=== PATIENT | female | born 1950 | race Caucasian/White ===

== ENCOUNTER 2020-08-21 06:21 | Day surgery (SDC) | payer OTHER, SELFPAY ==
[2020-08-17 10:30] VITALS: BMI 27.8
--- NOTE | 2020-08-19 10:37 | HO.ANESPROP2 ---
Documented by User: Awa Ortega 08/20/20 10:04 HPI - Anesthesia Eval Consult details Narrative: 69yo F for [facility] Past Medical History Medical History GERD (gastroesophageal reflux disease) History of diverticulitis History of snoring HTN (hypertension) Hx of breast cancer Surgical History Surgical History H/O esophagogastroduodenoscopy H/O left mastectomy H/O partial resection of colon H/O right mastectomy History of breast reconstruction Hx of carpal tunnel repair Hx of colonoscopy Hx of hammer toe correction Hx of varicose vein stripping Social History Social History Smoking Status: Former smoker Smoked in Last 30 Days: No Use of substances other than those prescribed or required for medical reasons: No Advance Directives Information Provided: No Recently lost weight without trying: No Meds Allergies Allergy/AdvReac Type Severity Reaction Status Date / Time adhesive Allergy Intermediate blisters Uncoded 08/17/20 10:51 From AUGMENTIN AdvReac Unknown INTOLERANCE Uncoded 08/06/20 15:04 From Augmentin AdvReac Unknown INTOLERANCE Uncoded 08/06/20 15:04 Home Medications Medication Instructions Recorded Confirmed Type anastrozole 1 tab PO DAILY 08/17/20 08/17/20 History cholecalciferol (vitamin D3) 1 cap PO DAILY 08/17/20 08/17/20 History metoprolol succinate 1 tab PO DAILY 08/17/20 08/21/20 History omeprazole 1 cap PO BID 08/17/20 08/17/20 History Exam Exam Date and Time: August 19, 2020 1037 Height,Weight and Vital Signs: Height 5 ft 3 in Weight 71.214 kg Pertinent Lab Results Pertinent Lab Results: EKG 04/26/20: NSR@84, Nonspec ST abn 04/26/20Lytes/Bun/Creat and CBC WNL 04/26/20 Covid RNA Neg Assessment and Plan Assessment Anesthesia Assessment: Chart Reviewed (08/19/20 HT) Documented by User: Paul Esquivel 08/21/20 07:16 PMFSH Past Medical History Medical History GERD (gastroesophageal reflux disease) History of diverticulitis History of snoring HTN (hypertension) Hx of breast cancer Surgical History Surgical History H/O esophagogastroduodenoscopy H/O left mastectomy H/O partial resection of colon H/O right mastectomy History of breast reconstruction Hx of carpal tunnel repair Hx of colonoscopy Hx of hammer toe correction Hx of varicose vein stripping Social History Social History Smoking Status: Former smoker Smoked in Last 30 Days: No Use of substances other than those prescribed or required for medical reasons: No Advance Directives Information Provided: No Recently lost weight without trying: No Meds Allergies Allergy/AdvReac Type Severity Reaction Status Date / Time adhesive Allergy Intermediate blisters Uncoded 08/17/20 10:51 From AUGMENTIN AdvReac Unknown INTOLERANCE Uncoded 08/06/20 15:04 From Augmentin AdvReac Unknown INTOLERANCE Uncoded 08/06/20 15:04 Home Medications Medication Instructions Recorded Confirmed Type anastrozole 1 tab PO DAILY 08/17/20 08/17/20 History cholecalciferol (vitamin D3) 1 cap PO DAILY 08/17/20 08/17/20 History metoprolol succinate 1 tab PO DAILY 08/17/20 08/21/20 History omeprazole 1 cap PO BID 08/17/20 08/17/20 History Exam Airway Mallampati Class: II TM Dist: >3cm Neck ROM: Full Loose/Missing/Broken Teeth: No Heart: rrr Lungs: CTA b/l Assessment and Plan Assessment Anesthesia Assessment: Anesthesia Plan Discussed, Consent Obtained, PAT Visit and Chart Reviewed Final Anesthetic Review NPO: Yes (>8 hours) ASA Class: II Final Preanesthetic Review: No Changes in Pt Med Stat, Meds & Allergies Reviewed, Consent Obtained/Reviewed, Med/Surg/Anes Hx Reviewed and Anes Risks/Benef Reviewed Patient Risk: Low Procedure Risk: Low Anesthetic Plan Anesthetic Plan: MAC: Disposition: Standard PACU
[2020-08-21 06:50] VITALS: BP 131/70; PULSE 79; RESP 16; TEMP 36.3; O2SAT 99; BMI 27.8
[2020-08-21 08:10] VITALS: BP 103/56; PULSE 84; RESP 12; TEMP 36.8; O2SAT 94
--- NOTE | 2020-08-21 08:19 | PM.OP ---
Brief Operative Note Date of procedure: 08/21/20 Pre-op diagnosis: GERD Post-op diagnosis: same Procedure: EGD with biopsy. Small HH, Gastric polyps, Bx EGJ at 34cm, gastric polyps, gastric antrum, and esophagus at 25cm Anesthesia: MAC Surgeon: Adam Austin Pathology: other (gastric antrum, gastric polyps, EGJ at 34cm, esophagus at 25cm) Condition: stable Disposition: PACU
[2020-08-21 08:25] VITALS: BP 105/51; PULSE 78; RESP 18; O2SAT 97
[2020-08-21 08:40] VITALS: BP 113/62; BP 116/62; PULSE 70; PULSE 76; RESP 14; RESP 16; TEMP 36.8; O2SAT 96; O2SAT 97
--- NOTE | 2020-08-21 13:14 | OP_ITS ---
SURGEON: Adam Austin MD INDICATIONS: The patient presents for evaluation of gastroesophageal reflux and chest discomfort. Full consent has been obtained from her for this, including risks of bleeding and perforation. PREOPERATIVE DIAGNOSIS: POSTOPERATIVE DIAGNOSIS: PROCEDURE PERFORMED: Esophagogastroduodenoscopy with biopsy. ESTIMATED BLOOD LOSS: COMPLICATIONS: ANESTHESIA: Monitored anesthesia care. ASSISTANTS: SPECIMENS: PREOPERATIVE DIAGNOSES: Gastroesophageal reflux and chest discomfort. POSTOPERATIVE DIAGNOSES: Gastroesophageal reflux and chest discomfort, small hiatal hernia, gastric polyps, rule out eosinophilic esophagitis. DESCRIPTION OF PROCEDURE: The patient was placed in the left lateral decubitus position. The Olympus video gastroscope was passed in the posterior oropharynx and upper esophagus under direct vision. The scope was passed slowly into the distal esophagus. The gastroesophageal junction appeared at 34 cm. There was some minimal irregularity, but no evidence of esophagitis nor any Nicole's mucosa. There was a small hiatal hernia. The scope was advanced to pylorus and duodenum cannulated the descending portion. The duodenum including the bulb appeared normal without mass or ulceration. The scope was withdrawn back into the stomach. The gastric antrum and body appeared normal with good peristalsis. The scope was retroflexed visualizing the proximal stomach carefully, which appeared normal, without any sign of mass or ulceration, other than hyperplastic appearing gastric polyps. The scope was straightened. Biopsies were obtained from the gastric antrum and from some of the polyps. The scope was withdrawn back in the esophagus. Biopsies were obtained at the EG junction at 34 cm. The esophageal mucosa appeared completely normal. Biopsies were obtained at 25 cm. The scope was withdrawn from the patient. She tolerated the procedure well and was returned to the recovery area in stable condition. IMPRESSION: 1. Gastric polyps. 2. Small hiatal hernia. 3. Gastroesophageal reflux. 4. Rule out eosinophilic esophagitis. PLAN: The patient will continue omeprazole once or twice a day as needed for reflux symptoms. She did have a negative stress test recently, but has been instructed to follow up with Dr. Cherry as to whether any other workup for her chest pain is required. She may be having symptoms of esophageal spasm, although at this point, it is difficult to say. She does have gallstones noted on an ultrasound, but is not having any particular upper abdominal pain, but may need further evaluation of that with a HIDA scan to rule out any atypical symptoms of gallbladder disease that milagro be contributing to the upper GI complaints. She has been advised to see me within 2 to 3 months for a followup visit as well. If symptoms persist before I see her, we can obtain a HIDA scan as mentioned, and may also want to try an antispasmodic to treat any component of esophageal spasm if her workup remains negative from a cardiac standpoint. This has been discussed with the patient today. MD CLARK Hernandez/SHASTA / [id number] MTDD
== END 2020-08-21 09:00 | disposition home or self-care (01) ==
PROVIDERS: PCP Internal Medicine; Visit Provider Internal Medicine
PROC: 0DJ08ZZ Inspection of Upper Intestinal Tract, Via Natural or Artificial Opening Endoscopic (ICD-10-PCS; CPT 43235; principal; 2020-08-21 07:30)
DX: K21.9 Gastro-esophageal reflux disease without esophagitis (principal); R07.89 Other chest pain; K20.90 Esophagitis, unspecified without bleeding; K31.7 Polyp of stomach and duodenum; K22.4 Dyskinesia of esophagus; K44.9 Diaphragmatic hernia without obstruction or gangrene; K80.80 Other cholelithiasis without obstruction; I10 Essential (primary) hypertension; R11.0 Nausea; Z79.899 Other long term (current) drug therapy; Z85.3 Personal history of malignant neoplasm of breast; Z87.891 Personal history of nicotine dependence; Z90.13 Acquired absence of bilateral breasts and nipples
CPT/HCPCS: 43239; 88305; 88342; J0290

== ENCOUNTER 2020-08-28 07:48 | Outpatient (REF) | payer OTHER, SELFPAY ==
[2020-08-28 09:24] LABS: Blood Urea Nitrogen 15 mg/dL (9-16); Estimated Glomerular Filt Rate > 60
== END 2020-08-28 07:49 ==
LOC: HO.LAB 07:48
PROVIDERS: PCP Internal Medicine; Visit Provider Internal Medicine Medical Oncology
DX: C50.919 Malignant neoplasm of unspecified site of unspecified female breast (principal)
CPT/HCPCS: 82565; 84520

== ENCOUNTER 2020-09-03 14:10 | Outpatient (REF) | payer OTHER, SELFPAY ==
--- NOTE | 2020-09-03 14:16 | CT_ITS ---
EXAMINATION: CT CHEST WITH CONTRAST CLINICAL INFORMATION: History of left breast cancer. Left chest pain. COMPARISON: 02/03/2018 TECHNIQUE: Multidetector volumetric CT imaging of the chest was obtained after the administration of 65 mL of Omnipaque 350 intravenous contrast without immediate adverse reactions. Axial MIP volume rendering provided. Sagittal and coronal reformatted images were obtained. This CT examination was performed using dose optimization techniques as appropriate, variously including the following: *Automated exposure control *Adjustment of mA and/or kV according to patient size (this includes techniques or standardized protocols for targeted exams where dose is matched to indication/reason for exam; i.e. extremities or head) *Use of iterative reconstruction technique DLP: 238 mGy-cm FINDINGS: LUNGS: Central airways are patent. No consolidation. No suspicious pulmonary nodules. Likely a 0.3 cm calcified granuloma at the right base on series 5 image 374. No pneumothorax. MEDIASTINUM: The mediastinum is normal. PLEURA: There is no pleural effusion. No pleural mass or thickening. AXILLA: No lymphadenopathy. Bilateral chest wall surgical clips. UPPER ABDOMEN: Cholelithiasis. No inflammatory changes of the gallbladder. Area of increased density in the right lobe of the liver is similar to prior from 2018. OSSEOUS STRUCTURES: No acute or suspicious osseous abnormality. Mild degenerative changes of the spine. IMPRESSION: No suspicious findings in the chest. No acute pulmonary finding. No lymphadenopathy. No osseous abnormality.
[2020-09-03] MEDS: iohexoL 350 MG/ML 100 ML INFUS..BTL IV (15:32)
== END 2020-09-03 14:11 | disposition home or self-care (01) ==
LOC: HO.CT 14:10
PROVIDERS: PCP Internal Medicine; Visit Provider Internal Medicine Medical Oncology
DX: R07.89 Other chest pain (principal); Z85.3 Personal history of malignant neoplasm of breast; J84.10 Pulmonary fibrosis, unspecified; R93.2 Abnormal findings on diagnostic imaging of liver and biliary tract; K80.20 Calculus of gallbladder without cholecystitis without obstruction
CPT/HCPCS: 71260

== ENCOUNTER 2020-09-29 15:23 | Outpatient (REF) | payer OTHER, SELFPAY ==
--- NOTE | 2020-09-29 15:35 | US_ITS ---
EXAMINATION: US PELVIS COMPLETE US PELVIS ENDOVAGINAL CLINICAL INFORMATION: Bloating COMPARISON: Small bowel follow-through 05/13/2020. Prior CT scan 08/13/2018 TECHNIQUE: Transabdominal and transvaginal images of the pelvis were obtained. FINDINGS: UTERUS: Anteverted. Normal size and contour, measuring 5.5 x 2.3 x 4.1 cm (cervix to fundus x AP x transverse). The endometrial stripe is slightly heterogeneous but it is normal in thickness, measuring 0.3 cm in width. RIGHT OVARY: Not seen. No adnexal mass. LEFT OVARY: Not seen. No adnexal mass. FREE FLUID: No pelvic free fluid. US/US pelvic complete IMPRESSION: The endometrial stripe is slightly heterogeneous but it is thin, within normal limits in a postmenopausal female patient. Neither ovary is seen but there is no adnexal mass or free fluid present.
--- NOTE | 2020-09-29 15:35 | US_ITS ---
EXAMINATION: US PELVIS COMPLETE US PELVIS ENDOVAGINAL CLINICAL INFORMATION: Bloating COMPARISON: Small bowel follow-through 05/13/2020. Prior CT scan 08/13/2018 TECHNIQUE: Transabdominal and transvaginal images of the pelvis were obtained. FINDINGS: UTERUS: Anteverted. Normal size and contour, measuring 5.5 x 2.3 x 4.1 cm (cervix to fundus x AP x transverse). The endometrial stripe is slightly heterogeneous but it is normal in thickness, measuring 0.3 cm in width. RIGHT OVARY: Not seen. No adnexal mass. LEFT OVARY: Not seen. No adnexal mass. FREE FLUID: No pelvic free fluid. US/US transvaginal IMPRESSION: The endometrial stripe is slightly heterogeneous but it is thin, within normal limits in a postmenopausal female patient. Neither ovary is seen but there is no adnexal mass or free fluid present.
== END 2020-09-29 15:24 | disposition home or self-care (01) ==
LOC: HO.HMGCX 15:23
PROVIDERS: PCP Internal Medicine; Visit Provider Obstetrics & Gynecology Gynecology
DX: R14.0 Abdominal distension (gaseous) (principal)
CPT/HCPCS: 76830; 76856

== ENCOUNTER 2020-12-03 09:52 | Outpatient (REF) | payer OTHER, SELFPAY ==
[2020-12-03 10:13] LABS: COVID-19 Test Negative (Negative); IDNOW Serial# 55D5AD1C
== END 2020-12-03 09:53 | disposition home or self-care (01) ==
LOC: HO.EMPCOV 09:52
PROVIDERS: Visit Provider Internal Medicine
DX: Z20.822 Contact with and (suspected) exposure to COVID-19 (principal)
CPT/HCPCS: 36415; 87635; C9803

== ENCOUNTER 2020-12-24 13:05 | Outpatient (REF) | payer OTHER, SELFPAY ==
[2020-12-24 13:26] LABS: COVID-19 Test Negative (Negative); IDNOW Serial# 55D5AD1C
== END 2020-12-24 13:06 | disposition home or self-care (01) ==
LOC: HO.LAB 13:05
PROVIDERS: Visit Provider Internal Medicine
DX: Z20.822 Contact with and (suspected) exposure to COVID-19 (principal)
CPT/HCPCS: 36415; 87635; C9803

== ENCOUNTER 2020-12-30 15:01 | Outpatient (REF) | payer OTHER, SELFPAY ==
[2020-12-30 15:28] LABS: COVID-19 Test Negative (Negative)
== END 2020-12-30 15:02 | disposition home or self-care (01) ==
LOC: HO.EMPCOV 15:01
PROVIDERS: Visit Provider Internal Medicine
DX: Z20.822 Contact with and (suspected) exposure to COVID-19 (principal)
CPT/HCPCS: 36415; 87635; C9803

== ENCOUNTER 2021-01-22 08:47 | Outpatient (REF) | payer OTHER, SELFPAY ==
--- NOTE | ~2021-01-22 | XR_ITS ---
EXAMINATION: XR CHEST CLINICAL INFORMATION: Chest pain COMPARISON: Previous chest x-ray most recent April 2020 TECHNIQUE: 2 views of the chest were obtained. FINDINGS: The cardiac and mediastinal contours are stable. The lungs are clear. There is no pleural effusion or pneumothorax. There are surgical clips projecting over both breasts and the left axilla. There are degenerative changes of the spine and scoliosis.. XR/XR chest 2V IMPRESSION: No evidence for acute disease in the chest.
== END 2021-01-22 08:48 | disposition home or self-care (01) ==
LOC: HO.HMGCX 08:47
PROVIDERS: PCP Internal Medicine; Visit Provider Internal Medicine
DX: R07.9 Chest pain, unspecified (principal); Z85.3 Personal history of malignant neoplasm of breast
CPT/HCPCS: 71046

== ENCOUNTER 2021-01-28 06:29 | Outpatient (REF) | payer OTHER, SELFPAY ==
[2021-01-28 07:49] LABS: Hematocrit 44.7 % (37-47); Hemoglobin 14.5 g/dl (12.0-16.0); Mean Corpuscular HGB Conc 32.4 g/dl (31.0-35.0); Mean Corpuscular Hemoglobin 29.9 pg (27.0-33.0); Mean Corpuscular Volume 92.2 fL (80-98); Mean Platelet Volume 11.5 fL (9.4-12.3); Platelet Count 265 X10*3/uL (160-400); Red Blood Count 4.85 X10*6/uL (4.20-5.50); Red Cell Distribution Width 12.4 % (11.0-16.0); White Blood Count 6.2 X10*3/uL (4.8-10.8)
[2021-01-28 08:05] LABS: Alanine Aminotransferase 17 U/L (0-31); Albumin Level 4.1 g/dL (3.5-5.0); Alkaline Phosphatase 67 U/L (39-117); Anion Gap 13 (12-20); Aspartate Amino Transferase 16 U/L (5-31); Bilirubin Total 0.7 mg/dL (0.0-1.0); Blood Urea Nitrogen 15 mg/dL (9-16); Calcium 9.2 mg/dL (8.4-10.2); Carbon Dioxide 29 mmol/L (22-29); Chloride 104 mmol/L (96-108); Cholesterol 214 mg/dL; Estimated Glomerular Filt Rate > 60; Glucose Fasting 100 mg/dL (60-99); HDL Cholesterol 57 mg/dL; LDL Cholesterol Calculated 131 mg/dl; Potassium 4.6 mmol/L (3.3-5.1); Sodium 141 mmol/L (135-145); Total Protein 6.6 g/dL (6.5-8.0); Triglycerides 132 mg/dL
[2021-01-28 08:27] LABS: TSH reflex Free T4 0.97 uIU/mL (0.32-4.0); Vitamin D 25-OH Total 45.8 ng/mL (>30)
== END 2021-01-28 06:30 | disposition home or self-care (01) ==
LOC: HO.LAB 06:29
PROVIDERS: PCP Internal Medicine; Visit Provider Internal Medicine
DX: Z00.00 Encounter for general adult medical examination without abnormal findings (principal); K43.9 Ventral hernia without obstruction or gangrene; I10 Essential (primary) hypertension
CPT/HCPCS: 36415; 80053; 80061; 82306; 84443; 85027

== ENCOUNTER 2021-02-23 12:33 | Outpatient (REF) | payer OTHER, SELFPAY ==
--- NOTE | ~2021-02-23 | CT_ITS ---
EXAMINATION: CT ABDOMEN AND PELVIS WITH CONTRAST CLINICAL INFORMATION: Ventral hernia COMPARISON: Abdominal ultrasound January [address] of the abdomen and pelvis July 2018 TECHNIQUE: Multidetector volumetric images were obtained from the superior aspect of the liver through the pubic symphysis following administration 85 mL of Omnipaque 350 intravenous contrast. Sagittal and coronal reformatted images were obtained on the technologist's workstation. Oral contrast: Yes This CT examination was performed using dose optimization techniques as appropriate, variously including the following: *Automated exposure control *Adjustment of mA and/or kV according to patient size (this includes techniques or standardized protocols for targeted exams where dose is matched to indication/reason for exam; i.e. extremities or head) *Use of iterative reconstruction technique DLP: 407 mGy-cm FINDINGS: LUNG BASES: The visualized lung bases are unremarkable. LIVER, GALLBLADDER, AND BILIARY TREE: The liver is normal in size, shape, and attenuation. No focal hepatic lesion or biliary ductal dilatation is present. There is a gallstone in the gallbladder. The gallbladder is otherwise unremarkable. PANCREAS: Unremarkable. SPLEEN: Unremarkable. ADRENAL GLANDS: Unremarkable. KIDNEYS AND URETERS: The kidneys are normal in size, shape, and attenuation. There are bilateral peripelvic cysts. No hydronephrosis, hydroureter, or calculi seen. No perinephric stranding. BLADDER: Right bladder ear similar to previous exam. The bladder is otherwise unremarkable. GASTROINTESTINAL TRACT: There is mild diverticulosis of the colon. The small and large bowel are otherwise unremarkable. The appendix is unremarkable. The stomach is unremarkable. ABDOMINAL WALL: There are postsurgical changes to the abdominal wall and left inguinal region. No hernia is seen. LYMPH NODES: Normal. VASCULAR: Unremarkable. PELVIC VISCERA: Unremarkable. OSSEOUS STRUCTURES: Unremarkable. CT/CT abdomen pelvis w con IMPRESSION: Postsurgical changes to the anterior abdominal wall and left inguinal region. No hernia is seen. Mild diverticulosis of the colon. Gallstone. Bilateral renal peripelvic cysts.
[2021-02-23] MEDS: iohexoL 300 MG/ML 50 ML INFUS..BTL IV (16:07)
[2021-02-23] MEDS: Barium Sulfate Oral (Berry) 450 ML ORAL.SUSP 900 ML PO (16:08)
== END 2021-02-23 12:34 | disposition home or self-care (01) ==
LOC: HO.CT 12:33
PROVIDERS: PCP Internal Medicine; Visit Provider Internal Medicine
DX: K43.9 Ventral hernia without obstruction or gangrene (principal)
CPT/HCPCS: 74177; Q9967

== ENCOUNTER 2021-07-10 12:45 | Emergency (ER) | payer OTHER, SELFPAY ==
--- NOTE | 2021-07-10 | ECG_ITS ---
Test Reason : CP Blood Pressure : / mmHG Vent. Rate : 081 BPM Atrial Rate : 081 BPM P-R Int : 156 ms QRS Dur : 086 ms QT Int : 360 ms P-R-T Axes : 056 013 050 degrees QTc Int : 418 ms Normal sinus rhythm Normal ECG When compared with ECG of 26-APR-2020 04:00, No significant change was found Referred By: Generic ED Physician Electronically Signed By:ADRIENNE NASH
--- NOTE | ~2021-07-10 | XR_ITS ---
EXAMINATION: XR CHEST CLINICAL INFORMATION: Chest pain. COMPARISON: 01/22/2021 chest radiographs. TECHNIQUE: 2 views of the chest were obtained. FINDINGS: The lungs are clear. There are no pleural effusions. The heart and mediastinal structures are unremarkable. Multiple overlying surgical clips are again noted. The visualized osseous structures are unremarkable. XR/XR chest 2V IMPRESSION: No acute cardiopulmonary process.
[2021-07-10 12:50] VITALS: BP 129/78; PULSE 82; RESP 16; TEMP 36.6; O2SAT 98; BMI 27.3
--- NOTE | 2021-07-10 13:18 | ED.CHESTPAIN ---
HPI - Chest Pain General Chief Complaint: Chest Pain Stated Complaint: chest pain left side head pain Time Seen by Provider: 07/10/21 13:15 Source: patient Mode of arrival: ambulatory Limitations: no limitations History of Present Illness HPI narrative: 70-year-old female with a past medical history of hypertension, breast cancer in 2015, GERD, and anxiety, presents for left-sided chest pain and pressure are that started at 9:00 a.m. this morning. Patient was vacuuming, and when she stops vacuuming she felt suddenly extremely fatigued. The chest pain has been a 2/10, it is left-sided. It has been intermittent. Patient had no nausea, no sweating, no shortness of breath with this chest pain. Patient has had this chest pain before, with fatigue before, but this fatigue was more pronounced. The chest pain can be with exertion or nonexertional. Reports she had chest pain yesterday that lasted all day. Patient often has chest pain, and has a family history significant for 4 of her siblings having MIs in their late 30s, and her mom from a massive OH at age 59. Patient is a former smoker. Patient had varicose vein stripping 2 years ago. Patient sees cardiology at [facility], reports being worked up with a stress test, echo, and catheterization 4 years ago. No stents or bypass. In addition, patient has had left-sided headache since yesterday. Was gradual in onset, with no fevers blurry vision neck pain, or focal neurological deficits. Headache is now 2/10 and is located on the left side of her head. The MD complaint: chest pain Onset (ago): hour(s) (4) Timing of current episode: episodic Prior episodes: Yes Onset: during rest Pain location: left chest Pain radiation: none Severity: mild Pain scale (0-10): 2 Quality: sharp Relieving factors: nothing Exacerbating factors: nothing Treatment prior to arrival: none Risk Factors Coronary artery disease risk factors: smoking history, hypertension and family history of CAD before age 50 Related Data On Oral Contraceptives: No Home Medications Medication Instructions Recorded Confirmed omeprazole 20 mg capsule,delayed 1 cap PO BID 08/17/20 03/18/21 release Previous Rx's Medication Instructions Recorded metoprolol succinate 50 mg 50 mg PO DAILY #90 tab 12/22/20 tablet,extended release 24 hr doxycycline hyclate 100 mg tablet 100 mg PO BID #14 tab 03/18/21 famotidine 40 mg tablet (Pepcid) 40 mg PO BEDTIME #30 tab 03/18/21 cholecalciferol (vitamin D3) 50 50 mcg PO DAILY #90 cap 05/27/21 mcg (2,000 unit) capsule Allergies Allergy/AdvReac Type Severity Reaction Status Date / Time adhesive Allergy Intermediate blisters Uncoded 03/18/21 15:33 From AUGMENTIN AdvReac Unknown INTOLERANCE Uncoded 03/18/21 15:33 From Augmentin AdvReac Unknown INTOLERANCE Uncoded 03/18/21 15:33 Review of Systems Constitutional: Constitutional: Denies body ache(s), Denies chills, Reports fatigue, Denies fever(s), Reports headache(s), Denies malaise and Denies weakness Eyes: Eyes: Denies blurry vision, Denies change in vision and Denies diplopia ENT: Denies vertigo, Denies dizziness, Denies otalgia, Reports headache(s), Denies mouth pain, Denies disequilibrium, Denies post nasal drip, Denies sinus pain, Denies sinus pressure, Denies sore throat and Denies throat swelling Cardiovascular: Cardiovascular: Reports chest pain, Denies syncope, Denies leg edema, Denies lightheadedness, Denies Loss of Consciousness, Denies palpitations and Denies dyspnea Respiratory: Respiratory: Denies chest congestion, Denies cough and Denies dyspnea Gastrointestinal: Gastrointestinal: Denies abdominal pain, Denies hematochezia, Denies constipation, Denies diarrhea and Denies vomiting Genitourinary: Genitourinary: Reports no additional female genitourinary complaints Musculoskeletal: Musculoskeletal: Reports no additional musculoskeletal complaints, Denies abnormal gait, Denies numbness and Denies tingling Integumentary/Breasts: Skin/Breast: Denies erythema and Denies rash Neurologic: Denies Abnormal speech present, Denies abnormal gait, Denies confusion, Denies vertigo, Denies dizziness, Denies syncope, Reports headache(s), Denies focal weakness, Denies numbness, Denies seizure-like activity, Denies Sensory deficit (Neuro), Denies tingling, Denies disequilibrium and Denies weakness Psychiatric: Psychiatric: Denies anxiety, Denies confusion and Denies depression Endocrine: Endocrine: Reports fatigue and Denies palpitations Allergic/Immunologic: Allergic/Immunologic: Denies throat swelling PMFSH Past Medical History Medical History Abdominal pain Abdominal wall hernia Annual physical exam Anxiety GERD (gastroesophageal reflux disease) History of diverticulitis History of snoring HTN (hypertension) Hx of breast cancer Osteoporosis Rectal pain Surgical History H/O esophagogastroduodenoscopy H/O left mastectomy H/O partial resection of colon H/O right mastectomy History of breast reconstruction Hx of carpal tunnel repair Hx of colonoscopy Hx of hammer toe correction Hx of varicose vein stripping Family History Family History Father Alzheimer's dementia Unknown family medical history Mother CVD (cardiovascular disease) Myocardial infarction Maternal Grandmother Diabetes mellitus Maternal Grandfather No problems noted. Paternal Grandfather No problems noted. Paternal Grandmother No problems noted. Daughter No problems noted. Daughter No problems noted. Brother No problems noted. Brother No problems noted. Brother No problems noted. Brother No problems noted. Brother Myocardial infarction Brother Throat cancer Myocardial infarction Maternal Aunt Stomach cancer Sister Myocardial infarction Social History Social History Alcohol intake: never Patient Tobacco Use Status: Never used Tobacco Smoked in Last 30 Days: No Use of substances other than those prescribed or required for medical reasons: No Advance Directives: No Advance Directives Information Provided: Yes Physical Exam Vital Signs: Vital Signs: Last Vital Signs Temp 97.8 F 07/10/21 14:16 Pulse 63 07/10/21 15:05 Resp 16 07/10/21 15:05 BP 118/69 07/10/21 15:05 Pulse Ox 98 07/10/21 15:05 Body Mass Index 27.3 Const: General: comfortable, no acute distress, alert and awake; No confusion Nutritional Appearance: well nourished Orientation/consciousness: patient oriented x3 and No confusion Limitations: no limitations HENMT: Head: Yes normal to inspection, Yes normocephalic and Yes atraumatic Ears: hearing grossly normal bilaterally, external ears normal, TM's normal bilaterally and EAC's normal General nose exam: Normal external nose present Face and sinus: Yes normal facial exam and Yes sinuses nontender Mouth: Normal oral and palatal mucosa present Throat: Yes posterior oropharynx normal Eyes: Conjunctivae: conjunctivae normal Pupils: Equal, round and reactive pupils present EOM: EOMs intact bilaterally and No Nystagmus present Neck: Neck: Yes full ROM, Yes no lymphadenopathy and Yes supple Resp: Effort & Inspection: normal respiratory effort and able to speak in complete sentences Auscultation: clear to auscultation bilaterally, no crackles, no rales, no rhonchi and no wheezes Cardio: Rate: regular rate Rhythm: regular rhythm Heart sounds: S1 normal heart sound present and S2 normal heart sound present GI: Inspection: Yes normal to inspection Palpation (GI): Soft to palpation, nontender, no guarding and not rigid Percussion: Yes normal to percussion Auscultation: normal bowel sounds Skin: General skin exam: no rashes or lesions noted Neuro: General: patient oriented x3 and No confusion Cranial nerves: Yes CN's II-XII intact bilaterally, Yes Facial sensation intact/muscles of mastication intact, Yes Equal, round and reactive pupils present, Yes Bilaterally intact EOM present, Yes Nystagmus not present, Yes Normal facial strength present, Yes Midline tongue present, Yes Ability to bilaterally rotate head present, Yes Ability to bilaterally elevate shoulders present and No Nystagmus present Cognition (Neuro): normal cognition Speech: No Abnormal speech present Motor exam (neuro): 5/5 motor strength present throughout Sensory Exam: No Sensory deficit (Neuro) Deep tendon reflexes (DTR's): Right patellar reflex intensity grade: 1+ and Left patellar reflex intensity grade: 1+ Coordination: [id number] test normal Pupils: Normal pupillary reactivity/response: bilateral Extrem: General: Yes normal to inspection and Yes full ROM Psych: Appearance: grossly normal Affect: Anxious affect present Attitude: cooperative Thought process: Normal thought process present Course Course Course Narrative: 62-year-old female with significant family history for coronary artery disease before age 50 presents with chest pain that started at 9:00 a.m. with profound fatigue. Patient had chest pain yesterday also. does not have chest pain on my exam. Patient has a history of left-sided chest pain, and has had chest pain intermittently for months, and had low this left-sided chest pain yesterday all day. Also endorses gradual onset mild headache. Benign exam, vitals are stable, no neurological deficits. EKG shows normal sinus, negative troponin, chest x-ray is clear, labs are unremarkable. D-dimer is negative. Given aspirin, Tylenol. Given that patient has had chest pain that worsened today, but was present yesterday, 1 troponin is sufficient. Referred patient to Cardiology, counseled her to take 1 baby aspirin a day. MDM - Chest Pain Lab Data Result diagrams: 07/10/21 14:06 07/10/21 14:06 Labs: Lab Results 07/10/21 07/10/21 07/10/21 Range/Units 14:06 14:06 14:06 WBC 8.4 (4.8-10.8) X10*3/uL RBC 4.69 (4.20-5.50) X10*6/uL Hgb 14.0 (12.0-16.0) g/dl Hct 42.4 (37-47) % MCV 90.4 (80-98) fL MCH 29.9 (27.0-33.0) pg MCHC 33.0 (31.0-35.0) g/dl RDW 12.6 (11.0-16.0) % Plt Count 269 (160-400) X10*3/uL MPV 10.6 (9.4-12.3) fL Immature Gran % (Auto) 0.2 (0.0-0.4) % Neut % (Auto) 57.7 (45-73) % Lymph % (Auto) 32.1 (20-40) % [place] % (Auto) 8.3 (2-11) % Eos % (Auto) 1.1 (0-4) % Baso % (Auto) 0.6 (0-2) % Lymph # (Auto) 2.7 (1.2-4.9) X10*3/uL [place] # (Auto) 0.7 (0.1-1.2) X10*3/uL Eos # (Auto) 0.1 (0.0-0.4) X10*3/uL Baso # (Auto) 0.1 (0.0-0.2) X10*3/uL Abs Immat Gran (auto) 0.02 (0.00-0.03) X10*3/uL Absolute Neuts (auto) 4.9 (2.0-8.3) X10*3/uL Absolute Nucleated RBC 0.000 (0.0-0.012) X10*3/uL Nucleated RBC % (auto) 0.0 (0.0-0.2) /100WBC D-Dimer NG/ML Sodium 142 (135-145) mmol/L Potassium 4.6 (3.3-5.1) mmol/L Chloride 106 (96-108) mmol/L Carbon Dioxide 27 (22-29) mmol/L Anion Gap 14 (12-20) BUN 12 (9-16) mg/dL Creatinine 0.72 (0.5-1.4) mg/dL Estim Creat Clear Calc 70.0 Estimated GFR > 60 Random Glucose 100 (60-115) mg/dL Calcium 9.7 (8.4-10.2) mg/dL Troponin I High Sens < 3.5 (<3.5-17.0) ng/L 07/10/21 Range/Units 16:06 WBC (4.8-10.8) X10*3/uL RBC (4.20-5.50) X10*6/uL Hgb (12.0-16.0) g/dl Hct (37-47) % MCV (80-98) fL MCH (27.0-33.0) pg MCHC (31.0-35.0) g/dl RDW (11.0-16.0) % Plt Count (160-400) X10*3/uL MPV (9.4-12.3) fL Immature Gran % (Auto) (0.0-0.4) % Neut % (Auto) (45-73) % Lymph % (Auto) (20-40) % [place] % (Auto) (2-11) % Eos % (Auto) (0-4) % Baso % (Auto) (0-2) % Lymph # (Auto) (1.2-4.9) X10*3/uL [place] # (Auto) (0.1-1.2) X10*3/uL Eos # (Auto) (0.0-0.4) X10*3/uL Baso # (Auto) (0.0-0.2) X10*3/uL Abs Immat Gran (auto) (0.00-0.03) X10*3/uL Absolute Neuts (auto) (2.0-8.3) X10*3/uL Absolute Nucleated RBC (0.0-0.012) X10*3/uL Nucleated RBC % (auto) (0.0-0.2) /100WBC D-Dimer < 200 NG/ML Sodium (135-145) mmol/L Potassium (3.3-5.1) mmol/L Chloride (96-108) mmol/L Carbon Dioxide (22-29) mmol/L Anion Gap (12-20) BUN (9-16) mg/dL Creatinine (0.5-1.4) mg/dL Estim Creat Clear Calc Estimated GFR Random Glucose (60-115) mg/dL Calcium (8.4-10.2) mg/dL Troponin I High Sens (<3.5-17.0) ng/L ECG Data ECG #1: Interpretation: Normal axis, sinus rhythm, rate 81, MT interval 150 seconds, QRS duration 86, QTC 418, no ST elevations or depressions, no T-wave inversions Discharge Plan Discharge Clinical Impression: Chest pain Qualifiers: Chest pain type: unspecified Qualified Code(s): R07.9 - Chest pain, unspecified Patient Disposition: Home, Self-Care Instructions: Chest Pain (ED) Additional Instructions: Please call . Please take 1 baby aspirin a day, 81 mg Please return to emergency room if you have worsening chest pain, with or without shortness of breath, nausea, vomiting, or sweatiness. Please return for any new or concerning symptoms Prescriptions: No Action metoprolol succinate 50 mg tablet extended release 24 hr 50 mg PO DAILY Qty: 90 RF: 3 cholecalciferol (vitamin D3) 50 mcg (2,000 unit) capsule 50 mcg PO DAILY Qty: 90 RF: 3 omeprazole 20 mg capsule,delayed release(DR/EC) 1 cap PO BID RF: 0 doxycycline hyclate 100 mg tablet 100 mg PO BID Qty: 14 RF: 0 famotidine [Pepcid] 40 mg tablet 40 mg PO BEDTIME Qty: 30 RF: 2 Referrals: Sal Cherry MD [Physician] - 2 days (chronic chest pain, worsening)
[2021-07-10] MEDS: Acetaminophen 325 MG TABLET 650 MG PO (13:50)
[2021-07-10] MEDS: Aspirin 81 MG TAB.CHEW 324 MG PO (13:50)
[2021-07-10 14:12] LABS: MANUAL DIFF FLAG NO
[2021-07-10 14:15] LABS: Basophils Absolute Auto 0.1 X10*3/uL (0.0-0.2); Basophils Percent Auto 0.6 % (0-2); Eosinophils Absolute Auto 0.1 X10*3/uL (0.0-0.4); Eosinophils Percent Auto 1.1 % (0-4); Hematocrit 42.4 % (37-47); Imm Gran Abs Auto 0.02 X10*3/uL (0.00-0.03); Imm Gran Pct Auto 0.2 % (0.0-0.4); Lymphocytes Absolute Auto 2.7 X10*3/uL (1.2-4.9); Lymphocytes Percent Auto 32.1 % (20-40); Mean Corpuscular Hemoglobin 29.9 pg (27.0-33.0); Mean Corpuscular Volume 90.4 fL (80-98); Mean Platelet Volume 10.6 fL (9.4-12.3); Monocytes Absolute Auto 0.7 X10*3/uL (0.1-1.2); Monocytes Percent Auto 8.3 % (2-11); Neutrophils Absolute Auto 4.9 X10*3/uL (2.0-8.3); Neutrophils Percent Auto 57.7 % (45-73); Platelet Count 269 X10*3/uL (160-400); Red Blood Count 4.69 X10*6/uL (4.20-5.50); Red Cell Distribution Width 12.6 % (11.0-16.0); White Blood Count 8.4 X10*3/uL (4.8-10.8)
[2021-07-10 14:16] VITALS: BP 129/78; PULSE 82; RESP 16; TEMP 36.6; O2SAT 98
[2021-07-10 14:32] LABS: Anion Gap 14 (12-20); Blood Urea Nitrogen 12 mg/dL (9-16); Calcium 9.7 mg/dL (8.4-10.2); Carbon Dioxide 27 mmol/L (22-29); Chloride 106 mmol/L (96-108); Estimated Glomerular Filt Rate > 60; Glucose Random 100 mg/dL (60-115); Potassium 4.6 mmol/L (3.3-5.1); Sodium 142 mmol/L (135-145)
[2021-07-10 14:38] LABS: Troponin-I High Sensitivity < 3.5 ng/L (<3.5-17.0)
[2021-07-10 15:05] VITALS: BP 118/69; PULSE 63; RESP 16; O2SAT 98
[2021-07-10 16:21] LABS: D Dimer < 200 NG/ML
[2021-07-10 17:12] VITALS: BP 144/72; PULSE 69; RESP 16; O2SAT 98
== END 2021-07-10 17:35 | disposition home or self-care (01) ==
PROVIDERS: Physician Assistant; Emergency Provider Internal Medicine; PCP Internal Medicine
DX: R07.9 Chest pain, unspecified (principal); I10 Essential (primary) hypertension; Z85.3 Personal history of malignant neoplasm of breast; Z79.899 Other long term (current) drug therapy
CPT/HCPCS: 36415; 71046; 80048; 84484; 85025; 85379; 93005; 99284; 99285

== ENCOUNTER → 2021-07-13 11:15 | Outpatient (BNVA) | payer OTHER, SELFPAY | PROVIDERS: PCP Internal Medicine; Visit Provider Surgery Vascular Surgery ==

== ENCOUNTER → 2021-07-22 15:26 | Outpatient (BNVA) | payer OTHER, SELFPAY | PROVIDERS: PCP Internal Medicine; Referring Provider Internal Medicine; Visit Provider Internal Medicine Cardiovascular Disease ==

== ENCOUNTER 2021-08-04 08:26 | Outpatient (REF) | payer OTHER, SELFPAY ==
--- NOTE | ~2021-08-04 | US_ITS ---
EXAMINATION: COLOR-FLOW DUPLEX IMAGING OF THE BILATERAL LOWER EXTREMITY ARTERIAL SYSTEM. VELOCITY MEASUREMENTS THROUGHOUT THE FEMORAL ARTERIES WITH ANKLE-BRACHIAL PERIPHERAL ARTERIAL TESTING. Interventional Radiologist: Juan Jose Valera M.D., F.S.I.R., F.A.C.R. CLINICAL INFORMATION: This is a 70-year-old female with hypertension. Peripheral vascular disease. RIGHT FEMORAL RUNOFF VELOCITIES: The right common femoral artery measures 131 cm/s and triphasic. The right profunda femoral artery is 91 cm/s and is biphasic. Right proximal superficial femoral artery measures 114 cm/s and triphasic. Mid superficial femoral artery is 116 cm/s and biphasic. Distal right superficial femoral artery measures 84 cm/s and is biphasic. Right popliteal velocity measures 51 cm/s and is biphasic. The posterior tibial artery velocity measures 70 cm/s and was biphasic. The right ankle-brachial index is 1.14. LEFT FEMORAL RUNOFF VELOCITIES: The left common femoral artery measures 155 cm/s and triphasic The left profunda femoral artery is 105 cm/s and is biphasic. Left proximal superficial femoral artery measures 79 cm/s and biphasic. Mid superficial femoral artery is 114 cm/s and biphasic. Distal left superficial femoral artery measures 102 cm/s and is biphasic. Left popliteal velocity measures 70 cm/s and is biphasic. The posterior tibial artery velocity measures 61 cm/s and was monophasic. The left brachial index is 1.20. There is a left-sided Matias's cyst measuring 2.0 x 1.0 x 1.9 cm. US/US MILI complete IMPRESSION: 1. Normal bilateral peripheral arterial testing without evidence of hemodynamically significant stenosis. 2. Left Matias's cyst.
--- NOTE | ~2021-08-04 | US_ITS ---
EXAMINATION: COLOR-FLOW DUPLEX IMAGING OF THE BILATERAL LOWER EXTREMITY ARTERIAL SYSTEM. VELOCITY MEASUREMENTS THROUGHOUT THE FEMORAL ARTERIES WITH ANKLE-BRACHIAL PERIPHERAL ARTERIAL TESTING. Interventional Radiologist: Juan Jose Valera M.D., F.S.I.R., F.A.C.R. CLINICAL INFORMATION: This is a 70-year-old female with hypertension. Peripheral vascular disease. RIGHT FEMORAL RUNOFF VELOCITIES: The right common femoral artery measures 131 cm/s and triphasic. The right profunda femoral artery is 91 cm/s and is biphasic. Right proximal superficial femoral artery measures 114 cm/s and triphasic. Mid superficial femoral artery is 116 cm/s and biphasic. Distal right superficial femoral artery measures 84 cm/s and is biphasic. Right popliteal velocity measures 51 cm/s and is biphasic. The posterior tibial artery velocity measures 70 cm/s and was biphasic. The right ankle-brachial index is 1.14. LEFT FEMORAL RUNOFF VELOCITIES: The left common femoral artery measures 155 cm/s and triphasic The left profunda femoral artery is 105 cm/s and is biphasic. Left proximal superficial femoral artery measures 79 cm/s and biphasic. Mid superficial femoral artery is 114 cm/s and biphasic. Distal left superficial femoral artery measures 102 cm/s and is biphasic. Left popliteal velocity measures 70 cm/s and is biphasic. The posterior tibial artery velocity measures 61 cm/s and was monophasic. The left brachial index is 1.20. There is a left-sided Matias's cyst measuring 2.0 x 1.0 x 1.9 cm. US/US arterial duplex LE BI IMPRESSION: 1. Normal bilateral peripheral arterial testing without evidence of hemodynamically significant stenosis. 2. Left Matias's cyst.
== END 2021-08-04 08:27 | disposition home or self-care (01) ==
LOC: HO.US 08:26
PROVIDERS: Visit Provider Surgery Vascular Surgery
DX: I73.9 Peripheral vascular disease, unspecified (principal); I10 Essential (primary) hypertension; M71.22 Synovial cyst of popliteal space [Baker], left knee
CPT/HCPCS: 93923; 93925

== ENCOUNTER 2021-09-21 08:28 | Outpatient (REF) | payer OTHER, SELFPAY ==
[2021-09-21 12:04] LABS: Anion Gap 12 (12-20); Blood Urea Nitrogen 13 mg/dL (9-16); Calcium 9.3 mg/dL (8.4-10.2); Carbon Dioxide 26 mmol/L (22-29); Chloride 108 mmol/L (96-108); Estimated Glomerular Filt Rate > 60; Glucose Random 94 mg/dL (60-115); Potassium 4.8 mmol/L (3.3-5.1); Sodium 141 mmol/L (135-145)
[2021-09-23 13:46] LABS: CRP High Sensitivity 6.2 mg/L
== END 2021-09-21 08:29 | disposition home or self-care (01) ==
LOC: HO.HMGCLDS 08:28
PROVIDERS: PCP Internal Medicine; Visit Provider Internal Medicine Cardiovascular Disease
DX: R07.9 Chest pain, unspecified (principal); E78.5 Hyperlipidemia, unspecified
CPT/HCPCS: 36415; 80048; 86141

== ENCOUNTER 2021-09-25 06:57 | Outpatient (REF) | payer OTHER, SELFPAY ==
[2021-09-25 11:14] LABS: Cholesterol 213 mg/dL; HDL Cholesterol 64 mg/dL; LDL Cholesterol Calculated 120 mg/dl; Triglycerides 146 mg/dL
== END 2021-09-25 06:58 | disposition home or self-care (01) ==
LOC: HO.HMGCLDS 06:57
PROVIDERS: PCP Internal Medicine; Visit Provider Internal Medicine Cardiovascular Disease
DX: I25.10 Atherosclerotic heart disease of native coronary artery without angina pectoris (principal); R07.9 Chest pain, unspecified
CPT/HCPCS: 36415; 80061

== ENCOUNTER 2021-09-29 08:15 | Outpatient (REF) | payer OTHER, SELFPAY ==
--- NOTE | ~2021-09-29 | MM_ITS ---
EXAMINATION: BONE DENSITOMETRY CLINICAL INDICATION: Osteoporosis. COMPARISON: Previous BD dated 08/29/2019 and baseline BD dated 10/13/2009. TECHNIQUE: Using a [employer] DXA System (software version: 13.1) manufactured by [employer], dual-energy x-ray absorptiometry was performed of the lumbar spine and left hip. The images are of good technical quality. Summary results are attached. FINDINGS: AP SPINE L1-L4: Current: BMD 1.012 g/cm2, Z-score 0.1, T-score -1.4, osteopenia, 2.8% increase from previous, 5.7% decrease from baseline (<5% change is not significant). Prior: BMD 0.984 g/cm2. Baseline: BMD 1.073 g/cm2. LEFT FEMUR, NECK: Current: BMD 0.698 g/cm2, Z-score -0.9, T-score -2.4, osteopenia. Prior: BMD 0.700 g/cm2. Baseline: BMD 0.773 g/cm2. LEFT FEMUR, TOTAL: Current: BMD 0.843 g/cm2, Z-score 0.0, T-score -1.3, osteopenia, 2.8% increase from previous, 1.4% decrease from baseline (<5% change is not significant). Prior: BMD 0.820 g/cm2. Baseline: BMD 0.855 g/cm2. IDENTIFIED RISK FACTORS: Menopause, osteoporosis, intestinal/bowel disease, secondary osteoporosis. HISTORY OF FRACTURE: None listed. MEDICATIONS: Calcium, vitamin D, bisphosphonate. MM/XR DEXA axial skeleton IMPRESSION: 1. DIAGNOSIS: Osteopenia based on the lowest T-score value of -2.4 in the femoral neck applying World Health Organization criteria. 2. 10-YEAR FRACTURE RISK PREDICTION, FRAX: Major osteoporotic fracture (clinical spine, forearm, hip or shoulder) 14.1%. Hip fracture 3.3%. 3. Treatment Recommendations: NOF guidelines recommend consideration for treatment in postmenopausal women and men age 50 and older presenting with the following: -A hip or vertebral (clinical or morphometric) fracture. -T-score less than or equal to -2.5 at the femoral neck or spine after appropriate evaluation to exclude secondary causes. -Low bone mass at the hip or spine and a 10-year fracture probability by FRAX of greater than or equal to 3% for hip fracture or greater than or equal to 20% for major osteoporotic fracture based on the [place] adapted WHO algorithm. 4. Other Recommendations: All treatment decisions require clinical judgment and consideration of individual patient factors, including patient preferences, comorbidities, previous drug use, risk factors not captured in the FRAX model (e.g. frailty, falls, vitamin D deficiency, increased bone turnover, interval significant decline in bone density) and possible under or overestimation of fracture risk by FRAX. Additional medical evaluation for secondary cause of low bone mineral density may be appropriate. FUTURE SCAN RECOMMENDATION: People with diagnosed cases of osteoporosis or at high risk for fracture should have regular bone mineral density tests. For patients eligible for Medicare, routine testing is allowed once every 2 years. The testing frequency can be increased to one year for patients who have rapidly progressing disease, those who are receiving or discontinuing medical therapy to restore bone mass, or have additional risk factors.
== END 2021-09-29 08:16 | disposition home or self-care (01) ==
LOC: HO.MAMMO 08:15
PROVIDERS: PCP Internal Medicine; Visit Provider Internal Medicine Endocrinology, Diabetes & Metabolism
DX: Z13.820 Encounter for screening for osteoporosis (principal); M81.0 Age-related osteoporosis without current pathological fracture; M85.80 Other specified disorders of bone density and structure, unspecified site; Z78.0 Asymptomatic menopausal state; Z79.899 Other long term (current) drug therapy
CPT/HCPCS: 77080

== ENCOUNTER → 2021-10-18 08:32 | Outpatient (BNVA) | payer OTHER, SELFPAY | PROVIDERS: PCP Internal Medicine; Referring Provider Internal Medicine; Visit Provider Internal Medicine Cardiovascular Disease ==

== ENCOUNTER → 2021-10-19 15:00 | Outpatient (BNVA) | payer OTHER, SELFPAY | PROVIDERS: PCP Internal Medicine; Visit Provider Surgery Vascular Surgery ==

== ENCOUNTER 2021-11-08 12:58 | Outpatient (REF) | payer OTHER, SELFPAY ==
--- NOTE | ~2021-11-08 | US_ITS ---
EXAMINATION: US LOWER EXTREMITY VENOUS (REFLUX EXAM), BILATERAL CLINICAL INDICATION: 71-year-old female with venous insufficiency and varicose veins. COMPARISON: None. TECHNIQUE: Color flow triplex imaging and compression Doppler was performed to evaluate both the deep and the superficial systems bilaterally. To evaluate the superficial system, the examination was performed in the upright position. Color-flow Doppler ultrasound and compression ultrasound were utilized. In addition, maneuvers were utilized to demonstrate reflux. FINDINGS: 1. DEEP VENOUS ULTRASOUND OF THE RIGHT LOWER EXTREMITY: Common Femoral Vein: The common femoral vein is compressible but demonstrates deep vein reflux with the reflux time of 1148 ms. Femoral vein: Compressible, normal color flow and augmentation. Popliteal Vein: Compressible, normal augmentation. Deep Reflux: There is isolated reflux in the common femoral vein not below this level. There is no evidence of a Matias's cyst. 2. SUPERFICIAL ULTRASOUND WITH DOPPLER OF RIGHT LOWER EXTREMITY: GREAT SAPHENOUS VEIN: Saphenofemoral Junction: 0.7 cm Mid Thigh: 0.4 cm Above Knee: 0.4 cm Below Knee: 0.3 cm Mid Calf: 0.2 cm Ankle: 0.2 cm GSV REFLUX: No evidence of reflux. DUPLICATED GREAT SAPHENOUS VEIN: There is a lateral duplicated great saphenous vein measuring 0.4 cm without reflux at the junction. SMALL SAPHENOUS VEIN: Proximal: 0.3 cm Distal: 0.3 cm SSV REFLUX: No evidence of reflux. VEIN OF GIACOMINI: None Imaged. PERFORATORS: There are 0.2 cm perforators without reflux in the knee and calf. VARICOSITIES: There are 0.3 and 0.4 cm, respectively, proximal thigh and distal thigh varicose veins without reflux. 3. DEEP VENOUS ULTRASOUND OF THE LEFT LOWER EXTREMITY: Common Femoral Vein: Compressible, normal respiratory variation and augmented flow. Femoral Vein: Compressible, normal color flow and augmentation. Popliteal Vein: Compressible, normal augmentation. Deep Reflux: There is no evidence of reflux in the deep system in either the common femoral vein or the popliteal vein. There is no evidence of a Matias's cyst. 4. SUPERFICIAL ULTRASOUND WITH DOPPLER OF LEFT LOWER EXTREMITY: GREAT SAPHENOUS VEIN: Saphenofemoral Junction: 0.9 cm Mid Thigh: 0.3 cm Above Knee: 0.4 cm Below Knee: 0.4 cm. There is no reflux at this level and above. Mid Calf: 0.3 cm. The reflux time is 1036 ms. Ankle: 0.3 cm GSV REFLUX: There is only isolated reflux in the mid calf. DUPLICATED GREAT SAPHENOUS VEIN: There is a lateral duplicated great saphenous vein measuring 0.7 cm without reflux. SMALL SAPHENOUS VEIN: Proximal: 0.4 cm Distal: 0.2 cm SSV REFLUX: No evidence of reflux. VEIN OF GIACOMINI: There is a 0.4 cm vein without reflux. PERFORATORS: There is a 0.2 cm proximal calf slat twister without reflux. VARICOSITIES: There are 0.4 cm and 0.5 cm, respectively, without reflux. US/US venous duplex LE BI IMPRESSION: 1. There are bilateral patent great saphenous veins and small saphenous veins without evidence of reflux at the junction. 2. There are bilateral varicose veins without reflux.
== END 2021-11-08 12:59 | disposition home or self-care (01) ==
LOC: HO.US 12:58
PROVIDERS: PCP Internal Medicine; Visit Provider Surgery Vascular Surgery
DX: I83.11 Varicose veins of right lower extremity with inflammation (principal)
CPT/HCPCS: 93970

== ENCOUNTER 2022-01-07 06:25 | Outpatient (REF) | payer OTHER, SELFPAY | END 2022-01-07 06:26 | disposition home or self-care (01) | LOC: HO.HMGCLDS 06:25 | PROVIDERS: PCP Internal Medicine; Visit Provider Internal Medicine Cardiovascular Disease | DX: Z13.89 Encounter for screening for other disorder (principal) ==

== ENCOUNTER 2022-01-08 08:12 | Outpatient (REF) | payer OTHER, SELFPAY ==
[2022-01-08 09:59] LABS: C Reactive Protein 0.26 mg/dL (< or = 0.50); Cholesterol 146 mg/dL; HDL Cholesterol 66 mg/dL; LDL Cholesterol Calculated 60 mg/dl; Triglycerides 100 mg/dL
[2022-01-10 19:06] LABS: CRP High Sensitivity 2.4 mg/L
[2022-01-11 15:26] LABS: Collagen Type I C-Telopeptide 177 pg/mL (see note)
== END 2022-01-08 08:13 | disposition home or self-care (01) ==
LOC: HO.LAB 08:12
PROVIDERS: Absent Provider Internal Medicine; PCP Internal Medicine; Visit Provider Internal Medicine Cardiovascular Disease
DX: M81.0 Age-related osteoporosis without current pathological fracture (principal); I10 Essential (primary) hypertension; R79.82 Elevated C-reactive protein (CRP); I25.10 Atherosclerotic heart disease of native coronary artery without angina pectoris; E78.5 Hyperlipidemia, unspecified
CPT/HCPCS: 36415; 80061; 82523; 86140; 86141

== ENCOUNTER 2022-03-22 14:56 | Outpatient (REF) | payer OTHER, SELFPAY ==
[2022-03-22 16:28] LABS: MANUAL DIFF FLAG NO
[2022-03-22 16:31] LABS: Basophils Absolute Auto 0.1 X10*3/uL (0.0-0.2); Basophils Percent Auto 0.8 % (0-2); Eosinophils Absolute Auto 0.1 X10*3/uL (0.0-0.4); Eosinophils Percent Auto 2.3 % (0-4); Hematocrit 43.1 % (37.0-47.0); Hemoglobin 14.1 g/dl (12.0-16.0); Imm Gran Abs Auto 0.01 X10*3/uL (0.00-0.03); Imm Gran Pct Auto 0.2 % (0.0-0.4); Lymphocytes Absolute Auto 2.6 X10*3/uL (1.2-4.9); Lymphocytes Percent Auto 42.6 % (20-40); Mean Corpuscular HGB Conc 32.7 g/dl (31.0-35.0); Mean Corpuscular Hemoglobin 30.8 pg (27.0-33.0); Mean Corpuscular Volume 94.1 fL (80.0-98.0); Mean Platelet Volume 11.3 fL (9.4-12.3); Monocytes Absolute Auto 0.7 X10*3/uL (0.1-1.2); Monocytes Percent Auto 11.6 % (2-11); Neutrophils Absolute Auto 2.6 x10*3/uL (2.0-8.3); Neutrophils Percent Auto 42.5 % (45-73); Platelet Count 250 X10*3/uL (160-400); Red Blood Count 4.58 X10*6/uL (4.20-5.50); Red Cell Distribution Width 12.6 % (11.0-16.0)
[2022-03-22 16:45] LABS: Iron 54 mcg/dL (30-160); Percent Iron Saturation 16 % (15-50); Total Iron Binding Capacity 338 mcg/dL (228-428); Unsaturated Iron Binding 284 ug/dL
[2022-03-22 17:08] LABS: Ferritin 123 ng/mL (10-250); Free T4 (Free Thyroxine) 0.91 ng/dL (0.71-1.85); Thyroid Stimulating Hormone 0.77 uIU/mL (0.32-4.0)
== END 2022-03-22 14:57 | disposition home or self-care (01) ==
LOC: HO.HMGCLDS 14:56
PROVIDERS: PCP Internal Medicine; Visit Provider Dermatology
DX: L65.0 Telogen effluvium (principal)
CPT/HCPCS: 36415; 82728; 83540; 84439; 84443; 85025

== ENCOUNTER 2022-05-17 10:30 | Emergency (ER) | payer OTHER, SELFPAY ==
--- NOTE | ~2022-05-17 | CT_ITS ---
EXAMINATION: CT HEAD WITHOUT CONTRAST CLINICAL INFORMATION: Dizziness. Head pain. COMPARISON: None. TECHNIQUE: Contiguous axial imaging was performed from the skull base to vertex without intravenous administration of contrast. Coronal and sagittal reformatted images are performed at the CT scanner. [This CT examination was performed using dose optimization techniques as appropriate, variously including the following: *Automated exposure control *Adjustment of mA and/or kV according to patient size (this includes techniques or standardized protocols for targeted exams where dose is matched to indication/reason for exam; i.e. extremities or head) *Use of iterative reconstruction technique] DLP: 716 mGy-cm. FINDINGS: There is no evidence of acute intracranial hemorrhage or territorial infarction. No abnormal mass-effect or midline shift is seen. Slaughter to white matter differentiation is well preserved. No extra-axial fluid collections are identified. The ventricles are normal in size. There is no abnormal attenuation within the brain parenchyma. There is no osseous abnormality. The mastoid air cells and visualized portions of the paranasal sinuses are well-aerated. CT/CT head/brain wo con IMPRESSION: No acute intracranial pathology.
[2022-05-17 10:41] VITALS: BP 146/71; PULSE 80; RESP 18; TEMP 36.5; O2SAT 96; BMI 27.8
[2022-05-17 10:56] LABS: MANUAL DIFF FLAG NO
[2022-05-17 11:00] LABS: Basophils Absolute Auto 0.1 X10*3/uL (0.0-0.2); Basophils Percent Auto 0.6 % (0-2); Eosinophils Absolute Auto 0.1 X10*3/uL (0.0-0.4); Hematocrit 43.8 % (37.0-47.0); Hemoglobin 14.8 g/dl (12.0-16.0); Imm Gran Abs Auto 0.03 X10*3/uL (0.00-0.03); Imm Gran Pct Auto 0.3 % (0.0-0.4); Lymphocytes Absolute Auto 2.6 X10*3/uL (1.2-4.9); Lymphocytes Percent Auto 29.7 % (20-40); Mean Corpuscular HGB Conc 33.8 g/dl (31.0-35.0); Mean Corpuscular Volume 91.8 fL (80.0-98.0); Mean Platelet Volume 10.3 fL (9.4-12.3); Monocytes Absolute Auto 0.7 X10*3/uL (0.1-1.2); Monocytes Percent Auto 8.2 % (2-11); Neutrophils Absolute Auto 5.2 x10*3/uL (2.0-8.3); Neutrophils Percent Auto 60.2 % (45-73); Platelet Count 245 X10*3/uL (160-400); Red Blood Count 4.77 X10*6/uL (4.20-5.50); Red Cell Distribution Width 12.4 % (11.0-16.0); White Blood Count 8.7 X10*3/uL (4.8-10.8)
[2022-05-17 11:12] LABS: Anion Gap 13 (12-20); Blood Urea Nitrogen 17 mg/dL (9-16); Calcium 9.3 mg/dL (8.4-10.2); Carbon Dioxide 26 mmol/L (22-29); Chloride 109 mmol/L (96-108); Creatinine Clr Calc Pharmacy 69.7; Estimated Glomerular Filt Rate > 60; Glucose Random 101 mg/dL (60-115); Potassium 4.8 mmol/L (3.3-5.1); Sodium 143 mmol/L (135-145)
[2022-05-17 13:32] LABS: Alanine Aminotransferase 24 U/L (0-31); Albumin Level 4.3 g/dL (3.5-5.0); Alkaline Phosphatase 67 U/L (39-117); Aspartate Amino Transferase 22 U/L (5-31); Bilirubin Direct 0.5 mg/dL (0.0-0.5); Bilirubin Total 1.3 mg/dL (0.0-1.0); C Reactive Protein 0.21 mg/dL (< or = 0.50)
[2022-05-17 13:52] LABS: TSH reflex Free T4 0.78 uIU/mL (0.32-4.0)
--- NOTE | 2022-05-17 14:21 | ED.HA ---
HPI - Headache General Chief Complaint: General Medical Stated Complaint: Headache Time Seen by Provider: 05/17/22 12:16 Source: patient Mode of arrival: ambulatory Limitations: no limitations History of Present Illness HPI Narrative: 71-year-old female with a past medical history of hypertension, breast cancer in 2015, GERD, anxiety and COVID-19 over a year ago presenting to the ED with complaints of a head pain that she describes as ?burning sensation? for the past year with associated dizziness, losing her hair and balance issues that has been persistent not worsening. She reports that she went to her primary care provider and she is very upset with her care due to she reports that she is not listening to her about her head pain in her balance issues and her hair loss. Therefore she tried to see 1 of the neurologists here at 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 Therefore she came here for referral to see a neurologist because she wants to know what is going on. She denies any temporal artery pain, fevers, neck pain/injury, recent falls or trauma, changes in vision, paresthesias, chest pain or shortness of breath, dyspnea on exertion, orthopnea, palpitations, nausea/vomiting/diarrhea, black or bloody stools, abdominal pain, flank pain, dysuria, rashes, recent travel or sick contacts, lower extremity edema or calf tenderness, recent CO2 exposure, recent tick bite, new medication, recent spinal/epidural procedure, others with similar symptoms or any other symptoms complaints or concerns at this time. MD elicited complaint: headache Onset (ago): year(s) (1) Onset description: gradually Location: generalized Severity: mild Quality & Timing: constant and other (She reports as burning sensation) Exacerbating factors: none Relieving factors: nothing Associated symptoms: other (hairloss and balance ) Treatments prior to arrival: none Related Data Previous Rx's Medication Instructions Recorded cholecalciferol (vitamin D3) 50 50 mcg PO DAILY #90 caps 05/27/21 mcg (2,000 unit) capsule rosuvastatin 40 mg tablet (Crestor) 40 mg PO DAILY #30 tabs 10/18/21 metoprolol succinate 50 mg 50 mg PO DAILY #90 tabs 01/19/22 tablet,extended release 24 hr aspirin 81 mg tablet,delayed 81 mg PO DAILY #30 tabs 05/02/22 release (Ecotrin Low Strength) Allergies Allergy/AdvReac Type Severity Reaction Status Date / Time adhesive Allergy Intermediate blisters Uncoded 01/24/22 08:12 From AUGMENTIN AdvReac Unknown INTOLERANCE Uncoded 01/24/22 08:12 From Augmentin AdvReac Unknown INTOLERANCE Uncoded 01/24/22 08:12 Review of Systems Review of Systems: Constitutional : No changes in activity, No lethargy, No recent prior head injury, No agitation, No increased fussiness ENT/Mouth : No Ear Pain, No Nasal discharge/drainage Eyes: No Eye Pain, No Swelling, No Redness, No Foreign Body, No Vision Changes Cardiovascular : No Chest Pain, No SOB Respiratory : No Cough Gastrointestinal : No Nausea, No Vomiting, No abdominal Pain Genitourinary : No Dysuria, No Urinary Frequency, No Urinary Incontinence, No Urgency, No Flank Pain Musculoskeletal : No joint pain, No neck stiffness, No back pain/injury Skin : No lacerations Neuro : No unsteady gait, No Paresthesias, No Loss of Consciousness, No altered mental status, No dizziness, + Headache/balance issues Endocrine: + Hair loss Denies past medical history of HIV, recent trauma, coagulopathy, recent spinal/ epidural procedure, new medication, URI symptoms, close contacts with similar symptoms, tick bite, or known CO2 exposure. Yes all other systems are reviewed and are negative PMFSH Past Medical History Attestation statement: The following information was validated with the patient. Source: old records reviewed and nursing notes reviewed Medical History GERD (gastroesophageal reflux disease) History of diverticulitis History of snoring Surgical History H/O esophagogastroduodenoscopy H/O left mastectomy H/O partial resection of colon H/O right mastectomy History of breast reconstruction Hx of carpal tunnel repair Hx of hammer toe correction Hx of varicose vein stripping Family History Family History Father Alzheimer's dementia Unknown family medical history Mother CVD (cardiovascular disease) Myocardial infarction Maternal Grandmother Diabetes mellitus Maternal Grandfather No problems noted. Paternal Grandfather No problems noted. Paternal Grandmother No problems noted. Daughter No problems noted. Daughter No problems noted. Brother Substance use disorder Brother No problems noted. Brother No problems noted. Brother No problems noted. Brother Myocardial infarction Brother Throat cancer Myocardial infarction Maternal Aunt Stomach cancer Sister Myocardial infarction Social History Social History Household Members Other:: lives alone, exercise occasionally Housing: House Alcohol intake: never Patient Tobacco Use Status: Former Tobacco user e-Cigarette/Vaping Use: Never Used Advance Directives: No Advance Directives Information Provided: Yes service: No Current occupational status: employed Physical Exam Vital Signs: Vital Signs: Last Vital Signs Temp 97.7 F 05/17/22 10:41 Pulse 80 05/17/22 10:41 Resp 18 05/17/22 10:41 BP 146/71 H 05/17/22 10:41 Pulse Ox 96 05/17/22 10:41 O2 Del Method 05/17/22 10:41 BMI result Body Mass Index 27.8 Vital signs have been reviewed as normal and appeared to be correct. Blood pressure 146/71. Heart rate normal. Respiration rate normal. Temperature normal. Oxygen saturation normal. Appearance: Alert. Oriented X3. No acute distress. Head: Normal external exam. Normocephalic. Atraumatic. Able to rotate head bilaterally. Eyes: PERRLA. EOMI. No nystagmus noted. Conjunctiva and sclera normal. Eyelids normal. Corneal reflex normal. ENT: EAC normal. TM's Normal. Hearing normal. Pharynx normal. Uvula midline. tongue midline. Moist mucous membranes. No trismus noted. No drooling noted. No muffled voice noted. Neck: Normal inspection. Neck supple. FROM. No adenopathy. Thyroid Normal. No meningeal signs. No neck mass noted. CVS: Normal heart rate and rhythm. Heart sound normal. No murmurs noted. Pulses normal throughout. Respiratory: No respiratory distress. Painless inspiration. Breath sounds normal. No wheezes/rales/rhonchi noted. Chest nontender. No accessory muscle usage noted or decreased air movement noted. Back: Full range of motion noted. Skin: Skin warm and dry. Normal skin color. Normal skin turgor. No rashes/lesions/lacerations noted. Extremities: Extremities exhibit normal range of motion. Extremities nontender. Able to shrug shoulders bilaterally and keep up against resistance. Neuro: Oriented X 3. No motor deficit. No sensory deficit. Reflexes normal. Moving all extremities. No focal motor deficits. Cranial nerves II-XI intact bilaterally. Facial strength normal. Normal cognition. Speech normal. Gait normal. Strength 5/5 throughout. No pronator drift. No tremor noted. No fasciculations noted. Muscle tone normal throughout. No asterixis noted. Course Course Course Narrative: - Patient afebrile, resting comfortably in no distress. Non-toxic appearing. Patient denies any recent trauma/injury to head. Neurological exam shows no deficits. BP WNL. Denies any changes in vision. Patient ambulates without difficulty. Given the history, and physical - most likely diagnosis: Migraine GOMEZ. Although patient reports she usually does not get migraine headaches therefore will obtain a CT scan of her brain. She also wants referral to Neurology I explained her I can give them their number but that is not an actual referral that her PCP would have to actually refer her to Neurology. SAH: unlikely given gradual onset and similar to previous episodes Intracranial bleed: unlikely given neg trauma, neg anticoagulation Meningitis: unlikely given pt afebrile, neg stiff neck, no immune compromise. Exam without signs of meningismus Temporal arteritis: Unlikely given Neg jaw claudication, no temporal tenderness or nodularity on exam. Cerebral venous thrombosis: unlikely given no h/o hypercoaguable state, no chronic head/neck infection. Reevaluation(s) Reevaluation #1: - CT negative therefore at this time will instruct patient to follow-up with her primary care provider for referral for Neurology. Patient understands agrees with this plan. Time: 15:41 [facility] - Headache Medical Records Attestation: I reviewed the patient's medical records. Lab Data Attestation: I reviewed the patient's lab results. Result diagrams: 05/17/22 10:51 05/17/22 10:51 Labs: Lab Results 05/17/22 05/17/22 05/17/22 Range/Units 10:51 10:51 10:51 WBC 8.7 (4.8-10.8) X10*3/uL RBC 4.77 (4.20-5.50) X10*6/uL Hgb 14.8 (12.0-16.0) g/dl Hct 43.8 (37.0-47.0) % MCV 91.8 (80.0-98.0) fL MCH 31.0 (27.0-33.0) pg MCHC 33.8 (31.0-35.0) g/dl RDW 12.4 (11.0-16.0) % Plt Count 245 (160-400) X10*3/uL MPV 10.3 (9.4-12.3) fL Immature Gran % (Auto) 0.3 (0.0-0.4) % Neut % (Auto) 60.2 (45-73) % Lymph % (Auto) 29.7 (20-40) % Lake % (Auto) 8.2 (2-11) % Eos % (Auto) 1.0 (0-4) % Baso % (Auto) 0.6 (0-2) % Lymph # (Auto) 2.6 (1.2-4.9) X10*3/uL Lake # (Auto) 0.7 (0.1-1.2) X10*3/uL Eos # (Auto) 0.1 (0.0-0.4) X10*3/uL Baso # (Auto) 0.1 (0.0-0.2) X10*3/uL Abs Immat Gran (auto) 0.03 (0.00-0.03) X10*3/uL Absolute Neuts (auto) 5.2 (2.0-8.3) x10*3/uL Absolute Nucleated RBC 0.000 (0.0-0.012) X10*3/uL Nucleated RBC % (auto) 0.0 (0.0-0.2) /100WBC ESR 9 (0-20) MM/HR Sodium 143 (135-145) mmol/L Potassium 4.8 (3.3-5.1) mmol/L Chloride 109 H (96-108) mmol/L Carbon Dioxide 26 (22-29) mmol/L Anion Gap 13 (12-20) BUN 17 H (9-16) mg/dL Creatinine 0.72 (0.5-1.4) mg/dL Estim Creat Clear Calc 69.7 Estimated GFR > 60 Random Glucose 101 (60-115) mg/dL Calcium 9.3 (8.4-10.2) mg/dL Total Bilirubin 1.3 H (0.0-1.0) mg/dL Direct Bilirubin 0.5 (0.0-0.5) mg/dL AST 22 (5-31) U/L ALT 24 (0-31) U/L Alkaline Phosphatase 67 (39-117) U/L C-Reactive Protein 0.21 (< or = 0.50) mg/dL Total Protein 7.0 (6.5-8.0) g/dL Albumin 4.3 (3.5-5.0) g/dL TSH 0.78 (0.32-4.0) uIU/mL Imaging Data CT scan of brain without contrast: Attestation: I personally reviewed and interpreted this imaging study as follows: Radiologist's impression: FINDINGS: There is no evidence of acute intracranial hemorrhage or territorial infarction. No abnormal mass-effect or midline shift is seen. Slaughter to white matter differentiation is well preserved. No extra-axial fluid collections are identified. The ventricles are normal in size. There is no abnormal attenuation within the brain parenchyma. There is no osseous abnormality. The mastoid air cells and visualized portions of the paranasal sinuses are well-aerated. ? CT/CT head/brain wo con IMPRESSION: No acute intracranial pathology. Discharge Plan Discharge Clinical Impression: Headache, migraine, Hair loss, Balance problem Patient Disposition: Home, Self-Care Instructions: Migraine Headache (ED), Alopecia (DC) Prescriptions: No Action cholecalciferol (vitamin D3) 50 mcg (2,000 unit) capsule 50 mcg PO DAILY Qty: 90 3RF metoprolol succinate 50 mg tablet extended release 24 hr 50 mg PO DAILY Qty: 90 3RF aspirin [Ecotrin Low Strength] 81 mg tablet,delayed release (DR/EC) 81 mg PO DAILY Qty: 30 5RF rosuvastatin [Crestor] 40 mg tablet 40 mg PO DAILY Qty: 30 5RF Referrals: Daisha Vivas MD [Primary Care Provider] - 1 week (Call tomorrow to make a follow-up appointment within 1 week)
[2022-05-17 14:58] LABS: Erythrocyte Sedimentation Rate 9 MM/HR (0-20)
== END 2022-05-17 15:49 | disposition home or self-care (01) ==
PROVIDERS: Physician Assistant Medical; Emergency Provider Emergency Medicine; PCP Internal Medicine
DX: G43.009 Migraine without aura, not intractable, without status migrainosus (principal); L65.9 Nonscarring hair loss, unspecified; R26.9 Unspecified abnormalities of gait and mobility; I10 Essential (primary) hypertension
CPT/HCPCS: 36415; 70450; 80048; 80076; 84443; 85025; 85652; 86140; 99282; 99284

== ENCOUNTER 2022-07-22 07:17 | Outpatient (REF) | payer OTHER, SELFPAY ==
--- NOTE | ~2022-07-22 | MR_ITS ---
MRI OF THE BRAIN WITHOUT IV CONTRAST INDICATION: Headaches. COMPARISON: Head CT 05/17/2022. TECHNIQUE: Multiplanar multisequence MR imaging of the brain was obtained without IV contrast. FINDINGS: There is no hydrocephalus, extra-axial surface collection, or herniation. There is global cerebral volume loss and there is mild chronic microangiopathy. The major flow voids at the skull base are preserved. There is no acute infarct on diffusion-weighted imaging. There is no intracranial hemorrhage on the gradient recalled echo acquisition. The midline structures are normal. The cerebellar tonsils are normally positioned. The cerebellum and brainstem are normal. The craniocervical junction is normal. Osseous marrow signal intensity is homogenous. The visualized soft tissues are unremarkable. MR/MR head/brain wo con IMPRESSION: - No acute intracranial findings. - There is global cerebral volume loss and there is mild chronic microangiopathy.
== END 2022-07-22 07:18 ==
LOC: HO.MRI 07:17
PROVIDERS: Visit Provider Internal Medicine
DX: R51.9 Headache, unspecified (principal); R29.818 Other symptoms and signs involving the nervous system; I99.8 Other disorder of circulatory system
CPT/HCPCS: 70551

== ENCOUNTER 2022-09-28 16:38 | Emergency (ER) | payer OTHER, SELFPAY ==
--- NOTE | ~2022-09-28 | XR_ITS ---
EXAMINATION: XR CHEST CLINICAL INFORMATION: Chest pain. COMPARISON: 07/10/2021 chest radiographs TECHNIQUE: Frontal view of the chest was obtained. FINDINGS: No significant abnormality is noted involving the heart, lungs, mediastinum, bony thorax or soft tissues. Surgical clips overlie the left lower chest. XR/XR chest 1V IMPRESSION: No acute cardiopulmonary process.
--- NOTE | 2022-09-28 16:40 | ECG_ITS ---
Test Reason : CHESTPAIN/QUESTION AFIB Blood Pressure : / mmHG Vent. Rate : 075 BPM Atrial Rate : 075 BPM P-R Int : 144 ms QRS Dur : 084 ms QT Int : 374 ms P-R-T Axes : 055 006 037 degrees QTc Int : 417 ms Normal sinus rhythm Normal ECG When compared with ECG of 10-JUL-2021 12:48, No significant change was found Referred By: Generic ED Physician Electronically Signed By:
[2022-09-28 17:22] LABS: Hematocrit 46.3 % (37.0-47.0); Hemoglobin 15.4 g/dl (12.0-16.0); Mean Corpuscular HGB Conc 33.3 g/dl (31.0-35.0); Mean Corpuscular Hemoglobin 30.6 pg (27.0-33.0); Mean Corpuscular Volume 91.9 fL (80.0-98.0); Mean Platelet Volume 10.2 fL (9.4-12.3); Platelet Count 284 X10*3/uL (160-400); Red Blood Count 5.04 X10*6/uL (4.20-5.50); Red Cell Distribution Width 12.6 % (11.0-16.0); White Blood Count 7.9 X10*3/uL (4.8-10.8)
[2022-09-28 17:34] LABS: Anion Gap 17 (12-20); Blood Urea Nitrogen 12 mg/dL (9-16); Calcium 10.1 mg/dL (8.4-10.2); Carbon Dioxide 26 mmol/L (22-29); Chloride 105 mmol/L (96-108); Estimated Glomerular Filt Rate > 60; Glucose Random 94 mg/dL (60-115); Potassium 4.7 mmol/L (3.3-5.1); Sodium 143 mmol/L (135-145)
[2022-09-28 17:41] LABS: Troponin-I High Sensitivity < 3.5 ng/L (<3.5-17.0)
[2022-09-28 17:50] VITALS: BP 172/73; PULSE 77; RESP 16; TEMP 36.4; O2SAT 98; BMI 27.6
--- NOTE | 2022-09-28 20:41 | ED_ITS ---
HPI - Chest Pain General Chief Complaint: Chest Pain Stated Complaint: chest pain, afib? Time Seen by Provider: 09/28/22 21:23 Related Data Home Medications Medication Instructions Recorded Confirmed multivitamin with minerals 1 tab PO DAILY 07/12/22 07/12/22 (Hair,Skin and Nails tablet) Previous Rx's Medication Instructions Recorded metoprolol succinate 50 mg 50 mg PO DAILY #90 tabs 01/19/22 tablet,extended release 24 hr aspirin 81 mg tablet,delayed 81 mg PO DAILY #30 tabs 05/02/22 release (Ecotrin Low Strength) rosuvastatin 40 mg tablet (Crestor) 40 mg PO DAILY 90 days #90 tabs 06/17/22 cholecalciferol (vitamin D3) 50 50 mcg PO DAILY #90 caps 08/10/22 mcg (2,000 unit) capsule Allergies Allergy/AdvReac Type Severity Reaction Status Date / Time adhesive Allergy Intermediate blisters Uncoded 09/28/22 17:55 From AUGMENTIN AdvReac Unknown INTOLERANCE Uncoded 09/28/22 17:55 From Augmentin AdvReac Unknown INTOLERANCE Uncoded 09/28/22 17:55 [facility] Past Medical History Medical History Abdominal pain Abdominal wall hernia Annual physical exam Anxiety CAD (coronary artery disease) GERD (gastroesophageal reflux disease) History of diverticulitis History of snoring HTN (hypertension) Hx of breast cancer Hyperlipidemia Osteoporosis Rectal pain Surgical History H/O esophagogastroduodenoscopy H/O left mastectomy H/O partial resection of colon H/O right mastectomy History of breast reconstruction Hx of carpal tunnel repair Hx of colonoscopy Hx of hammer toe correction Hx of varicose vein stripping Family History Family History Father Alzheimer's dementia Unknown family medical history Mother CVD (cardiovascular disease) Myocardial infarction Maternal Grandmother Diabetes mellitus Maternal Grandfather No problems noted. Paternal Grandfather No problems noted. Paternal Grandmother No problems noted. Daughter No problems noted. Daughter No problems noted. Brother Substance use disorder Brother No problems noted. Brother No problems noted. Brother No problems noted. Brother Myocardial infarction Brother Throat cancer Myocardial infarction Maternal Aunt Stomach cancer Sister Myocardial infarction Social History Social History Household Members Other:: lives alone, exercise occasionally Housing: House Alcohol intake: current Alcohol intake frequency: holidays/special occasions only Alcohol type: beer Patient Tobacco Use Status: Former Tobacco user Smoked in Last 30 Days: No e-Cigarette/Vaping Use: Never Used Use of substances other than those prescribed or required for medical reasons: No Advance Directives: No Advance Directives Information Provided: No service: No Current occupational status: employed Physical Exam Vital Signs: Vital Signs: Last Vital Signs Temp 98.0 F 09/28/22 22:25 Pulse 81 09/28/22 22:25 Resp 17 09/28/22 22:25 BP 129/72 09/28/22 22:25 Pulse Ox 97 09/28/22 22:25 O2 Del Method 09/28/22 22:25 BMI result Body Mass Index 27.6 Course Course Course Narrative: triage note TRACY: -CP started 5 days ago, intermittent, left side, lasts sharp quick pains -at this moment: anxious, tired, CP competely gone -no sob, c/o nausea, hx of CA in breast, mastectomy bilateral, hx of L breast CA -no syncope or dizziness -fit bit watch on weekend was 119, had palpitations -pt's labs are wnl, trop neg, second trop being check now 846pm, ekg wnl, sinus, EKG wnl discussed with pt so far labs wnl, trop #2 pendign PE: anxious, regular heart rate, ectopic beats present Medications Administered Discontinued Medications Generic Name Dose Route Start Last Admin Trade Name Geoffrey PRN Reason Stop Dose Admin Ketorolac Tromethamine 30 mg 09/28/22 21:39 09/28/22 22:42 Ketorolac Tromethamine 15 Mg/Ml Vial IM 09/28/22 21:40 30 mg ONCE ONE Administration Lorazepam 0.5 mg 09/28/22 22:02 09/28/22 22:42 Lorazepam 0.5 Mg Tablet PO 09/28/22 22:03 0.5 mg ONCE ONE Administration MDM - Chest Pain Lab Data Result diagrams: 09/28/22 17:10 11/09/22 17:10 Labs: Lab Results 09/28/22 09/28/22 09/28/22 Range/Units 17:10 17:10 17:10 WBC 7.9 (4.8-10.8) X10*3/uL RBC 5.04 (4.20-5.50) X10*6/uL Hgb 15.4 (12.0-16.0) g/dl Hct 46.3 (37.0-47.0) % MCV 91.9 (80.0-98.0) fL MCH 30.6 (27.0-33.0) pg MCHC 33.3 (31.0-35.0) g/dl RDW 12.6 (11.0-16.0) % Plt Count 284 (160-400) X10*3/uL MPV 10.2 (9.4-12.3) fL Absolute Nucleated RBC 0.000 (0.0-0.012) X10*3/uL Nucleated RBC % (auto) 0.0 (0.0-0.2) /100WBC PT 11.0 (10.0-13.1) SEC INR 1.0 (0.9-1.1) D-Dimer High Sensitivty < 150 NG/ML Sodium 143 (135-145) mmol/L Potassium 4.7 (3.3-5.1) mmol/L Chloride 105 (96-108) mmol/L Carbon Dioxide 26 (22-29) mmol/L Anion Gap 17 (12-20) BUN 12 (9-16) mg/dL Creatinine 0.73 (0.5-1.4) mg/dL Estim Creat Clear Calc TNP Estimated GFR > 60 Random Glucose 94 (60-115) mg/dL Calcium 10.1 D (8.4-10.2) mg/dL Troponin I High Sens (<3.5-17.0) ng/L B-Natriuretic Peptide (<100) pg/mL 09/28/22 09/28/22 09/28/22 Range/Units 17:10 20:48 20:48 WBC (4.8-10.8) X10*3/uL RBC (4.20-5.50) X10*6/uL Hgb (12.0-16.0) g/dl Hct (37.0-47.0) % MCV (80.0-98.0) fL MCH (27.0-33.0) pg MCHC (31.0-35.0) g/dl RDW (11.0-16.0) % Plt Count (160-400) X10*3/uL MPV (9.4-12.3) fL Absolute Nucleated RBC (0.0-0.012) X10*3/uL Nucleated RBC % (auto) (0.0-0.2) /100WBC PT (10.0-13.1) SEC INR (0.9-1.1) D-Dimer High Sensitivty NG/ML Sodium (135-145) mmol/L Potassium (3.3-5.1) mmol/L Chloride (96-108) mmol/L Carbon Dioxide (22-29) mmol/L Anion Gap (12-20) BUN (9-16) mg/dL Creatinine (0.5-1.4) mg/dL Estim Creat Clear Calc Estimated GFR Random Glucose (60-115) mg/dL Calcium (8.4-10.2) mg/dL Troponin I High Sens < 3.5 < 3.5 (<3.5-17.0) ng/L B-Natriuretic Peptide 18 (<100) pg/mL Discharge Plan Discharge Clinical Impression: Chest pain Patient Disposition: Home, Self-Care Instructions: Chest Pain (DC) Additional Instructions: Take your medications as prescribed. If you were prescribed antibiotics today, it is important that you take your medication to their entirety, do not skip any doses, do not finish them early. Follow-up with your primary care provider this week. Please follow-up with cardiology within the next week, information below. Return to the emergency department with new or worsening symptoms. Such as fevers, chills, chest pain, shortness of breath, nausea, vomiting, dizziness, headache, vision changes, lethargy, weakness In case of emergency call 911 XR/XR chest 1V IMPRESSION: No acute cardiopulmonary process. Your laboratory studies were reassuring, your COVID test was negative, your EKG also looked good. Prescriptions: No Action metoprolol succinate 50 mg tablet extended release 24 hr 50 mg PO DAILY Qty: 90 3RF aspirin [Ecotrin Low Strength] 81 mg tablet,delayed release (DR/EC) 81 mg PO DAILY Qty: 30 5RF rosuvastatin [Crestor] 40 mg tablet 40 mg PO DAILY 90 Days Qty: 90 3RF cholecalciferol (vitamin D3) 50 mcg (2,000 unit) capsule 50 mcg PO DAILY Qty: 90 3RF Hair,Skin and Nails Tablet 1 tab PO DAILY Referrals: [facility] Cardiovascular Services [Provider Group] - 2 days Daisha Vivas MD [Primary Care Provider] - 2 days Stand Alone Forms: Work/School Release Interventions: ED Discharge Assessment Last Done: 09/28/22 22:48 Discharge Date/Time: 09/28/22 22:48
[2022-09-28 21:18] VITALS: BP 139/68; RESP 16; TEMP 36.8; O2SAT 97
[2022-09-28 21:21] LABS: Troponin-I High Sensitivity < 3.5 ng/L (<3.5-17.0)
--- NOTE | 2022-09-28 21:34 | ED.CHESTPAIN ---
HPI - Chest Pain General Chief Complaint: Chest Pain Stated Complaint: chest pain, afib? Time Seen by Provider: 09/28/22 21:23 Source: patient Mode of arrival: ambulatory Limitations: no limitations History of Present Illness HPI narrative: This is a 71-year-old female past medical history significant for peripheral artery disease, coronary artery disease, Raynaud's disease, hyperlipidemia, iron deficiency, anxiety, hypertension, breast cancer status post mastectomy bilaterally presenting to the emergency department complaints of intermittent mild chest pain over the past 4 days. Patient tells me she has been intermittently experiencing some chest discomfort in the substernal region, describes it as a dull stabbing/aching pain, tells me the pain does not radiate, she tells me the pain is not at all debilitating but she feels like there is something wrong. She tells me that at times she experiences palpitations and feels like her heart is going an abnormal rhythm, she tells me she looked at her smart watch in notice that her heart rate was fluctuating between 80 and 119, at that time she was aware of palpitations. Reports that she has a moderately anxious person. At this time she tells me symptoms are not present however they are intermittent and last a few seconds. Unable to tell me what makes symptoms better or worse. Tells me she is followed by cardiology Dr. Cherry. Denies shortness of breath, nausea, vomiting, headache, vision changes, dizziness, fevers, chills, chest trauma, weakness. Related Data Home Medications Medication Instructions Recorded Confirmed multivitamin with minerals 1 tab PO DAILY 07/12/22 07/12/22 (Hair,Skin and Nails tablet) Previous Rx's Medication Instructions Recorded metoprolol succinate 50 mg 50 mg PO DAILY #90 tabs 01/19/22 tablet,extended release 24 hr aspirin 81 mg tablet,delayed 81 mg PO DAILY #30 tabs 05/02/22 release (Ecotrin Low Strength) rosuvastatin 40 mg tablet (Crestor) 40 mg PO DAILY 90 days #90 tabs 06/17/22 cholecalciferol (vitamin D3) 50 50 mcg PO DAILY #90 caps 08/10/22 mcg (2,000 unit) capsule Allergies Allergy/AdvReac Type Severity Reaction Status Date / Time adhesive Allergy Intermediate blisters Uncoded 09/28/22 17:55 From AUGMENTIN AdvReac Unknown INTOLERANCE Uncoded 09/28/22 17:55 From Augmentin AdvReac Unknown INTOLERANCE Uncoded 09/28/22 17:55 Review of Systems Review of Systems: Constitutional : No Weight loss, No Fever, No Chills, No Fatigue, No Malaise ENT/Mouth : No sore throat, No Rhinorrhea Eyes: No Eye Pain, No Swelling, No Redness Cardiovascular : No Chest Pain, No SOB, No Dyspnea on Exertion, No Orthopnea, No Edema, No Palpitations Respiratory : No Cough, No Sputum, No Wheezing Gastrointestinal : No Nausea, No Vomiting, No Diarrhea, No Constipation, No abdominal Pain, No Hematochezia, No Melena Genitourinary : No Dysuria, No Urinary Frequency, No Hematuria, Musculoskeletal : No joint pain, No Myalgias, No Joint Swelling Skin : No Skin Lesions, No rash Neuro : No Weakness, No Numbness, No Dizziness, No Headache Psych : No Anxiety/Panic, No Depression All other systems reviewed and are negative Yes all other systems are reviewed and are negative [facility] Past Medical History Attestation statement: The following information was validated with the patient. Source: old records reviewed and nursing notes reviewed Medical History Abdominal pain Abdominal wall hernia Annual physical exam Anxiety CAD (coronary artery disease) GERD (gastroesophageal reflux disease) History of diverticulitis History of snoring HTN (hypertension) Hx of breast cancer Hyperlipidemia Osteoporosis Rectal pain Surgical History H/O esophagogastroduodenoscopy H/O left mastectomy H/O partial resection of colon H/O right mastectomy History of breast reconstruction Hx of carpal tunnel repair Hx of colonoscopy Hx of hammer toe correction Hx of varicose vein stripping Family History Family History Father Alzheimer's dementia Unknown family medical history Mother CVD (cardiovascular disease) Myocardial infarction Maternal Grandmother Diabetes mellitus Maternal Grandfather No problems noted. Paternal Grandfather No problems noted. Paternal Grandmother No problems noted. Daughter No problems noted. Daughter No problems noted. Brother Substance use disorder Brother No problems noted. Brother No problems noted. Brother No problems noted. Brother Myocardial infarction Brother Throat cancer Myocardial infarction Maternal Aunt Stomach cancer Sister Myocardial infarction Social History Social History Household Members Other:: lives alone, exercise occasionally Housing: House Alcohol intake: current Alcohol intake frequency: holidays/special occasions only Alcohol type: beer Patient Tobacco Use Status: Former Tobacco user Smoked in Last 30 Days: No e-Cigarette/Vaping Use: Never Used Use of substances other than those prescribed or required for medical reasons: No Advance Directives: No Advance Directives Information Provided: No service: No Current occupational status: employed Physical Exam Vital Signs: Vital Signs: Last Vital Signs Temp 98.3 F 09/28/22 21:18 Pulse 77 09/28/22 17:50 Resp 76 H 09/28/22 21:18 BP 139/68 09/28/22 21:18 Pulse Ox 97 09/28/22 21:18 O2 Del Method 09/28/22 21:18 BMI result Body Mass Index 27.6 vss Appearance: Alert.? Oriented X3.? No acute distress.? Head: Normocephalic, atraumatic, no step-offs or deformities Eyes: Pupils equal, round and reactive to light.? CVS: Normal heart rate and rhythm.? Pulses normal.? Respiratory: No respiratory distress.? Breath sounds normal.? Abdomen: Soft and nontender.? No abdominal bruits. Skin: Skin warm and dry.? Normal skin color.? Normal skin turgor.? Extremities: No lower extremity edema.? No calf ttp, negative Donald bilaterally. 5/5 strength to bilateral upper and lower extremities Neuro: Oriented X 3.? No motor deficit.? No sensory deficit. CN 2-12 intact. Normal [id number], [id number], steady tandem gait. Normal coordination. Course Reevaluation(s) Reevaluation #1: CBC appears to be within normal limits. Chemistry with no acute electrolyte abnormalities intervention. Troponin negative x2, EKG nonischemic unlikely ACS. Chest x-ray with no acute findings. D-dimer pending. Time: 21:40 Reevaluation #2: D-dimer negative, unlikely ACS. Patient reports she is comfortable. Tells me she has not slept in a few days requesting something that may help her sleep tonight. Will give low-dose Ativan. At time I discussed results with patient patient tells me she feels well, pain free not having chest pain, shortness of breath. At this time patient will be discharged home advised to return with any new or worsening symptoms. Advised her to follow-up with cardiology, outlined worrisome signs and symptoms on discharge. At this time I feel comfortable discharge home with prompt PCP and cardiology follow-up. Time: 22:02 MDM - Chest Pain MDM Narrative Medical decision making narrative: 2114 71-year-old female presents with 4 days of intermittent chest pain, substernal, dull, nonradiating. Patient former smoker. Currently asymptomatic. Physical exam benign. No signs stable. Based off patient history and physical examination is likely dysrhythmia versus anxiety. Unlikely that this is ACS or PE however will rule out. History and physical examination not consistent with myocarditis, endocarditis, pericarditis, costochondritis or dissection. Plan at this time is labs, imaging as necessary. Medical Records Data Attestation: I reviewed the patient's medical records. Lab Data Attestation: I reviewed the patient's lab results. Result diagrams: 09/28/22 17:10 09/28/22 17:10 Labs: Lab Results 09/28/22 09/28/22 09/28/22 Range/Units 17:10 17:10 17:10 WBC 7.9 (4.8-10.8) X10*3/uL RBC 5.04 (4.20-5.50) X10*6/uL Hgb 15.4 (12.0-16.0) g/dl Hct 46.3 (37.0-47.0) % MCV 91.9 (80.0-98.0) fL MCH 30.6 (27.0-33.0) pg MCHC 33.3 (31.0-35.0) g/dl RDW 12.6 (11.0-16.0) % Plt Count 284 (160-400) X10*3/uL MPV 10.2 (9.4-12.3) fL Absolute Nucleated RBC 0.000 (0.0-0.012) X10*3/uL Nucleated RBC % (auto) 0.0 (0.0-0.2) /100WBC PT 11.0 (10.0-13.1) SEC INR 1.0 (0.9-1.1) D-Dimer High Sensitivty < 150 NG/ML Sodium 143 (135-145) mmol/L Potassium 4.7 (3.3-5.1) mmol/L Chloride 105 (96-108) mmol/L Carbon Dioxide 26 (22-29) mmol/L Anion Gap 17 (12-20) BUN 12 (9-16) mg/dL Creatinine 0.73 (0.5-1.4) mg/dL Estim Creat Clear Calc TNP Estimated GFR > 60 Random Glucose 94 (60-115) mg/dL Calcium 10.1 D (8.4-10.2) mg/dL Troponin I High Sens (<3.5-17.0) ng/L 09/28/22 09/28/22 Range/Units 17:10 20:48 WBC (4.8-10.8) X10*3/uL RBC (4.20-5.50) X10*6/uL Hgb (12.0-16.0) g/dl Hct (37.0-47.0) % MCV (80.0-98.0) fL MCH (27.0-33.0) pg MCHC (31.0-35.0) g/dl RDW (11.0-16.0) % Plt Count (160-400) X10*3/uL MPV (9.4-12.3) fL Absolute Nucleated RBC (0.0-0.012) X10*3/uL Nucleated RBC % (auto) (0.0-0.2) /100WBC PT (10.0-13.1) SEC INR (0.9-1.1) D-Dimer High Sensitivty NG/ML Sodium (135-145) mmol/L Potassium (3.3-5.1) mmol/L Chloride (96-108) mmol/L Carbon Dioxide (22-29) mmol/L Anion Gap (12-20) BUN (9-16) mg/dL Creatinine (0.5-1.4) mg/dL Estim Creat Clear Calc Estimated GFR Random Glucose (60-115) mg/dL Calcium (8.4-10.2) mg/dL Troponin I High Sens < 3.5 < 3.5 (<3.5-17.0) ng/L ECG Data ECG #1: Attestation: I personally reviewed and interpreted this ECG as follows: ECG interpretation date: 09/28/22 ECG interpretation time: 21:40 Prior ECG tracings: available for review Interpretation: Ventricular rate of 75, CO normal, QRS normal, QT/QTC normal. EKG with normal sinus rhythm no ST elevations or inversions concerning for ischemia. No significant changes when compared to EKG from June 2021. Critical Care Time Critical Care Time Critical Care Time: No Discharge Plan Discharge Clinical Impression: Chest pain Patient Disposition: Home, Self-Care Instructions: Chest Pain (DC) Additional Instructions: Take your medications as prescribed. If you were prescribed antibiotics today, it is important that you take your medication to their entirety, do not skip any doses, do not finish them early. Follow-up with your primary care provider this week. Please follow-up with cardiology within the next week, information below. Return to the emergency department with new or worsening symptoms. Such as fevers, chills, chest pain, shortness of breath, nausea, vomiting, dizziness, headache, vision changes, lethargy, weakness In case of emergency call 911 XR/XR chest 1V IMPRESSION: No acute cardiopulmonary process. Your laboratory studies were reassuring, your COVID test was negative, your EKG also looked good. Prescriptions: No Action metoprolol succinate 50 mg tablet extended release 24 hr 50 mg PO DAILY Qty: 90 3RF aspirin [Ecotrin Low Strength] 81 mg tablet,delayed release (DR/EC) 81 mg PO DAILY Qty: 30 5RF rosuvastatin [Crestor] 40 mg tablet 40 mg PO DAILY 90 Days Qty: 90 3RF cholecalciferol (vitamin D3) 50 mcg (2,000 unit) capsule 50 mcg PO DAILY Qty: 90 3RF Hair,Skin and Nails Tablet 1 tab PO DAILY Referrals: [facility] [place] Cardi[facility] Services [Provider Group] - 2 days Daisha Vivas MD [Primary Care Provider] - 2 days Stand Alone Forms: Work/School Release
[2022-09-28 21:55] LABS: D Dimer High Sensitivity < 150 NG/ML
[2022-09-28 22:13] LABS: B Type Natriuretic Peptide 18 pg/mL (<100)
[2022-09-28 22:25] VITALS: BP 129/72; PULSE 81; RESP 17; TEMP 36.7; O2SAT 97
[2022-09-28] MEDS: Ketorolac Tromethamine 15 MG/ML VIAL 30 MG IM (22:42)
[2022-09-28] MEDS: LORazepam 0.5 MG TABLET PO (22:42)
== END 2022-09-28 22:48 | disposition home or self-care (01) ==
PROVIDERS: Emergency Medicine; Physician Assistant; Emergency Provider Emergency Medicine; PCP Internal Medicine
DX: R07.89 Other chest pain (principal); I48.91 Unspecified atrial fibrillation; R06.02 Shortness of breath; F41.9 Anxiety disorder, unspecified; Z79.899 Other long term (current) drug therapy; Z87.891 Personal history of nicotine dependence
CPT/HCPCS: 36415; 71045; 80048; 83880; 84484; 85027; 85379; 85610; 93005; 96372; 99284; 99285; J1885

== ENCOUNTER 2022-12-31 08:53 | Outpatient (REF) | payer OTHER, SELFPAY ==
[2022-12-31 09:15] LABS: MANUAL DIFF FLAG NO
[2022-12-31 10:38] LABS: Basophils Absolute Auto 0.1 X10*3/uL (0.0-0.2); Basophils Percent Auto 0.8 % (0-2); Eosinophils Absolute Auto 0.2 X10*3/uL (0.0-0.4); Eosinophils Percent Auto 2.2 % (0-4); Hematocrit 45.6 % (37.0-47.0); Hemoglobin 14.7 g/dl (12.0-16.0); Imm Gran Abs Auto 0.02 X10*3/uL (0.00-0.03); Imm Gran Pct Auto 0.3 % (0.0-0.4); Lymphocytes Absolute Auto 2.3 X10*3/uL (1.2-4.9); Lymphocytes Percent Auto 32.1 % (20-40); Mean Corpuscular HGB Conc 32.2 g/dl (31.0-35.0); Mean Corpuscular Hemoglobin 30.1 pg (27.0-33.0); Mean Corpuscular Volume 93.3 fL (80.0-98.0); Mean Platelet Volume 10.5 fL (9.4-12.3); Monocytes Absolute Auto 0.7 X10*3/uL (0.1-1.2); Monocytes Percent Auto 8.9 % (2-11); Neutrophils Absolute Auto 4.1 x10*3/uL (2.0-8.3); Neutrophils Percent Auto 55.7 % (45-73); Platelet Count 312 X10*3/uL (160-400); Red Blood Count 4.89 X10*6/uL (4.20-5.50); Red Cell Distribution Width 12.3 % (11.0-16.0); White Blood Count 7.3 X10*3/uL (4.8-10.8)
[2022-12-31 11:13] LABS: Alanine Aminotransferase 26 U/L (0-31); Albumin Level 4.1 g/dL (3.5-5.0); Alkaline Phosphatase 58 U/L (39-117); Anion Gap 15 (12-20); Aspartate Amino Transferase 23 U/L (5-31); Bilirubin Total 1.4 mg/dL (0.0-1.0); Blood Urea Nitrogen 11 mg/dL (9-16); Calcium 9.4 mg/dL (8.4-10.2); Carbon Dioxide 26 mmol/L (22-29); Chloride 107 mmol/L (96-108); Cholesterol 143 mg/dL; Estimated Glomerular Filt Rate > 60; Glucose Random 91 mg/dL (60-115); HDL Cholesterol 61 mg/dL; LDL Cholesterol Calculated 60 mg/dl; Potassium 4.5 mmol/L (3.3-5.1); Sodium 143 mmol/L (135-145); Total Protein 6.4 g/dL (6.5-8.0); Triglycerides 114 mg/dL
== END 2022-12-31 08:54 | disposition home or self-care (01) ==
LOC: HO.LAB 08:53
PROVIDERS: PCP Internal Medicine; Visit Provider Internal Medicine
DX: E78.5 Hyperlipidemia, unspecified (principal); I10 Essential (primary) hypertension; I25.10 Atherosclerotic heart disease of native coronary artery without angina pectoris
CPT/HCPCS: 36415; 80053; 80061; 85025

== ENCOUNTER → 2023-03-20 14:45 | Outpatient (BNVA) | payer OTHER, SELFPAY | PROVIDERS: PCP Internal Medicine; Visit Provider Internal Medicine Gastroenterology | DX: Z13.89 Encounter for screening for other disorder (principal) ==

== ENCOUNTER 2023-04-03 14:01 | Outpatient (REF) | payer OTHER, SELFPAY ==
[2023-04-03 16:23] LABS: Free T4 (Free Thyroxine) 1.02 ng/dL (0.71-1.85); Thyroid Stimulating Hormone 0.82 uIU/mL (0.32-4.0)
== END 2023-04-03 14:02 | disposition home or self-care (01) ==
LOC: HO.LAB 14:01
PROVIDERS: PCP Internal Medicine; Visit Provider Internal Medicine
DX: E03.9 Hypothyroidism, unspecified (principal); K43.2 Incisional hernia without obstruction or gangrene; Z85.3 Personal history of malignant neoplasm of breast
CPT/HCPCS: 36415; 84439; 84443

== ENCOUNTER 2023-04-21 08:10 | Outpatient (REF) | payer OTHER, SELFPAY ==
--- NOTE | ~2023-04-21 | CT_ITS ---
EXAMINATION: CT ABDOMEN AND PELVIS WITHOUT CONTRAST CLINICAL INFORMATION: Incisional hernia without obstruction or gangrene COMPARISON: Previous CT of the abdomen and pelvis February 2021 TECHNIQUE: Multidetector volumetric imaging was performed from the superior aspect of the liver through the pubic symphysis. Sagittal and coronal reformatted images were obtained on the technologist's workstation. This CT examination was performed using dose optimization techniques as appropriate, variously including the following: *Automated exposure control *Adjustment of mA and/or kV according to patient size (this includes techniques or standardized protocols for targeted exams where dose is matched to indication/reason for exam; i.e. extremities or head) *Use of iterative reconstruction technique DLP: 480 mGy-cm FINDINGS: LUNG BASES: The visualized lung bases are clear. Surgical clips in the right lower breast LIVER, GALLBLADDER, AND BILIARY TREE: The liver is normal in size, shape, and attenuation. No focal hepatic lesion or biliary ductal dilatation is present. Small gallstone in the gallbladder. PANCREAS: Unremarkable. SPLEEN: Unremarkable. ADRENAL GLANDS: Unremarkable. KIDNEYS AND URETERS: The kidneys are normal in size, shape, and attenuation. No hydronephrosis, hydroureter, or calculi seen. No perinephric stranding. Bilateral renal peripelvic cysts, left greater than right. No imaging follow-up recommended. BLADDER: Unremarkable. GASTROINTESTINAL TRACT: Mild diverticulosis of the colon. The small and large bowel are otherwise unremarkable. The appendix is unremarkable. Question wall thickening of the proximal stomach. This is similar to previous exam 2020. ABDOMINAL WALL: Postsurgical changes to the anterior abdominal wall. There is diffuse anterior abdominal wall bulge. No incisional hernia is seen. There is a tiny umbilical hernia containing fat. LYMPH NODES: Normal. VASCULAR: Unremarkable. PELVIC VISCERA: Unremarkable. OSSEOUS STRUCTURES: Mild degenerative changes of the spine. Stable focus of increased sclerosis in the left superior pubic ramus near the pubic symphysis. CT/CT abdomen pelvis wo IV con IMPRESSION: Postsurgical changes to the anterior abdominal wall and mild diffuse bulge. No incisional hernia seen. Tiny umbilical hernia containing fat. Small gallstone in the gallbladder. Mild diverticulosis. Fleischner guidelines were followed.
== END 2023-04-21 08:11 | disposition home or self-care (01) ==
LOC: HO.CT 08:10
PROVIDERS: Visit Provider Surgery
DX: K42.9 Umbilical hernia without obstruction or gangrene (principal); K80.20 Calculus of gallbladder without cholecystitis without obstruction; K57.30 Diverticulosis of large intestine without perforation or abscess without bleeding; Z98.890 Other specified postprocedural states
CPT/HCPCS: 74176

== ENCOUNTER → 2023-04-27 13:57 | Outpatient (BNVA) | payer OTHER, SELFPAY | PROVIDERS: PCP Internal Medicine; Visit Provider Surgery ==

== ENCOUNTER 2023-06-08 15:01 | Outpatient (AMB) | payer OTHER, SELFPAY ==
--- NOTE | 2023-06-08 15:03 | MHC.OFFVIS ---
Intake Vital Signs 06/08/23 15:10 Height 5 ft 3 in Weight 158 lb 11.725 oz BMI 28.1 BP 126/62 Blood Pressure Location Lt brachial Position Sitting Intake Visit Reasons: Genetic test results *HERE* Intake Note: This patient presents for a follow-up assessment for genetic test results. Patient denies complaints at this time. 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 Accompanied by: Self / Same As Patient Allergies adhesive Allergy (Intermediate, Uncoded 06/08/23 15:03) blisters From AUGMENTIN Adverse Reaction (Unknown, Uncoded 06/08/23 15:03) INTOLERANCE From Augmentin Adverse Reaction (Unknown, Uncoded 06/08/23 15:03) INTOLERANCE Medication List - Last Reconciled 06/08/23 by Korey Perez MD aspirin (Ecotrin Low Strength) 81 mg PO DAILY 90 days cholecalciferol (vitamin D3) 50 mcg PO DAILY metoprolol succinate ER 50 mg PO DAILY multivitamin with minerals (Hair,Skin and Nails tablet) 1 tab PO DAILY rosuvastatin (Crestor) 40 mg PO DAILY 90 days sodium,potassium,mag sulfates 17.5-3.13-1.6 gram (Suprep Bowel Prep Kit) DILUTE; drink 1/2 at 6-8 pm and half at 11 PM- 1AM timolol maleate 0.5% 0 drps ophthalmic (eye) QAM HPI Genetic test results *HERE* HPI Details She is here for follow-up after genetic testing. She has a personal history of bilateral breast cancer. She denies any new complaints. [facility] Medical History Abdominal pain Abdominal wall bulge Abdominal wall hernia Annual physical exam Anxiety CAD (coronary artery disease) GERD (gastroesophageal reflux disease) History of diverticulitis History of snoring HTN (hypertension) Hx of breast cancer Hyperlipidemia Osteoporosis Rectal pain Surgical History H/O esophagogastroduodenoscopy H/O left mastectomy H/O partial resection of colon H/O right mastectomy History of breast reconstruction Hx of carpal tunnel repair Hx of colonoscopy Hx of hammer toe correction Hx of varicose vein stripping Family History Father Alzheimer's dementia Unknown family medical history Mother CVD (cardiovascular disease) Myocardial infarction Maternal Grandmother Diabetes mellitus Maternal Grandfather No problems noted. Paternal Grandfather No problems noted. Paternal Grandmother No problems noted. Daughter No problems noted. Daughter No problems noted. Brother Substance use disorder Brother No problems noted. Brother No problems noted. Brother No problems noted. Brother Myocardial infarction Brother Throat cancer Myocardial infarction Maternal Aunt Stomach cancer Sister Myocardial infarction Social History Household Members Other:: lives alone, exercise occasionally Housing: House Alcohol intake: current Alcohol intake frequency: holidays/special occasions only Alcohol type: beer Patient Tobacco Use Status: Former Tobacco user e-Cigarette/Vaping Use: Never Used service: No Current occupational status: employed Review of Systems Const Denies chills and Denies fever(s) Card Denies chest pain, Denies dyspnea and Denies dyspnea on exertion Resp Denies cough, Denies dyspnea and Denies dyspnea on exertion GI Denies hematochezia and Denies change in bowel habits Denies hematuria Musc Denies back pain and Denies limited range of motion Neuro Denies focal weakness and Denies convulsions Psych Denies depression and Denies mood swings Physical Exam Vital Signs: Last Vital Signs BP 126/62 06/08/23 15:10 BMI result Body Mass Index 28.1 Const General: comfortable and no acute distress Chest Other: Has bilateral mastectomies Resp Effort & Inspection: normal respiratory effort Assessment & Plan Assessment & Plan (1) Hx of breast cancer: Comment: bilateral mastectomy w/reconstruction/chemotherapy Code(s): Z85.3 - Personal history of malignant neoplasm of breast Plan: She had bilateral has cancers in the past. Her [employer] genetic testing did not reveal any significant mutation. I did tell her that she should continue with regular screening programs, including colonoscopies. She has had bilateral mastectomy so she is not a candidate for screening mammograms anymore. She can follow up on a p.r.n. basis. Coding Level of Care Code Est Pt Level 3 (87747) Diagnoses Hx of breast cancer Z85.3
[2023-06-08 15:10] VITALS: BP 126/62; BMI 28.1
== END 2023-06-08 15:25 | disposition home or self-care (01) ==
PROVIDERS: PCP Internal Medicine; Visit Provider Surgery
DX: Z85.3 Personal history of malignant neoplasm of breast (principal)
CPT/HCPCS: 99213

== ENCOUNTER → 2023-06-08 15:01 | Outpatient (BNVA) | payer OTHER, SELFPAY | PROVIDERS: PCP Internal Medicine; Visit Provider Surgery ==

== ENCOUNTER 2023-07-11 06:25 | Day surgery (SDC) | payer OTHER, SELFPAY ==
--- NOTE | 2023-07-10 17:37 | HO.ANESPROP2 ---
HPI - Anesthesia Eval Consult details Narrative: EGD,colonoscopy PMFSH Active Problems Active Problems: All Active Problems (Updated 04/27/23 @ 14:35 by Korey Perez MD) Abdominal wall bulge (Acute) Incisional hernia (Acute) Iron deficiency (Acute) Vitamin D deficiency (Acute) Headache (Acute) Hyperlipidemia (Acute) Varicose veins of right lower extremity with inflammation (Acute) CAD (coronary artery disease) (Acute) Raynauds disease (Acute) PAD (peripheral artery disease) (Acute) GERD (gastroesophageal reflux disease) (Acute) Paronychia (Acute) Osteoporosis (Acute) Hx of colonoscopy (Acute) Rectal pain (Acute) Anxiety (Acute) Abdominal wall hernia (Acute) HTN (hypertension) (Acute) Annual physical exam (Acute) Abdominal pain (Acute) Hx of breast cancer (Acute) Generalized headaches (Acute) Chest pain (Acute) Past Medical History Medical History Abdominal pain Abdominal wall bulge Abdominal wall hernia Annual physical exam Anxiety CAD (coronary artery disease) GERD (gastroesophageal reflux disease) History of diverticulitis History of snoring HTN (hypertension) Hx of breast cancer Hyperlipidemia Osteoporosis Rectal pain Family History Family History Father Alzheimer's dementia Unknown family medical history Mother CVD (cardiovascular disease) Myocardial infarction Maternal Grandmother Diabetes mellitus Maternal Grandfather No problems noted. Paternal Grandfather No problems noted. Paternal Grandmother No problems noted. Daughter No problems noted. Daughter No problems noted. Brother Substance use disorder Brother No problems noted. Brother No problems noted. Brother No problems noted. Brother Myocardial infarction Brother Throat cancer Myocardial infarction Maternal Aunt Stomach cancer Sister Myocardial infarction Family history of problems with anesthesia: No Surgical History Surgical History H/O esophagogastroduodenoscopy H/O left mastectomy H/O partial resection of colon H/O right mastectomy History of breast reconstruction Hx of carpal tunnel repair Hx of colonoscopy Hx of hammer toe correction Hx of varicose vein stripping History of Problems with Anesthesia: No Social History Social History Household Members Other:: lives alone, exercise occasionally Housing: House Are you a primary md do resident urgent care to a significant other at home: No Do you presently have visiting nurse or other home services: No Alcohol intake: current Alcohol intake frequency: a few times a month Alcohol type: beer Patient Tobacco Use Status: Former Tobacco user e-Cigarette/Vaping Use: Never Used Have you been hit, kicked, punched, or otherwise hurt by someone within the past year? If so, by whom?: No Are you DNR?: No Advance Directives: No Advance Directives Information Provided: Yes Recently lost weight without trying: No Eating poorly because of decreased appetite: No Nutrition Risks: No Nutritional Risk Patient : No service: No Current occupational status: employed Meds Allergies Allergy/AdvReac Type Severity Reaction Status Date / Time adhesive Allergy Intermediate blisters Uncoded 06/08/23 15:03 From AUGMENTIN AdvReac Unknown INTOLERANCE Uncoded 06/08/23 15:03 From Augmentin AdvReac Unknown INTOLERANCE Uncoded 06/08/23 15:03 Home Medications Medication Instructions Recorded Confirmed Last Taken Type multivitamin with minerals 1 tab PO DAILY 07/12/22 06/08/23 Unknown History (Hair,Skin and Nails tablet) timolol maleate 0.5 % eye drops 0 drp ophthalmic (eye) QAM 10/20/22 06/08/23 Unknown History Exam Exam Date and Time: July 10, [id number] Airway Mallampati Class: II TM Dist: >3cm Heart: rrr Lungs: cta Assessment and Plan Assessment Anesthesia Assessment: Anesthesia Plan Discussed Final Anesthetic Review Family History of Problems with Anesthesia: No History of Problems with Anesthesia: No NPO: Yes ASA Class: II Final Preanesthetic Review: No Changes in Pt Med Stat, Meds/Allgs Chart Reviewed, Consent Obtained/Reviewed and Anes Risks/Benef Reviewed Patient Risk: Intermediate Procedure Risk: Intermediate Anesthetic Plan Anesthetic Plan: MAC: and Agree w/ Assess. and Plan Disposition: Standard PACU
--- NOTE | 2023-07-11 06:29 | MHC.SHP ---
Pre-Procedural Eval Section A Date of Service: 07/11/23 Section B Chief Complaint: GERD, abn bowel habit Relevant Family History (Specify if Yes): No Relevant Social History: None Present Medications: see Short Stay Collaborative assessment Medical History: Significant History (Abdominal pain Abdominal wall hernia Anxiety CAD (coronary artery disease) GERD (gastroesophageal reflux disease) History of diverticulitis History of snoring HTN (hypertension) Hx of breast cancer Hyperlipidemia Osteoporosis Rectal pain) History of Previous Operations: Relevant previous surgery/procedure and date(s) (H/O esophagogastroduodenoscopy H/O left mastectomy H/O partial resection of colon H/O right mastectomy History of breast reconstruction Hx of carpal tunnel repair Hx of colonoscopy Hx of hammer toe correction Hx of varicose vein stripping) Allergies: Allergies Allergy/AdvReac Type Severity Reaction Status Date / Time adhesive Allergy Intermediate blisters Uncoded 06/08/23 15:03 From AUGMENTIN AdvReac Unknown INTOLERANCE Uncoded 06/08/23 15:03 From Augmentin AdvReac Unknown INTOLERANCE Uncoded 06/08/23 15:03 Review of Systems Sugical H&P ROS: Negative: Constitution, Cardiovascular, Respiratory, Neurological, Psychiatric, Hem-Onc, Allergic/Immunologic, Gastrointestinal, Genitourinary, Musculoskeletal, Integumentary, Endocrine and Eyes/Ears/Nose/Throat Exam Surgical H&P Exam: Normal: HEENT, Normal: Heart, Normal: Lungs, Normal: Extremities, Normal: Abdomen, Normal: Skin and Normal: Neurological Plan Diagnosis/Plan: Unchanged I have reviewed the history and physical and performed a pertinent physical examination on my patient. No changes have occurred unless specified. Time Spent With Patient Time: Total time managing care of this patient today ____ minutes.
[2023-07-11 07:12] VITALS: BMI 28.3
[2023-07-11 07:18] VITALS: BP 139/73; PULSE 86; RESP 18; TEMP 36.7; O2SAT 97
--- NOTE | 2023-07-11 07:43 | P.OP_ITS ---
Operative Note Operative Note Date of Service: 07/11/23 Narrative: Operative Information Procedure Description: EGD, Colonoscopy Indication: GERD, abn bowel habit Anesthesia: MAC FLEXIBLE TRANSORAL UPPER GASTROINTESTINAL ENDOSCOPY AND COLONOSCOPY PROCEDURE NOTE UPPER ENDOSCOPY Consent: Indications for the procedure and potential complications of bleeding, perforation, reaction to medications and missed diagnosis were discussed with the patient and informed consent was obtained. Instrument: Olympus GIF H 190 J mid size upper endoscope Monitoring: Vital signs and clinical assessment, continuous EKG monitoring, Pulse oximetry, Carbon Dioxide monitoring and blood pressure monitoring were done throughout the procedure. Procedure: The patient was placed in the left lateral decubitis position and pre-procedure medications were administered and a bite block was placed. The endoscope was inserted into the mouth and advanced under direct vision to the third part of duodenum. A careful inspection was made as the upper endoscope was withdrawn including a retroflexed examination of the proximal stomach; Findings and interventions are described below. Findings: Larynx:normal Esophagus: GE junction at 35 cm, diaphragm hiatus at 35 cm, some bogginess and congestion at GEJ, bx taken from here and from distal and proximal esophagus Stomach: Normal mucosa. Biopsies were obtained. Grade 2 flap valve on retroflexed examination of the cardia. Duodenum: Normal bulb and descending duodenum, bx taken Intervention: Biopsies as noted above COLONOSCOPY Instrument: Olympus variable stiffness pediatric scope 190L Colonoscopy Monitoring: Vital signs and clinical assessment, continuous EKG monitoring, Pulse oximetry, Carbon Dioxide monitoring and blood pressure monitoring were done throughout the procedure. Colon withdrawal time was 7 minutes. Procedure: The patient was placed in the left lateral decubitis position and pre-procedure medications were administered. After a digital rectal examination of the ano-rectum, the video colonoscope was inserted into the rectum and advanced through the colon to the cecum/TI. The colonoscope was slowly withdrawn in a retrograde panoramic fashion and the colon mucosa was carefully examined including a retroflexed view of the rectum. Findings and interventions are described below. Procedure Difficulty: Findings: Terminal Ileum-normal Celis diverticulosis noted, with varying sizes of tics, otherwise normal as below Cecum:normal Ascending Colon: normal Transverse Colon -normal Descending Colon:normal Sigmoid Colon: normal Rectum: Retroflexion with moderate sized internal hemorrhoids, grade I Anorectum - normal Colon preparation: [place] Bowel Preparation Scale Right colon; 2 Transverse colon: 3 Left colon; 3 (0 = Unprepared colon segment with mucosa not seen due to solid stool that cannot be cleared. 1 = Portion of mucosa of the colon segment seen, but other areas of the colon segment not well seen due to staining, residual stool and/or opaque liquid. 2 = Minor amount of residual staining, small fragments of stool and/or opaque liquid, but mucosa of colon segment seen well. 3 = Entire mucosa of colon segment seen well with no residual staining, small fragments of stool or opaque liquid) Impression and Post Procedure Diagnosis: Endoscopy Findings: mild esophagitis Colonoscopy Findings: internal hemorrhoids diverticular disease Plan: Await Pathology results Repeat Colonoscopy in 10 years if health allows or earlier if clinically indicated High fiber diet leaflet avoid straining at stool, epsom salts and sitz bath, anusol supps or cream consider trial of PPi Above findings were reviewed with the patient and relevant handouts were provided if indicated.
[2023-07-11 08:17] VITALS: BP 92/54; PULSE 66; RESP 16; TEMP 36.4; O2SAT 93
[2023-07-11 08:32] VITALS: BP 110/61; PULSE 78; RESP 16; O2SAT 97
[2023-07-11 08:47] VITALS: BP 119/71; PULSE 81; RESP 16; TEMP 36.4; O2SAT 97
== END 2023-07-11 09:35 | disposition home or self-care (01) ==
PROVIDERS: PCP Internal Medicine; Visit Provider Internal Medicine Gastroenterology
PROC: (CPT 45378; principal; 2023-07-11 07:30)
DX: K44.9 Diaphragmatic hernia without obstruction or gangrene (principal); K20.80 Other esophagitis without bleeding; K21.9 Gastro-esophageal reflux disease without esophagitis; K64.0 First degree hemorrhoids; K57.30 Diverticulosis of large intestine without perforation or abscess without bleeding; R19.4 Change in bowel habit; K43.2 Incisional hernia without obstruction or gangrene; E61.1 Iron deficiency; I10 Essential (primary) hypertension; E78.5 Hyperlipidemia, unspecified; I25.10 Atherosclerotic heart disease of native coronary artery without angina pectoris; Z85.3 Personal history of malignant neoplasm of breast; Z87.891 Personal history of nicotine dependence; Z90.49 Acquired absence of other specified parts of digestive tract; Z79.899 Other long term (current) drug therapy; Z79.82 Long term (current) use of aspirin; Z88.1 Allergy status to other antibiotic agents; Z91.041 Radiographic dye allergy status
CPT/HCPCS: 45378; 43239; 88305; 88342

== ENCOUNTER → 2023-07-11 06:25 | Outpatient (BNV) | payer OTHER, SELFPAY | PROVIDERS: PCP Internal Medicine; Visit Provider Internal Medicine Gastroenterology | DX: K21.9 Gastro-esophageal reflux disease without esophagitis (principal); R19.4 Change in bowel habit; K64.0 First degree hemorrhoids; K57.30 Diverticulosis of large intestine without perforation or abscess without bleeding | CPT/HCPCS: 43239; 45378 ==

== ENCOUNTER 2023-10-03 14:51 | Outpatient (REF) | payer OTHER, SELFPAY ==
--- NOTE | ~2023-10-03 | MM_ITS ---
EXAMINATION: BONE DENSITOMETRY CLINICAL INDICATION: Encounter for screening for osteoporosis. Age-related osteoporosis without current pathological fracture. COMPARISON: Previous BD dated 09/29/2021 and baseline BD dated 10/13/2009. TECHNIQUE: Using a BitAccess DXA System (software version: 13.1) manufactured by [employer], dual-energy x-ray absorptiometry was performed of the lumbar spine and left hip. The images are of good technical quality. Summary results are attached. FINDINGS: LEFT FEMUR, NECK: Current: BMD 0.761 g/cm2, Z-score -0.5, T-score -2.0, osteopenia. Prior: BMD 0.698 g/cm2. Baseline: BMD 0.773 g/cm2. LEFT FEMUR, TOTAL: Current: BMD 0.853 g/cm2, Z-score 0.0, T-score -1.2, osteopenia, 1.2% increase from previous, 0.2% decrease from baseline (<5% change is not significant). Prior: BMD 0.843 g/cm2. Baseline: BMD 0.855 g/cm2. AP SPINE L1-L4: Current: BMD 1.015 g/cm2, Z-score 0.0, T-score -1.4, osteopenia, 0.3% increase from previous, 5.4% decrease from baseline (<5% change is not significant). Prior: BMD 1.012 g/cm2. Baseline: BMD 1.073 g/cm2. IDENTIFIED RISK FACTORS: Menopause, osteoporosis. HISTORY OF FRACTURE: None listed. MEDICATIONS: Multivitamin, vitamin D. MM/XR DEXA axial skeleton IMPRESSION: 1. DIAGNOSIS: Osteopenia based on the lowest T-score value of -2.0 in the femoral neck applying World Health Organization criteria. 2. 10-YEAR FRACTURE RISK PREDICTION, FRAX: Major osteoporotic fracture (clinical spine, forearm, hip or shoulder) 11.8%. Hip fracture 2.4%. 3. Treatment Recommendations: NOF guidelines recommend consideration for treatment in postmenopausal women and men age 50 and older presenting with the following: -A hip or vertebral (clinical or morphometric) fracture. -T-score less than or equal to -2.5 at the femoral neck or spine after appropriate evaluation to exclude secondary causes. -Low bone mass at the hip or spine and a 10-year fracture probability by FRAX of greater than or equal to 3% for hip fracture or greater than or equal to 20% for major osteoporotic fracture based on the [place] adapted WHO algorithm. 4. Other Recommendations: All treatment decisions require clinical judgment and consideration of individual patient factors, including patient preferences, comorbidities, previous drug use, risk factors not captured in the FRAX model (e.g. frailty, falls, vitamin D deficiency, increased bone turnover, interval significant decline in bone density) and possible under or overestimation of fracture risk by FRAX. Additional medical evaluation for secondary cause of low bone mineral density may be appropriate. FUTURE SCAN RECOMMENDATION: People with diagnosed cases of osteoporosis or at high risk for fracture should have regular bone mineral density tests. For patients eligible for Medicare, routine testing is allowed once every 2 years. The testing frequency can be increased to one year for patients who have rapidly progressing disease, those who are receiving or discontinuing medical therapy to restore bone mass, or have additional risk factors.
== END 2023-10-03 14:52 | disposition home or self-care (01) ==
LOC: HO.MAMMO 14:51
PROVIDERS: PCP Internal Medicine; Visit Provider Internal Medicine
DX: Z13.820 Encounter for screening for osteoporosis (principal); Z78.0 Asymptomatic menopausal state; M81.0 Age-related osteoporosis without current pathological fracture
CPT/HCPCS: 77080

== ENCOUNTER 2023-10-03 15:49 | Outpatient (REF) | payer OTHER, SELFPAY ==
[2023-10-03 16:40] LABS: MANUAL DIFF FLAG NO
[2023-10-03 17:09] LABS: Basophils Absolute Auto 0.1 X10*3/uL (0.0-0.2); Eosinophils Absolute Auto 0.2 X10*3/uL (0.0-0.4); Eosinophils Percent Auto 2.9 % (0-4); Hematocrit 44.2 % (37.0-47.0); Hemoglobin 14.5 g/dl (12.0-16.0); Imm Gran Abs Auto 0.01 X10*3/uL (0.00-0.03); Imm Gran Pct Auto 0.1 % (0.0-0.4); Lymphocytes Absolute Auto 3.1 X10*3/uL (1.2-4.9); Lymphocytes Percent Auto 44.9 % (20-40); Mean Corpuscular HGB Conc 32.8 g/dl (31.0-35.0); Mean Corpuscular Hemoglobin 30.9 pg (27.0-33.0); Mean Corpuscular Volume 94.2 fL (80.0-98.0); Monocytes Absolute Auto 0.8 X10*3/uL (0.1-1.2); Neutrophils Absolute Auto 2.7 x10*3/uL (2.0-8.3); Neutrophils Percent Auto 40.1 % (45-73); Platelet Count 237 X10*3/uL (160-400); Red Blood Count 4.69 X10*6/uL (4.20-5.50); Red Cell Distribution Width 12.7 % (11.0-16.0); White Blood Count 6.8 X10*3/uL (4.8-10.8)
[2023-10-03 17:33] LABS: Alanine Aminotransferase 25 U/L (0-31); Anion Gap 11 (12-20); Aspartate Amino Transferase 24 U/L (5-31); Blood Urea Nitrogen 16 mg/dL (9-16); C Reactive Protein 0.23 mg/dL (< or = 0.50); Calcium 9.5 mg/dL (8.4-10.2); Carbon Dioxide 29 mmol/L (22-29); Chloride 108 mmol/L (96-108); Estimated Glomerular Filt Rate > 60; Glucose Random 106 mg/dL (60-115); Rheumatoid Factor < 13.0 IU/mL (<15.0); Sodium 144 mmol/L (135-145)
[2023-10-03 17:56] LABS: Vitamin B12 833 pg/mL (200-900)
[2023-10-03 17:57] LABS: Thyroid Stimulating Hormone 0.69 uIU/mL (0.32-4.0); Vitamin D 25-OH Total 63.8 ng/mL (>30)
[2023-10-03 18:05] LABS: Free T4 (Free Thyroxine) 0.89 ng/dL (0.71-1.85)
[2023-10-05 01:14] LABS: DHEA Sulfate 28 mcg/dL (9-118)
[2023-10-05 02:13] LABS: Lyme Abs Screen <0.90 index
[2023-10-07 15:23] LABS: Testosterone, Total 23 ng/dL (2-45)
[2023-10-10 22:59] LABS: A phagocytophilum IgG <1:64 (<1:64); A phagocytophilum IgM <1:20 (<1:20); Babesia duncani Ab IgG (WA1) <1:256; Babesia microti IgG <1:64 titer (<1:64); Babesia microti IgM <1:20 titer (<1:20); E chaffeensis IgG <1:64 (<1:64); E chaffeensis IgM <1:20 (<1:20); Lyme Ab Screen <0.90 index
== END 2023-10-03 15:50 | disposition home or self-care (01) ==
LOC: HO.LAB 15:49
PROVIDERS: PCP Internal Medicine; Visit Provider Nurse Practitioner Primary Care
DX: R53.83 Other fatigue (principal); L65.9 Nonscarring hair loss, unspecified; E55.9 Vitamin D deficiency, unspecified
CPT/HCPCS: 36415; 80048; 82306; 82607; 82627; 84403; 84439; 84443; 84450; 84460; 85025; 86140; 86431; 86617; 86618; 86666; 86753

== ENCOUNTER 2023-10-26 08:17 | Outpatient (AMB) | payer OTHER, SELFPAY ==
--- NOTE | 2023-10-26 08:29 | A.OFFVIS_ITS ---
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: No Accompanied by: Self / Same As Patient Allergies adhesive Allergy (Intermediate, Uncoded 06/08/23 15:03) blisters From AUGMENTIN Adverse Reaction (Unknown, Uncoded 06/08/23 15:03) INTOLERANCE From Augmentin Adverse Reaction (Unknown, Uncoded 06/08/23 15:03) INTOLERANCE Medication List - Last Reconciled 10/26/23 by Sal Cherry MD aspirin (Ecotrin Low Strength) 81 mg PO DAILY 90 days cholecalciferol (vitamin D3) 50 mcg PO DAILY metoprolol succinate ER 50 mg PO DAILY multivitamin with minerals (Hair,Skin and Nails tablet) 1 tab PO DAILY rosuvastatin (Crestor) 40 mg PO DAILY 90 days timolol maleate 0.5% 0 drps ophthalmic (eye) QAM HPI HPI Comments History of Present Illness Details Candice comes for follow-up. She continues to precordial chest discomfort when she is active and after that feels tired. Symptoms last for few minutes. She is very concerned about it. She also complains of symptoms of palpitations, usually feeling of rapid heart rate usually when she is resting 1 to 2 times a week without any obvious triggering factors. Symptoms can last for 5-10 minutes. No associated symptoms of lightheadedness, syncope. No exertional shortness of breath, orthopnea, PND, leg edema. [facility] Medical History Abdominal wall bulge Hyperlipidemia CAD (coronary artery disease) Osteoporosis Rectal pain Anxiety Abdominal wall hernia Annual physical exam Abdominal pain Hx of breast cancer History of diverticulitis GERD (gastroesophageal reflux disease) History of snoring HTN (hypertension) Surgical History History of breast reconstruction H/O right mastectomy H/O left mastectomy Hx of varicose vein stripping Hx of carpal tunnel repair Hx of hammer toe correction H/O partial resection of colon H/O esophagogastroduodenoscopy Hx of colonoscopy Family History Father Alzheimer's dementia Unknown family medical history Mother CVD (cardiovascular disease) Myocardial infarction Maternal Grandmother Diabetes mellitus Maternal Grandfather No problems noted. Paternal Grandfather No problems noted. Paternal Grandmother No problems noted. Daughter No problems noted. Daughter No problems noted. Brother Substance use disorder Brother No problems noted. Brother No problems noted. Brother No problems noted. Brother Myocardial infarction Brother Throat cancer Myocardial infarction Maternal Aunt Stomach cancer Sister Myocardial infarction Social History Household Members Other:: lives alone, exercise occasionally Housing: House Are you a primary resident care assistant to a significant other at home: No Do you presently have visiting nurse or other home services: No Alcohol intake: current Alcohol intake frequency: a few times a month Alcohol type: beer Patient Tobacco Use Status: Former Tobacco user e-Cigarette/Vaping Use: Never Used service: No Current occupational status: employed Review of Systems Const Reports chills, Reports fatigue, Reports fever(s), Reports frequent falls, Reports weakness, Reports weight gain and Reports weight loss ENT Reports dizziness Card Reports chest pain, Reports leg edema, Reports lightheadedness, Reports palpitat ions, Reports dyspnea and Reports dyspnea on exertion Resp Reports cough, Reports dyspnea and Reports dyspnea on exertion GI Reports hematochezia Musc Reports abnormal gait, Reports muscle weakness, Reports numbness, Reports radiating pain into limb and Reports tingling Neuro Reports abnormal gait, Reports dizziness, Reports frequent falls, Reports numbness, Reports tingling and Reports weakness Endo Reports fatigue and Reports palpitations Physical Exam Vital Signs: Last Vital Signs Pulse 74 10/26/23 08:30 BP 130/70 10/26/23 08:30 BMI result Body Mass Index 28.9 Const General: no acute distress HEENT Head: Yes normal to inspection Ears: hearing grossly normal bilaterally Eyes General: appearance normal, both eyes and all related structures Neck Neck: Yes no lymphadenopathy Resp Effort & Inspection: normal respiratory effort Auscultation: clear to auscultation bilaterally Cardio Rhythm: regular rhythm Heart sounds: S1 normal heart sound present and S2 normal heart sound present GI Other: LLQ discomfort and slight fullness, no rebound Inspection: Yes normal to inspection Palpation (GI): Soft to palpation and No hepatosplenomegaly present Auscultation: normal bowel sounds Rectal Exam - Female: deferred Skin General skin exam: no rashes or lesions noted Extrem General: Yes no clubbing, cyanosis or edema Office Procedures EKG Details: EKG shows normal sinus rhythm with normal EKG [id number], Complete Assessment & Plan Assessment & Plan (1) CAD (coronary artery disease): Code(s): I25.10 - Atherosclerotic heart disease of [place] coronary artery without angina pectoris Plan: Patient with persistent exertional precordial chest pain when she is active. Symptoms are atypical as an not always present. She also not been exercising much. She has nonobstructive CAD by prior coronary CTA. Will suggest to treadmill stress test given her baseline normal EKG to assess for myocardial ischemia. If this is within normal limits at good workload likelihood of progressive coronary disease extremely low. This was discussed with her. Continue low-dose aspirin therapy. Continue statin therapy. Last LDL 60 mg/dL which is well optimized. Advised to monitor lipids on annual basis. (2) HTN (hypertension): Code(s): I10 - Essential (primary) hypertension Plan: Priors history of hypertension which is currently well optimized on metoprolol therapy. Continue the same. Importance of good blood pressure control was discussed. Low-salt diet was discussed encouraged to increase activity level and participate in regular physical activity and exercise program. Having symptoms of palpitations which are sporadic but happening a most once or twice a week. Will suggest a cardiac event monitor. Follow up in the clinic 1 year's time, sooner p.r.n.. Thank you for allowing me to partake in the care Coding Level of Care Code Est Pt Level 4 (71896) Diagnoses CAD (coronary artery disease) I25.10 HTN (hypertension) I10 CPT Codes EKG - CPT: 70078-[id number], Complete ([id number])
[2023-10-26 08:30] VITALS: BP 130/70; PULSE 74; BMI 28.9
== END 2023-10-26 08:56 | disposition home or self-care (01) ==
PROVIDERS: Visit Provider Internal Medicine Cardiovascular Disease
DX: I25.10 Atherosclerotic heart disease of native coronary artery without angina pectoris (principal); I10 Essential (primary) hypertension
CPT/HCPCS: 93010; 99214

== ENCOUNTER → 2023-10-26 08:17 | Outpatient (BNVA) | payer OTHER, SELFPAY | PROVIDERS: Visit Provider Internal Medicine Cardiovascular Disease | DX: I25.10 Atherosclerotic heart disease of native coronary artery without angina pectoris (principal); R07.2 Precordial pain; E78.5 Hyperlipidemia, unspecified; I10 Essential (primary) hypertension; Z82.49 Family history of ischemic heart disease and other diseases of the circulatory system; Z79.899 Other long term (current) drug therapy | CPT/HCPCS: 93005 ==

== ENCOUNTER → 2023-12-01 07:43 | Outpatient (REF) | payer OTHER, SELFPAY ==
--- NOTE | 2023-12-01 07:47 | CA_ITS ---
Acquisition Time: 2023-12-01 08:03:11 Total Exercise Time: 00:06:00 Test Indications: CHEST PAIN Medications: VIT D METOPROLOL ROSUVASTATIN Protocol: RAFFI Max HR: 153 BPM 102% of Pred: 149 BPM Max BP: 196/060 mmHG Max Work Load: 7.0 METS Exercise stress test with exercise 6 min of Raffi protocol, achieving 102% MPHR, without anginal symptoms, with isolated PACs, with hypertensive response to exercise with max BP 196/60, without EKG changes meeting criteria for ischemia during exercise, In recovey there are nonspecific ST/ T wave abnormalities noted inferiorly and V5-V6, asymptomatic BP returned to 136/50. . Test reviewed with Dr Cherry Referred By: Sal Cherry Overread By: RONNIE SANTOS
[2023-12-01 09:07] LABS: MANUAL DIFF FLAG NO
[2023-12-01 09:52] LABS: Basophils Absolute Auto 0.1 X10*3/uL (0.0-0.2); Basophils Percent Auto 1.1 % (0-2); Eosinophils Absolute Auto 0.3 X10*3/uL (0.0-0.4); Eosinophils Percent Auto 4.7 % (0-4); Hematocrit 43.6 % (37.0-47.0); Hemoglobin 14.3 g/dl (12.0-16.0); Imm Gran Abs Auto 0.01 X10*3/uL (0.00-0.03); Imm Gran Pct Auto 0.1 % (0.0-0.4); Lymphocytes Absolute Auto 2.5 X10*3/uL (1.2-4.9); Mean Corpuscular HGB Conc 32.8 g/dl (31.0-35.0); Mean Corpuscular Hemoglobin 30.2 pg (27.0-33.0); Mean Platelet Volume 11.1 fL (9.4-12.3); Monocytes Absolute Auto 0.7 X10*3/uL (0.1-1.2); Monocytes Percent Auto 10.3 % (2-11); Neutrophils Absolute Auto 3.4 x10*3/uL (2.0-8.3); Neutrophils Percent Auto 47.8 % (45-73); Platelet Count 248 X10*3/uL (160-400); Red Blood Count 4.74 X10*6/uL (4.20-5.50); Red Cell Distribution Width 12.9 % (11.0-16.0); White Blood Count 7.1 X10*3/uL (4.8-10.8)
[2023-12-01 10:38] LABS: Erythrocyte Sedimentation Rate 11 MM/HR (0-20)
[2023-12-01 10:48] LABS: Alanine Aminotransferase 21 U/L (0-31); Albumin Level 4.2 g/dL (3.5-5.0); Alkaline Phosphatase 59 U/L (39-117); Anion Gap 13 (12-20); Aspartate Amino Transferase 22 U/L (5-31); Blood Urea Nitrogen 12 mg/dL (9-16); C Reactive Protein 0.17 mg/dL (< or = 0.50); Calcium 9.8 mg/dL (8.4-10.2); Carbon Dioxide 25 mmol/L (22-29); Chloride 109 mmol/L (96-108); Estimated Glomerular Filt Rate > 60; Glucose Random 98 mg/dL (60-115); Potassium 4.5 mmol/L (3.3-5.1); Sodium 142 mmol/L (135-145); Total Protein 6.9 g/dL (6.5-8.0)
== END ==
LOC: HO.CARD 07:43
PROVIDERS: Absent Provider Internal Medicine; PCP Internal Medicine; Visit Provider Internal Medicine Cardiovascular Disease
DX: R07.89 Other chest pain (principal); R00.2 Palpitations; R10.9 Unspecified abdominal pain
CPT/HCPCS: 36415; 80053; 85025; 85652; 86140; 93017

== ENCOUNTER → 2023-12-01 07:47 | Outpatient (BNV) | payer OTHER, SELFPAY | PROVIDERS: Absent Provider Internal Medicine; PCP Internal Medicine; Visit Provider Nurse Practitioner Family | DX: R07.9 Chest pain, unspecified (principal) | CPT/HCPCS: 93016; 93018 ==

== ENCOUNTER 2023-12-13 05:57 | Outpatient (REF) | payer OTHER, SELFPAY ==
--- NOTE | ~2023-12-13 | CT_ITS ---
EXAMINATION: CT ABDOMEN AND PELVIS WITH CONTRAST CLINICAL INFORMATION: Left lower quadrant pain, question hernia versus diverticulitis COMPARISON: 04/21/2023 TECHNIQUE: Multidetector volumetric images were obtained from the superior aspect of the liver through the pubic symphysis following administration 85 mL of Omnipaque 350 intravenous contrast. Sagittal and coronal reformatted images were obtained on the technologist's workstation. Oral contrast: No This CT examination was performed using dose optimization techniques as appropriate, variously including the following: *Automated exposure control *Adjustment of mA and/or kV according to patient size (this includes techniques or standardized protocols for targeted exams where dose is matched to indication/reason for exam; i.e. 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 LUNG BASES: The visualized lung bases are unremarkable. Heart size within normal limits. No pericardial effusion. LIVER, GALLBLADDER, AND BILIARY TREE: Diffuse mild attenuation to the liver parenchyma. No focal hepatic lesion or biliary ductal dilatation is present. The gallbladder contains radiopaque gallstone. Gallbladder wall thickening, or obvious pericholecystic inflammatory changes. PANCREAS: Unremarkable. SPLEEN: Unremarkable. ADRENAL GLANDS: Unremarkable. KIDNEYS AND URETERS: The kidneys are normal in size, shape, and attenuation. No hydronephrosis, hydroureter, or calculi seen. Bilateral parapelvic cysts, left greater than right. No perinephric stranding. BLADDER: Unremarkable. GASTROINTESTINAL TRACT: Small hiatal hernia. Stomach. Nonobstructive bowel pattern. Unremarkable terminal ileum and appendix. Diverticulosis without diverticulitis. ABDOMINAL WALL: Postsurgical changes anterior abdominal wall and left inguinal region. Redemonstration anterior abdominal musculature atrophy. Rectus diastasis with increasing bulging, likely due to subjacent air filled cecum. Other than very small fat filled umbilical hernia, no significant hernia seen. LYMPH NODES: Normal. VASCULAR: Atherosclerotic calcifications nonaneurysmal aorta with patency of the mesenteric vessels. Unremarkable inferior vena cava. Patent portal system. PELVIC VISCERA: Unremarkable. OSSEOUS/ SOFT TISSUE STRUCTURES: No suspicious osseous lesions. Right lower breast surgical clips. CT/CT abdomen pelvis w IV con IMPRESSION: No acute intra-abdominal or pelvic pathology. Cholelithiasis. Diverticulosis. Previous anterior abdominal surgery with increasing rectus diastasis bulge. No significant hernia. Fleischner guidelines were followed.
[2023-12-13] MEDS: iohexoL 350 MG/ML 75 ML INFUS..BTL 85 ML IV (08:29)
[2023-12-13] MEDS: Barium Sulfate Oral (Berry) 450 ML ORAL.SUSP 900 ML PO (08:30)
== END 2023-12-13 05:58 | disposition home or self-care (01) ==
LOC: HO.CT 05:57
PROVIDERS: PCP Internal Medicine; Visit Provider Internal Medicine
DX: R10.32 Left lower quadrant pain (principal); K57.90 Diverticulosis of intestine, part unspecified, without perforation or abscess without bleeding; M62.08 Separation of muscle (nontraumatic), other site; K42.9 Umbilical hernia without obstruction or gangrene
CPT/HCPCS: 74177; Q9967

== ENCOUNTER 2024-01-11 15:11 | Outpatient (AMB) | payer OTHER, SELFPAY ==
--- NOTE | 2024-01-11 15:11 | MHC.OFFVIS ---
Intake Vital Signs 01/11/24 15:24 Height 5 ft 3 in Weight 164 lb BMI 29.0 BP 134/68 Blood Pressure Location Rt brachial Position Sitting Pulse 84 Intake Visit Reasons: LLQ pain, diverticulosis, ? hernia -CT 12/13 Intake Note: This patient presents for a follow-up assessment for CT-Scan results for LLQ pain and diverticulosis, question of hernia. Patient c/o; reports no complaints. 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 Accompanied by: Self / Same As Patient Allergies adhesive Allergy (Intermediate, Uncoded 01/11/24 15:12) blisters From AUGMENTIN Adverse Reaction (Unknown, Uncoded 01/11/24 15:12) INTOLERANCE From Augmentin Adverse Reaction (Unknown, Uncoded 01/11/24 15:12) INTOLERANCE Medication List - Last Reconciled 01/11/24 by Korey Perez MD aspirin 81 mg PO DAILY cholecalciferol (vitamin D3) 50 mcg PO DAILY metoprolol succinate ER 50 mg PO DAILY multivitamin with minerals (Hair,Skin and Nails tablet) 1 tab PO DAILY rosuvastatin (Crestor) 40 mg PO DAILY 90 days timolol maleate 0.5% 0 drps ophthalmic (eye) QAM HPI LLQ pain, diverticulosis, ? hernia -CT 12/13 HPI Details 73-year-old female here for follow-up for chronic left-sided abdominal pain. She states that she has this palpable bulge on the area just next to her umbilicus and to the left inferiorly. She feels that this was consistent with a hernia. She says that the bulge is reducible but would sometimes be more prominent than other times. She has a history of a TRAM flap in 2014 after she had breast surgery and reconstruction. She has other multiple complaints including headaches, hair loss, insomnia, and sense of poor well being. She denies GI complaints. She does state that this palpable bulge on the left side has been getting uncomfortable. [facility] Medical History (Updated 01/11/24 @ 15:23 by Korey Perez MD) Left lower quadrant pain Abdominal wall bulge Hyperlipidemia CAD (coronary artery disease) Osteoporosis Rectal pain Anxiety Abdominal wall hernia Annual physical exam Abdominal pain Hx of breast cancer History of diverticulitis GERD (gastroesophageal reflux disease) History of snoring HTN (hypertension) Surgical History History of breast reconstruction H/O right mastectomy H/O left mastectomy Hx of varicose vein stripping Hx of carpal tunnel repair Hx of hammer toe correction H/O partial resection of colon H/O esophagogastroduodenoscopy Hx of colonoscopy Family History Father Alzheimer's dementia Unknown family medical history Mother CVD (cardiovascular disease) Myocardial infarction Maternal Grandmother Diabetes mellitus Maternal Grandfather No problems noted. Paternal Grandfather No problems noted. Paternal Grandmother No problems noted. Daughter No problems noted. Daughter No problems noted. Brother Substance use disorder Brother No problems noted. Brother No problems noted. Brother No problems noted. Brother Myocardial infarction Brother Throat cancer Myocardial infarction Maternal Aunt Stomach cancer Sister Myocardial infarction Social History Household Members Other:: lives alone, exercise occasionally Housing: House Are you a primary animal care worker to a significant other at home: No Do you presently have visiting nurse or other home services: No Alcohol intake: current Alcohol intake frequency: a few times a month Alcohol type: beer Patient Tobacco Use Status: Former Tobacco user e-Cigarette/Vaping Use: Never Used service: No Current occupational status: employed Review of Systems Const Details: Insomnia Denies chills and Denies fever(s) Card Denies chest pain, Denies dyspnea and Denies dyspnea on exertion Resp Denies cough, Denies dyspnea and Denies dyspnea on exertion GI Denies hematochezia and Denies change in bowel habits Denies hematuria Musc Denies back pain and Denies limited range of motion Neuro Details: Insomnia and headaches Denies focal weakness and Denies convulsions Psych Denies depression and Denies mood swings Physical Exam Vital Signs: Last Vital Signs Pulse 84 01/11/24 15:24 BP 134/68 01/11/24 15:24 BMI result Body Mass Index 29.0 Const General: comfortable and no acute distress Orientation/consciousness: patient oriented x3 Neck Neck: Yes no lymphadenopathy Resp Auscultation: clear to auscultation bilaterally Cardio Rhythm: regular rhythm GI Other: Palpable fascial defect on the abdominal wall on the left just adjacent to the umbilicus and inferiorly, about 5 cm in diameter, easily reducible Palpation (GI): Soft to palpation, nontender and no guarding Neuro General: patient oriented x3 Assessment & Plan Assessment & Plan (1) Left lower quadrant pain: Code(s): R10.32 - Left lower quadrant pain Plan: I have reviewed her CAT scan from December 13, 2023. This does not reveal any acute inflammatory process. There has no evidence of any acute diverticulitis. This did not mention a hernia. However, physical exam does suggest a defect probably about 5 cm on the fascia on the left side just adjacent to the umbilicus. Review of her CT scan shows significant diastasis on this area as well. She does have a history of a TRAM flap in the past. I am going to review her operative note from that time. She does state that she feels a lump which is reducible on the area in question. She says that this been getting more uncomfortable to her. I explained to her therefore that in view of a palpable defect, we can proceed with laparoscopic repair of the hernia with mesh with possible conversion to open. I explained to her the technique of this procedure. I reviewed the risks including but not limited to bleeding, infections, bowel injury, recurrence, postop pain, as well as the benefits and alternatives. She is undecided at this time but will call me in the office if she wants to proceed She has other multiple complaints including headaches, hair loss, and severe insomnia. She is very concerned about these other complaints and says she needs to follow-up with her neurologist. Coding Level of Care Code Est Pt Level 3 (45996) Diagnoses Left lower quadrant pain R10.32
[2024-01-11 15:24] VITALS: BP 134/68; PULSE 84; BMI 29.0
== END 2024-01-11 15:42 | disposition home or self-care (01) ==
PROVIDERS: PCP Internal Medicine; Referring Provider Internal Medicine; Visit Provider Surgery
DX: R10.32 Left lower quadrant pain (principal)
CPT/HCPCS: 99213

== ENCOUNTER → 2024-01-11 15:11 | Outpatient (BNVA) | payer OTHER, SELFPAY | PROVIDERS: PCP Internal Medicine; Referring Provider Internal Medicine; Visit Provider Surgery ==

== ENCOUNTER 2024-04-06 07:31 | Outpatient (REF) | payer OTHER, SELFPAY ==
[2024-04-06 07:46] LABS: MANUAL DIFF FLAG NO
[2024-04-06 07:53] LABS: Basophils Absolute Auto 0.1 X10*3/uL (0.0-0.2); Basophils Percent Auto 1.2 % (0-2); Eosinophils Absolute Auto 0.3 X10*3/uL (0.0-0.4); Eosinophils Percent Auto 5.8 % (0-4); Hemoglobin 14.3 g/dl (12.0-16.0); Imm Gran Abs Auto 0.01 X10*3/uL (0.00-0.03); Imm Gran Pct Auto 0.2 % (0.0-0.4); Lymphocytes Absolute Auto 1.9 X10*3/uL (1.2-4.9); Lymphocytes Percent Auto 32.5 % (20-40); Mean Corpuscular HGB Conc 33.3 g/dl (31.0-35.0); Mean Corpuscular Hemoglobin 30.7 pg (27.0-33.0); Mean Corpuscular Volume 92.3 fL (80.0-98.0); Mean Platelet Volume 10.2 fL (9.4-12.3); Monocytes Absolute Auto 0.6 X10*3/uL (0.1-1.2); Monocytes Percent Auto 9.9 % (2-11); Neutrophils Absolute Auto 2.9 x10*3/uL (2.0-8.3); Neutrophils Percent Auto 50.4 % (45-73); Platelet Count 244 X10*3/uL (160-400); Red Blood Count 4.66 X10*6/uL (4.20-5.50); Red Cell Distribution Width 13.1 % (11.0-16.0); White Blood Count 5.7 X10*3/uL (4.8-10.8)
[2024-04-06 08:52] LABS: Alanine Aminotransferase 21 U/L (0-31); Alkaline Phosphatase 56 U/L (39-117); Anion Gap 12 (12-20); Aspartate Amino Transferase 23 U/L (5-31); Bilirubin Total 1.2 mg/dL (0.0-1.0); Blood Urea Nitrogen 16 mg/dL (9-16); Calcium 9.2 mg/dL (8.4-10.2); Carbon Dioxide 27 mmol/L (22-29); Chloride 108 mmol/L (96-108); Cholesterol 143 mg/dL (<200); Estimated Glomerular Filt Rate > 60; Glucose Random 98 mg/dL (60-115); HDL Cholesterol 70 mg/dL (>40); LDL Cholesterol Calculated 55 mg/dL (<100); Potassium 4.2 mmol/L (3.3-5.1); Sodium 143 mmol/L (135-145); Total Protein 6.7 g/dL (6.5-8.0); Triglycerides 91 mg/dL (<150)
[2024-04-06 09:13] LABS: TSH reflex Free T4 1.02 uIU/mL (0.32-4.0)
== END 2024-04-06 07:32 | disposition home or self-care (01) ==
LOC: HO.LAB 07:31
PROVIDERS: PCP Internal Medicine; Visit Provider Internal Medicine
DX: E78.5 Hyperlipidemia, unspecified (principal); I10 Essential (primary) hypertension; R53.83 Other fatigue
CPT/HCPCS: 36415; 80053; 80061; 84443; 85025

== ENCOUNTER 2024-04-08 14:23 | Outpatient (AMB) | payer OTHER, SELFPAY ==
[2024-04-08 14:31] VITALS: BMI 29.0
--- NOTE | 2024-04-08 14:31 | A.OFFVIS_ITS ---
Vital Signs 04/08/24 14:31 Height 5 ft 3 in Weight 164 lb BMI 29.0 Intake Visit Reasons: Left leg swelling Intake Note: Pt re-referred for LE swelling w/ Hx of VV procedures, does have some new Left LE pretibial varicosities. Also has LE swelling over calves, Left LE worse than Right. Wearing compression daily. Pt states she works from home and is working at desk w/ legs elevated. Accompanied by: Self / Same As Patient Allergies adhesive Allergy (Intermediate, Uncoded 04/08/24 14:36) blisters From AUGMENTIN Adverse Reaction (Unknown, Uncoded 04/08/24 14:36) INTOLERANCE From Augmentin Adverse Reaction (Unknown, Uncoded 04/08/24 14:36) INTOLERANCE HPI HPI Left leg swelling: Details: Very pleasant 62-year-old female presents to us for follow-up regarding lower extremity swelling. She continues to follow-up with us regarding lower extremity swelling. She had previously seen Cardiology as concerned about her repeat swelling of her legs. Of note she has had prior venous insufficiency testing. That prove to be negative. She is now for lymphedema clinic follow- up. She has continued bilateral lower extremity swelling. She has had a period of conservative measures. He continues to be an issue for her.. She now presents for follow-up. Of note she did have a prior tram flap [facility] Medical History Left lower quadrant pain Abdominal wall bulge Hyperlipidemia CAD (coronary artery disease) Osteoporosis Rectal pain Anxiety Abdominal wall hernia Annual physical exam Abdominal pain Hx of breast cancer History of diverticulitis GERD (gastroesophageal reflux disease) History of snoring HTN (hypertension) Surgical History History of breast reconstruction H/O right mastectomy H/O left mastectomy Hx of varicose vein stripping Hx of carpal tunnel repair Hx of hammer toe correction H/O partial resection of colon H/O esophagogastroduodenoscopy Hx of colonoscopy Family History Father Alzheimer's dementia Unknown family medical history Mother CVD (cardiovascular disease) Myocardial infarction Maternal Grandmother Diabetes mellitus Maternal Grandfather No problems noted. Paternal Grandfather No problems noted. Paternal Grandmother No problems noted. Daughter No problems noted. Daughter No problems noted. Brother Substance use disorder Brother No problems noted. Brother No problems noted. Brother No problems noted. Brother Myocardial infarction Brother Throat cancer Myocardial infarction Maternal Aunt Stomach cancer Sister Myocardial infarction Social History Household Members Other:: lives alone, exercise occasionally Housing: House Are you a primary child day care provider to a significant other at home: No Do you presently have visiting nurse or other home services: No Alcohol intake: current Alcohol intake frequency: a few times a month Alcohol type: beer Patient Tobacco Use Status: Former Tobacco user e-Cigarette/Vaping Use: Never Used service: No Current occupational status: employed Review of Systems Const All systems reviewed & are unremarkable except as noted in HPI and below Reports no additional complaints ENT Reports Normal hearing present Card Denies chest pain, Denies chest pain at rest, Denies chest pain with activity and Denies pedal edema Resp Denies cough GI Denies abdominal pain Musc Denies abnormal gait, Denies muscle cramps and Denies radiating pain into limb Skin/Breast Denies skin ulcer and Denies wounds Neuro Reports Normal hearing present and Denies abnormal gait Psych Reports no additional complaints Physical Exam Vital Signs: BMI result Body Mass Index 29.0 Const General: cooperative, healthy appearing and comfortable Orientation/consciousness: oriented to person, oriented to place and oriented to time HEENT Head: Yes normal to inspection Neck Neck: Yes normal visual inspection Carotids: no bruits Chest Chest palpation & inspection: normal inspection of the chest Resp Effort & Inspection: normal respiratory effort and able to speak in complete sentences Auscultation: clear to auscultation bilaterally, no crackles, no rales, no rhonchi and no wheezes Cardio Rate: regular rate Rhythm: regular rhythm Heart sounds: S1 normal heart sound present and S2 normal heart sound present Bruits: no carotid bruits Peripheral pulses: Peripheral pulses 2+ throughout GI Inspection: Yes normal to inspection Skin Wounds: no wounds Hair: normal Neuro General: oriented to person, oriented to place and oriented to time Cranial nerves: Yes CN's II-XII intact bilaterally and Yes Normal hearing present Cognition (Neuro): normal cognition Motor exam (neuro): 5/5 motor strength present throughout Extrem Other: venous exam: +2 edema General: No clubbing, No cyanosis and No edema Psych Appearance: grossly normal Mental Status: mental status grossly normal Speech and movement: Normal speech and movement present Assessment & Plan Assessment & Plan (1) Lymphedema: Code(s): I89.0 - Lymphedema, not elsewhere classified Category: Medical Plan: In short the patient has late on sent lymphedema. The patient has been on conservative treatment for at least 3 months with minimal relief. Patient has tried 30 mm of mercury compression garments, elevation, exercise healthy diet and doing manual says self MLD to the best of their ability for over 4 weeks but with no significant relief. She has been compliant with the program but has provided minimal relief. At the current time she would like to continue to manage this conservatively. She does feel that this may be related to her previous surgery. She does have a prior history of breast cancer and did have a tram flap which may be contributing to this. Once again we will manage this conservatively but did provide her information and demonstration the lymphedema pumps. Should she like to revisit this we would be happy to continue with the process obtaining lymphedema pumps. She will follow up with us on an as-needed basis. Thank you for allowing us to assist in her care. If there are any questions or concerns please do not hesitate to call us Coding Level of Care Code Est Pt Level 4 (36966) Diagnoses Lymphedema I89.0
== END 2024-04-08 15:12 | disposition home or self-care (01) ==
PROVIDERS: PCP Internal Medicine; Visit Provider Surgery Vascular Surgery
DX: I89.0 Lymphedema, not elsewhere classified (principal)
CPT/HCPCS: 99213

== ENCOUNTER → 2024-04-08 14:23 | Outpatient (BNVA) | payer OTHER, SELFPAY | PROVIDERS: PCP Internal Medicine; Visit Provider Surgery Vascular Surgery ==

== ENCOUNTER 2024-04-16 12:16 | Emergency (ER) | payer OTHER, SELFPAY ==
--- NOTE | ~2024-04-16 | XR_ITS ---
EXAMINATION: XR SHOULDER, RIGHT CLINICAL INFORMATION: Shoulder injury with pain COMPARISON: None available. TECHNIQUE: 3 views of the right shoulder. FINDINGS: Minimal degenerative changes are present at the AC joint and at the inferior glenoid. Subtle some chondral cysts are seen overlying the greater tuberosity. No fractures, dislocations or rotator cuff calcifications. XR/XR shoulder RT min 2V IMPRESSION: Mild degenerative changes. No acute finding.
[2024-04-16 12:38] VITALS: BP 143/63; PULSE 80; RESP 16; TEMP 36.3; O2SAT 94; BMI 22.5
--- NOTE | 2024-04-16 12:40 | ED_ITS ---
HPI - General Adult General Chief complaint: Extremity Injury, Upper Stated complaint: work inj Time Seen by Provider: 04/16/24 13:26 Source: patient Mode of arrival: ambulatory Limitations: no limitations History of Present Illness ED Provider: Maria Isabel Mills NP HPI narrative: Patient is a 73-year-old female with history of lymphedema, hyperlipidemia, CAD, Raynaud's, PID, GERD, osteoporosis, HTN presenting to the emergency department with complaint of right shoulder pain for the past month and a half. Radiates down upper arm. States pain is worst when her arm is resting on her desk at work. Worse when laying on right side to sleep. Pain also increases with overhead movements. Denies precipitating fall or other trauma. Denies numbness or tingling. Has not taken any over the counter medications for her symptoms. MD complaint: right shoulder pain Onset (ago): month(s) Location: right and upper extremity Severity: severe Quality: aching Pain Consistency: constant Relieving factors: none Exacerbating factors: movement Associated symptoms: denies other symptoms Treatments prior to arrival: none Related Data Home Medications ?Medication ?Instructions ?Recorded ?Confirmed multivitamin with minerals 1 tab PO DAILY 07/12/22 01/11/24 (Hair,Skin and Nails tablet) timolol maleate 0.5 % eye drops 0 drp ophthalmic (eye) QAM 10/20/22 01/11/24 Previous Rx's ?Medication ?Instructions ?Recorded cholecalciferol (vitamin D3) 50 50 mcg PO DAILY #90 caps 08/10/22 mcg (2,000 unit) capsule rosuvastatin 40 mg tablet (Crestor) 40 mg PO DAILY 90 days #90 tabs 06/08/23 aspirin 81 mg tablet,delayed 81 mg PO DAILY #90 tabs 12/07/23 release metoprolol succinate 50 mg 50 mg PO DAILY #90 tabs 03/06/24 tablet,extended release 24 hr pantoprazole 40 mg tablet,delayed 40 mg PO DAILY #90 tabs 03/28/24 release lidocaine 5 % topical patch 1 patch topical DAILY #15 ea 04/16/24 naproxen 500 mg tablet 500 mg PO BID #28 tabs 04/16/24 Allergies Allergy/AdvReac Type Severity Reaction Status Date / Time adhesive tape AdvReac Mild Unknown Verified 04/16/24 12:39 From Augmentin AdvReac Unknown INTOLERANCE Uncoded 04/08/24 14:36 Review of Systems Review of Systems: As per HPI. Yes all other systems are reviewed and are negative Constitutional: Constitutional: Reports as per HPI [facility] Past Medical History Medical History Left lower quadrant pain Abdominal wall bulge Hyperlipidemia CAD (coronary artery disease) Osteoporosis Rectal pain Anxiety Abdominal wall hernia Annual physical exam Abdominal pain Hx of breast cancer History of diverticulitis GERD (gastroesophageal reflux disease) History of snoring HTN (hypertension) Surgical History History of breast reconstruction H/O right mastectomy H/O left mastectomy Hx of varicose vein stripping Hx of carpal tunnel repair Hx of hammer toe correction H/O partial resection of colon H/O esophagogastroduodenoscopy Hx of colonoscopy Family History Family History Father Alzheimer's dementia Unknown family medical history Mother CVD (cardiovascular disease) Myocardial infarction Maternal Grandmother Diabetes mellitus Maternal Grandfather No problems noted. Paternal Grandfather No problems noted. Paternal Grandmother No problems noted. Daughter No problems noted. Daughter No problems noted. Brother Substance use disorder Brother No problems noted. Brother No problems noted. Brother No problems noted. Brother Myocardial infarction Brother Throat cancer Myocardial infarction Maternal Aunt Stomach cancer Sister Myocardial infarction Social History Social History Household Members Other:: lives alone, exercise occasionally Housing: House Are you a primary care transition coordinator to a significant other at home: No Do you presently have visiting nurse or other home services: No Alcohol intake: current Alcohol intake frequency: a few times a month Alcohol type: beer Patient Tobacco Use Status: Former Tobacco user e-Cigarette/Vaping Use: Never Used Advance Directives: No Do you have a plan to hurt others: No Plan service: No Current occupational status: employed Physical Exam ED Vital Signs: Vital Signs - 24 hr 04/16/24 12:38 Temperature 97.4 F Pulse Rate 80 Respiratory Rate 16 Blood Pressure 143/63 H Pulse Oximetry 94 Oxygen Delivery Method Room Air BMI result Body Mass Index 22.5 Vital signs have been reviewed and appear to be correct. Blood pressure normal. Heart rate normal. Respiratory rate normal. Temperature normal. Oxygen saturation normal. Const General: cooperative, healthy appearing and no acute distress Orientation/consciousness: oriented to person, oriented to place, oriented to time and patient oriented x3 Limitations: no limitations HENMT Head: Yes normocephalic and Yes atraumatic Ears: external ears normal General nose exam: Normal external nose present Face and sinus: Yes face symmetric Mouth: oropharynx normal and moist mucous membranes Throat: Yes uvula midline Eyes Pupils: Equal, round and reactive pupils present Neck Neck: Yes normal visual inspection and Yes supple Resp Effort & Inspection: normal respiratory effort and able to speak in complete sentences Auscultation: clear to auscultation bilaterally Cardio Rate: regular rate Rhythm: regular rhythm Heart sounds: S1 normal heart sound present and S2 normal heart sound present GI Palpation (GI): Soft to palpation and nontender Auscultation: normoactive bowel sounds General: Yes no CVA tenderness Back/Spine/Pelvis Back: no CVA tenderness Skin General skin exam: elasticity normal and turgor normal Neuro General: oriented to person, oriented to place, oriented to time, patient oriented x3, moves all extremities, no focal motor deficits and CN's II-XI intact bilaterally Cranial nerves: Yes Equal, round and reactive pupils present Cognition (Neuro): normal cognition Extrem General: Yes full ROM, Yes no pedal edema and Yes no calf tenderness Right upper extremity: shoulder/upper arm Details: normal to inspection, tenderness Location: of the A-C joint and abnormal ROM Details: pain with active ROM Details: in ABduction, in internal rotation and external rotation- and with range as follows (limited in abduction, internal and external rotation) and Extremity exam: right hand Details: vascular exam Details: radial pulse present Psych Mental Status: mental status grossly normal Affect: normal affect Thought process: Normal thought process present Course Course Course Narrative: RME performed by Yeimy Meza PA-C. Patient is a 73 year old assigned female at presenting to the emergency department with right shoulder pain. Detailed physical exam and review of systems are deferred to the credit underwriter. Imaging ordered. Patient placed back in the waiting room pending room availability and results. Medical Decision Making Medical Decision Making MDM Narrative: Patient is a 73-year-old female with history of lymphedema, hyperlipidemia, CAD, Raynaud's, PID, GERD, osteoporosis, HTN presenting to the emergency department with complaint of right shoulder pain for the past month and a half. On exam patient is awake, A+Ox3, VS WNL, afebrile, normal neurological exam without focal deficits, physical exam findings as above. Given reported symptoms and physical exam findings, initial differential includes rotator cuff tendinopathy versus tear, osteoarthritis, biceps tendinopathy. X-ray notable for mild degenerative changes, no acute abnormality. My interpretation is in agreement with the radiologist's interpretation. Discussed with patient that she will need to follow up with ortho for further evaluation and management. Will send prescription for naproxen and topical lidocaine patches. Return precautions discussed. Patient verbalized understanding of and agreement with plan. Differential Diagnosis Differential Diagnoses: The differential diagnosis associated with the presentation includes As per MDM Independent Interpretation I performed an independent interpretation of an: Plain X-Ray Interpretation: Mild degenerative changes to right shoulder Radiology Impression Discussion of test interpretation with radiology: I have reviewed the radiologist's reading. Radiologist Impression: XR/XR shoulder RT min 2V IMPRESSION: Mild degenerative changes. No acute finding. External Record Review External record reviewed: Inpatient record, Office record and Outpatient record Prescription Management I considered prescription management with: Pain Medication Discharge Plan Discharge Clinical Impression: Tendinopathy of right rotator cuff Patient Disposition: Home, Self-Care Instructions: Rotator Cuff Injury (ED), Rotator Cuff Tendinitis (ED), Rotator Cuff Injury Exercises (DC) Additional Instructions: You were evaluated in the emergency department today for right shoulder pain which is likely due to rotator cuff tendinopathy. You are being prescribed naproxen to decrease inflammation as well as topical lidocaine patches. You can wear the patches for up to 12 hours in a 24 hour period, do not apply heat directly over the patches. We recommend applying ice for 10-15 minutes at a time several times daily to decrease inflammation. You are being referred to Orthopedics for further evaluation and management. Please call their office to schedule an appointment, they will not call you. Return to the emergency department if you develop increasing pain, new weakness, numbness, tingling, fever or any other concerning symptoms. Prescriptions: New naproxen 500 mg tablet 500 mg PO BID Qty: 28 0RF lidocaine 5 % adhesive patch,medicated 1 patch topical DAILY Qty: 15 0RF Rx Instructions: leave on most painful area for up to 12 hrs No Action cholecalciferol (vitamin D3) 50 mcg (2,000 unit) capsule 50 mcg PO DAILY Qty: 90 3RF rosuvastatin [Crestor] 40 mg tablet 40 mg PO DAILY 90 Days Qty: 90 3RF aspirin 81 mg tablet,delayed release (DR/EC) 81 mg PO DAILY Qty: 90 3RF metoprolol succinate 50 mg tablet extended release 24 hr 50 mg PO DAILY Qty: 90 3RF pantoprazole 40 mg tablet,delayed release (DR/EC) 40 mg PO DAILY Qty: 90 1RF Hair,Skin and Nails Tablet 1 tab PO DAILY timolol maleate 0.5 % drops 0 drp ophthalmic (eye) QAM Referrals: [facility] [Provider Group] Print Language: [place]
[2024-04-16 15:16] VITALS: BP 165/78; PULSE 88; RESP 20; TEMP 36.9; O2SAT 97
[2024-04-16 15:27] VITALS: BP 165/78; PULSE 88; RESP 20; TEMP 36.9; O2SAT 97
== END 2024-04-16 15:27 | disposition home or self-care (01) ==
PROVIDERS: Emergency Provider Emergency Medicine; PCP Internal Medicine
DX: M75.101 Unspecified rotator cuff tear or rupture of right shoulder, not specified as traumatic (principal); M25.511 Pain in right shoulder; I10 Essential (primary) hypertension; E78.5 Hyperlipidemia, unspecified; K21.9 Gastro-esophageal reflux disease without esophagitis; I73.00 Raynaud's syndrome without gangrene; Z85.3 Personal history of malignant neoplasm of breast; Z79.82 Long term (current) use of aspirin; Z79.899 Other long term (current) drug therapy
CPT/HCPCS: 73030; 99283

== ENCOUNTER → 2024-04-17 09:39 | Outpatient (BNVA) | payer OTHER, SELFPAY | PROVIDERS: PCP Internal Medicine; Visit Provider Physician Assistant Medical | DX: Z13.89 Encounter for screening for other disorder (principal) | CPT/HCPCS: 99203 ==

== ENCOUNTER 2024-04-23 14:51 | Outpatient (AMB) | payer OTHER, SELFPAY ==
--- NOTE | 2024-04-23 15:13 | A.OFFVIS_ITS ---
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 Patient reports her pain has been going on since january. She expresses that her pain has been getting worse. Pain is worse when she is sleeping on her side and typing. 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 Patient presented to the ED on 04/16/2024 with a complaint of pain for 1.5 months. X-rays were obtained. She was prescribed naproxen 500 mg PO BID and topical lidocaine patches 1 patch daily. While in the office today the patient reports she has had ongoing pain since 01/2024 and claims it has increased with time. She states she also has an increase in pain with sleeping on her right side and typing. \ Patient denies any trauma or injury to the right upper extremity. 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 [facility] Medical History Left lower quadrant pain Abdominal wall bulge Hyperlipidemia CAD (coronary artery disease) Osteoporosis Rectal pain Anxiety Abdominal wall hernia Annual physical exam Abdominal pain Hx of breast cancer History of diverticulitis GERD (gastroesophageal reflux disease) History of snoring HTN (hypertension) Surgical History History of breast reconstruction H/O right mastectomy H/O left mastectomy Hx of varicose vein stripping Hx of carpal tunnel repair Hx of hammer toe correction H/O partial resection of colon H/O esophagogastroduodenoscopy Hx of colonoscopy Family History Father Alzheimer's dementia Unknown family medical history Mother CVD (cardiovascular disease) Myocardial infarction Maternal Grandmother Diabetes mellitus Maternal Grandfather No problems noted. Paternal Grandfather No problems noted. Paternal Grandmother No problems noted. Daughter No problems noted. Daughter No problems noted. Brother Substance use disorder Brother No problems noted. Brother No problems noted. Brother No problems noted. Brother Myocardial infarction Brother Throat cancer Myocardial infarction Maternal Aunt Stomach cancer Sister Myocardial infarction Social History Household Members Other:: lives alone, exercise occasionally Housing: House Are you a primary daycare manager to a significant other at home: No Do you presently have visiting nurse or other home services: No Alcohol intake: current Alcohol intake frequency: a few times a month Alcohol type: beer Patient Tobacco Use Status: Former Tobacco user e-Cigarette/Vaping Use: Never Used service: No Current occupational status: employed Review of Systems Const All systems reviewed & are unremarkable except as noted in HPI and below Physical Exam Vital Signs: BMI result Body Mass Index 22.5 Const General: cooperative and no acute distress Orientation/consciousness: patient oriented x3 Resp Effort & Inspection: normal respiratory effort and able to speak in complete sentences Cardio Peripheral pulses: Peripheral pulses 2+ throughout Skin General skin exam: no rashes or lesions noted Neuro General: patient oriented x3 Extrem Other: Right upper extremity: Lateral sided edema noted along the humerus. Forward flexion and abduction to 45 degrees. External rotation to neutral. Unable to perform special tests due to pain. NVI. Assessment & Plan Assessment & Plan (1) Injury of right rotator cuff: Code(s): S46.001A - Unspecified injury of muscle(s) and tendon(s) of the rotator cuff of right shoulder, initial encounter Category: Medical Qualifiers: Encounter type: initial encounter Qualified Code(s): S46.001A - Unspecified injury of muscle(s) and tendon(s) of the rotator cuff of right shoulder, initial encounter (2) Painful arc syndrome of right shoulder: Code(s): M75.101 - Unspecified rotator cuff tear or rupture of right shoulder, not specified as traumatic Category: Medical Plan Ms. García is a 73-year-old left hand dominant female who presents in the office today for an evaluation of right shoulder pain. Patient presented to the ED on 04/16/2024 with a complaint of pain for 1.5 months. X-rays were obtained. She was prescribed naproxen 500 mg PO BID and topical lidocaine patches 1 patch daily. While in the office today the patient reports she has had ongoing pain since 01/2024 and claims it has increased with time. She states she also has an increase in pain with sleeping on her right side and typing. \ Patient denies any trauma or injury to the right upper extremity. 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 A stat MRI was ordered in the office today to evaluate the integrity of the right shoulder and the surrounding structures. Follow-up will be after the MRI is obtained, or sooner if needed. X-rays of the right shoulder, obtained on 04/16/2024, revealed: Mild degenerative changes. No acute finding. Patient Instructions: Scribed by Leilani Theodore medical office technician, for Vicki Ray PA-C on at 3:24 pm, EST. Coding Level of Care Code New Pt Level 4 (37945) Diagnoses Injury of right rotator cuff, initial encounter S46.001A Encounter type: initial encounter Painful arc syndrome of right shoulder M75.101
[2024-04-23 15:16] VITALS: BMI 22.5
== END 2024-04-23 15:47 | disposition home or self-care (01) ==
PROVIDERS: PCP Internal Medicine; Visit Provider Physician Assistant
DX: S46.001A Unspecified injury of muscle(s) and tendon(s) of the rotator cuff of right shoulder, initial encounter (principal); M75.101 Unspecified rotator cuff tear or rupture of right shoulder, not specified as traumatic; Z04.2 Encounter for examination and observation following work accident
CPT/HCPCS: 99204

== ENCOUNTER → 2024-04-23 14:51 | Outpatient (BNVA) | payer OTHER, SELFPAY | PROVIDERS: PCP Internal Medicine; Visit Provider Physician Assistant | DX: S46.001A Unspecified injury of muscle(s) and tendon(s) of the rotator cuff of right shoulder, initial encounter (principal); M75.101 Unspecified rotator cuff tear or rupture of right shoulder, not specified as traumatic; X58.XXXA Exposure to other specified factors, initial encounter; Y93.9 Activity, unspecified; Y92.9 Unspecified place or not applicable; Y99.9 Unspecified external cause status | CPT/HCPCS: 99202 ==

== ENCOUNTER → 2024-04-24 14:20 | Outpatient (BNVA) | payer OTHER, SELFPAY | PROVIDERS: PCP Internal Medicine; Visit Provider Physician Assistant Medical | DX: Z13.89 Encounter for screening for other disorder (principal) | CPT/HCPCS: 99213 ==

== ENCOUNTER 2024-04-30 12:45 | Outpatient (AMB) | payer OTHER, SELFPAY ==
--- NOTE | 2024-04-30 12:52 | MHC.OFFVIS ---
Intake Visit Reasons: New problem - B/L hand numbness Intake Note: Siri is a 73 year old female who presents to the office today for numbness and tingling in her right hand. She states she had right shoulder pain that started in January 2024 which has got increasingly worse. She states she has an MRI scheduled 05/02/24 for her shoulder. She states her right hand is also weak. She states she does a lot of hand work while working. Allergies adhesive tape Adverse Reaction (Mild, Verified 04/30/24 12:52) Unknown From Augmentin Adverse Reaction (Unknown, Uncoded 04/30/24 12:52) INTOLERANCE HPI HPI New problem - B/L hand numbness: Details: Siri is a 73 year old right hand dominant woman who presents with complaints of right hand numbness. She complains of numbness in the right thumb, index, and middle fingers. Symptoms intermittent, but daily, worse at night. She also complains of weakness in her right hand which makes her job difficult. She has a hx of a left carpal tunnel release & small finger trigger release done by Dr. De La Rosa several years ago. She says her numbness resolved but she continues to have difficulty with her small finger locking & limited ROM. She says she has difficulty extending her small finger ever since her surgery. She complains of her left middle finger locking at times. She has pain and difficulty moving her right shoulder. She has an MRI scheduled for 05/02/24. She was unhappy with her surgery & post-operative appointments with Dr. De La Rosa and would like to see someone else for her current right shoulder pain. She says her NCS from several years ago showed bilateral carpal tunnel syndrome, but she does not have a copy of this study with her today. 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 [employer] Medical History Left lower quadrant pain Abdominal wall bulge Hyperlipidemia CAD (coronary artery disease) Osteoporosis Rectal pain Anxiety Abdominal wall hernia Annual physical exam Abdominal pain Hx of breast cancer History of diverticulitis GERD (gastroesophageal reflux disease) History of snoring HTN (hypertension) Surgical History History of breast reconstruction H/O right mastectomy H/O left mastectomy Hx of varicose vein stripping Hx of carpal tunnel repair Hx of hammer toe correction H/O partial resection of colon H/O esophagogastroduodenoscopy Hx of colonoscopy Family History Father Alzheimer's dementia Unknown family medical history Mother CVD (cardiovascular disease) Myocardial infarction Maternal Grandmother Diabetes mellitus Maternal Grandfather No problems noted. Paternal Grandfather No problems noted. Paternal Grandmother No problems noted. Daughter No problems noted. Daughter No problems noted. Brother Substance use disorder Brother No problems noted. Brother No problems noted. Brother No problems noted. Brother Myocardial infarction Brother Throat cancer Myocardial infarction Maternal Aunt Stomach cancer Sister Myocardial infarction Social History Household Members Other:: lives alone, exercise occasionally Housing: House Are you a primary critical care nurse specialist to a significant other at home: No Do you presently have visiting nurse or other home services: No Alcohol intake: current Alcohol intake frequency: a few times a month Alcohol type: beer Patient Tobacco Use Status: Former Tobacco user e-Cigarette/Vaping Use: Never Used service: No Current occupational status: employed Review of Systems Const All systems reviewed & are unremarkable except as noted in HPI and below Physical Exam Const General: cooperative, healthy appearing and no acute distress Orientation/consciousness: patient oriented x3 HEENT Head: Yes normocephalic and Yes atraumatic Eyes EOM: EOMs intact bilaterally Resp Effort & Inspection: normal respiratory effort and able to speak in complete sentences Cardio Jugular venous distension: no JVD Skin General skin exam: turgor normal Rashes: no rashes Neuro General: patient oriented x3 Extrem Other: Evaluation of Bilateral Upper Extremity: The patient is alert, oriented, and in no acute distress Neuro: Median, Ulnar, Radial nerves motor and sensory intact and sensation is normal to the tips of all digits No thenar or intrinsic wasting Good APB muscle belly firing and good finger cross Vascular: Cap refill brisk ROM: She can make a fist and extend all her digits of her right hand With encouragement her left hand can be brought into a tight fist and back into extension Her left small finger has a ~50-60 degree flexion contracture at the PIP joint, that is not passively reducible Good FDP & FDS tendon function Visible and palpable locking and catching of the left middle finger Skin: No lacerations or abrasions. General: No Ecchymosis. No Erythema or evidence of infection. Nerve Conduction Study: Moderate-severe bilateral carpal tunnel syndrome Dr. Reddy 2016 Psych Appearance: grossly normal Affect: normal affect Attitude: cooperative Office Procedures Fracture Care Details: No fracture, injection Fracture Billing Code: Fracture Billing Code Assessment & Plan Assessment & Plan (1) Carpal tunnel syndrome of right wrist: Code(s): G56.01 - Carpal tunnel syndrome, right upper limb Category: Medical (2) CAD (coronary artery disease): Code(s): I25.10 - Atherosclerotic heart disease of [place] coronary artery without angina pectoris Category: Medical (3) Trigger middle finger of left hand: Code(s): M65.332 - Trigger finger, left middle finger Category: Medical (4) Contracture of joint of finger of left hand: Comment: SF PIP joint Code(s): M24.542 - Contracture, left hand Category: Medical Plan Assessment & Plan: 1. Right carpal tunnel syndrome, moderate-severe Symptoms intermittent, but daily, worse at night I educated her about this condition I discussed operative and non-operative treatment options The patient would like to proceed with surgery The risks and benefits of operative treatment were discussed with the patient and the patient wishes to proceed with surgery. These risks include, but are not limited to risk of damage to blood vessels, nerves, tendons, infection, recurrence, incomplete relief of preoperative symptoms, persistent pain, possible need for further surgery and the risks associated with regional blocks and anesthesia. The plan is to take the patient to the operating room sometime in the next few weeks for the following procedures: 1. Right carpal tunnel release, under local All of the preoperative paperwork including the consent was reviewed today. All the patient's questions were answered. The patient understands that they will be contacted by our rn surgery icu soon to schedule this procedure. We may need to delay surgery depending on treatment for her right shoulder She denies Diabetes, blood thinners, asthma, lung, kidney issues She has CAD but denies any blood thinners 2. Left middle finger trigger finger I educated her about this condition I discussed operative and non-operative treatment options The patient would like to proceed with an injection today Injection #1: The risks and benefits of a steroid injection including but not limited to risk of damage to blood vessels, nerves, tendons, infection, skin bleaching, failure to improve symptoms, increased pain, and possible need for further injections or other intervention were discussed with the patient and the patient wishes to proceed with the steroid injection. Once consent was obtained, I sterilely prepped the area over the A1 ellyn of the flexor tendon sheath of the Left middle finger. I then injected the flexor tendon sheath with a combination of 1 mL of dexamethasone (4mg/ml), and 1% lidocaine. The patient tolerated the procedure well with no complications. If the patient continues to have locking and catching 4-6 weeks following this injection, they may call to schedule appointment to discuss alternative treatment options 3. Left small finger PIP joint flexion contracture of ~50-60 degrees Hx of small finger trigger [place] [address] De La Rosa 4. History of left carpal tunnel release [place] ~[address] De La Rosa Scribed for Haley Patel MD by Heber Hudson medical van driver, on 04/30/24 at 1:25 PM, EST. Coding Level of Care Code New Pt Level 4 (51393) Diagnoses Carpal tunnel syndrome of right wrist G56.01 CAD (coronary artery disease) I25.10 Trigger middle finger of left hand M65.332 Contracture of joint of finger of left hand M24.542 CPT Codes Fracture Care - Fracture Billing Code: Fracture Billing Code ([id number])
== END 2024-04-30 13:49 | disposition home or self-care (01) ==
PROVIDERS: PCP Internal Medicine; Visit Provider Orthopaedic Surgery
DX: G56.01 Carpal tunnel syndrome, right upper limb (principal); I25.10 Atherosclerotic heart disease of native coronary artery without angina pectoris; M65.332 Trigger finger, left middle finger; M24.542 Contracture, left hand
CPT/HCPCS: 20550; 99204

== ENCOUNTER → 2024-04-30 12:45 | Outpatient (BNVA) | payer OTHER, SELFPAY | PROVIDERS: PCP Internal Medicine; Visit Provider Orthopaedic Surgery | DX: M65.332 Trigger finger, left middle finger (principal); G56.01 Carpal tunnel syndrome, right upper limb; M24.542 Contracture, left hand; I25.10 Atherosclerotic heart disease of native coronary artery without angina pectoris | CPT/HCPCS: 20550; J1100 ==

== ENCOUNTER 2024-05-02 14:12 | Outpatient (REF) | payer OTHER, SELFPAY ==
--- NOTE | ~2024-05-02 | MR_ITS ---
EXAMINATION: MR SHOULDER WITHOUT CONTRAST, RIGHT CLINICAL INFORMATION: Swelling in the right triceps. Decreased range of motion, pain. COMPARISON: None available. TECHNIQUE: MRI of the shoulder without contrast was performed on a high-field scanner. FINDINGS: ROTATOR CUFF: At the supraspinatus tendon insertion, there is a 0.4 x 0.2 cm insertional, interstitial tear of the more posterior fibers without significant tendon retraction. Mild generalized rotator cuff tendinosis. There is a 0.3 x 0.4 cm interstitial partial tear of the subscapularis tendon at the lesser tuberosity insertion. No muscle atrophy or fatty infiltration. BICEPS: Normal. CORACOACROMIAL ARCH: The undersurface of the acromion is flat with no subacromial spur. Moderate acromioclavicular osteoarthritis. LABRUM/CAPSULE: A tear of the glenoid labrum extends from the posterosuperior 10 o'clock position through the superior labrum, anterosuperior subacromial sulcus and anterior labrum to the anteroinferior 5 o'clock position. The anteroinferior labrum is ill-defined and degenerated. Joint capsule is intact. A paralabral cyst is present along the posterior superior glenoid rim, measuring 1.6 x 0.5 x 0.6 cm. GLENOHUMERAL JOINT/MARROW: Small to moderate-sized glenohumeral joint effusion. Moderate-sized glenoid osteophytes, most pronounced inferiorly. At the superomedial aspect of the humeral head, there is a 1.7 x 1.2 cm area of high-grade articular cartilage loss with subtle underlying cortical irregularity. More mild chondral thinning is present medially. Mild nonuniform cartilage loss at the humeral head is most pronounced superiorly. No fracture or malalignment. There is an ill-defined 9 x 8 x 3 mm focus of low signal intensity in the axillary pouch, likely a chondral loose body. MR/MR shoulder RT wo con IMPRESSION: 1. [id number] glenohumeral osteoarthritis with a 1.7 x 1.2 cm area of high-grade articular cartilage loss at the superomedial humeral head. 2. Extensive glenoid labral tear extending from the posterosuperior to the anteroinferior labrum. 3. Small subcentimeter interstitial partial tears of the supraspinatus and subscapularis tendons with mild generalized rotator cuff tendinosis. No appreciable surfacing rotator cuff tears. No muscle atrophy. 4. Moderate acromioclavicular osteoarthritis. 5. Glenohumeral joint effusion with a 9 mm chondral loose body in the axillary pouch.
== END 2024-05-02 14:13 | disposition home or self-care (01) ==
LOC: HO.MRI 14:12
PROVIDERS: PCP Internal Medicine; Visit Provider Physician Assistant
DX: S46.811A Strain of other muscles, fascia and tendons at shoulder and upper arm level, right arm, initial encounter (principal); S43.431A Superior glenoid labrum lesion of right shoulder, initial encounter; M19.011 Primary osteoarthritis, right shoulder; M25.411 Effusion, right shoulder
CPT/HCPCS: 73221

== ENCOUNTER 2024-05-07 11:42 | Outpatient (AMB) | payer OTHER, SELFPAY ==
[2024-05-07 11:46] VITALS: BMI 22.5
--- NOTE | 2024-05-07 11:46 | MHC.OFFVIS ---
Vital Signs 05/07/24 11:46 Height 5 ft 3 in Weight 127 lb BMI 22.5 Intake Visit Reasons: OV-right rotator cuff-MRI review Intake Note: Siri is a 73 year old female who presents today for an MRI follow up of her right shoulder. [place] [facility] [place] The patient states that she has had right shoulder pain since January of this year. She does not recall any specific traumatic event preceding the onset of her pain. 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 She states that her desk might be kind of high and aggravating her shoulder. She has been out of work since 04/15/2024. The patient states that she did have a cortisone injection given into her left shoulder several years ago. She has not had an injection given into her right shoulder. She has taken Tylenol which gives her minimal relief. She does not like taking anti-inflammatory medicines because of prior stomach and colon problems. Allergies adhesive tape Adverse Reaction (Mild, Verified 04/30/24 12:52) Unknown From Augmentin Adverse Reaction (Unknown, Uncoded 04/30/24 12:52) INTOLERANCE Medication List - Last Reconciled 05/07/24 by Tyrone Morales MD aspirin 81 mg PO DAILY cholecalciferol (vitamin D3) 50 mcg PO DAILY lidocaine 5% 1 patch topical DAILY metoprolol succinate ER 50 mg PO DAILY multivitamin with minerals (Hair,Skin and Nails tablet) 1 tab PO DAILY naproxen 500 mg PO BID pantoprazole 40 mg PO DAILY rosuvastatin (Crestor) 40 mg PO DAILY 90 days timolol maleate 0.5% 0 drps ophthalmic (eye) [facility] Medical History Left lower quadrant pain Abdominal wall bulge Hyperlipidemia CAD (coronary artery disease) Osteoporosis Rectal pain Anxiety Abdominal wall hernia Annual physical exam Abdominal pain Hx of breast cancer History of diverticulitis GERD (gastroesophageal reflux disease) History of snoring HTN (hypertension) Surgical History History of breast reconstruction H/O right mastectomy H/O left mastectomy Hx of varicose vein stripping Hx of carpal tunnel repair Hx of hammer toe correction H/O partial resection of colon H/O esophagogastroduodenoscopy Hx of colonoscopy Family History Father Alzheimer's dementia Unknown family medical history Mother CVD (cardiovascular disease) Myocardial infarction Maternal Grandmother Diabetes mellitus Maternal Grandfather No problems noted. Paternal Grandfather No problems noted. Paternal Grandmother No problems noted. Daughter No problems noted. Daughter No problems noted. Brother Substance use disorder Brother No problems noted. Brother No problems noted. Brother No problems noted. Brother Myocardial infarction Brother Throat cancer Myocardial infarction Maternal Aunt Stomach cancer Sister Myocardial infarction Social History Household Members Other:: lives alone, exercise occasionally Housing: House Are you a primary director of critical care to a significant other at home: No Do you presently have visiting nurse or other home services: No Alcohol intake: current Alcohol intake frequency: a few times a month Alcohol type: beer Patient Tobacco Use Status: Former Tobacco user e-Cigarette/Vaping Use: Never Used service: No Current occupational status: employed Physical Exam Vital Signs: BMI result Body Mass Index 22.5 Extrem Other: Right shoulder examination shows decreased active and passive range of motion when compared to her left shoulder, pain with range of motion, tenderness over her acromioclavicular joint Office Procedures Joint Injection/Drain Joint Injection/Drain Primary Site: right shoulder Prep: site was prepped using aseptic technique Injected: 40 mg of, DepoMedrol and 1% plain lidocaine Procedure: The patient tolerated the procedure well Coding 64050 - Large joint Procedure code (CPT) selection complete Results Reviewed Results Reviewed: MRI of the patient's right shoulder shows acromioclavicular joint arthritis, a type 2 acromion, mild to moderate glenohumeral joint degenerative changes, no rotator cuff tearing Assessment & Plan Assessment & Plan (1) Right shoulder pain: Code(s): M25.511 - Pain in right shoulder Category: Medical Plan Ms. García presents with right shoulder pain due to impingement syndrome and arthritis within her glenohumeral joint and acromioclavicular joint as well as possible early adhesive capsulitis. I had a lengthy discussion with the patient regarding the treatment options. The risks and benefits of a right shoulder cortisone injection were discussed at length with the patient. The patient wished to proceed. She tolerated the injection well. She will continue with her stretching exercises to prevent worsening of her stiffness. The patient has been out of work because of her shoulder pain since 04/15/2024. From my standpoint she can return to work once her pain level allows her to do so. If she does not get lasting relief from the cortisone injection therapy we will further discuss the risks and benefits of arthroscopic surgery. Feel free to call me at any time should questions regarding her orthopedic management arise. I spent 20 minutes in reviewing the patient's records and imaging studies, seeing the patient and documenting in the medical record. Orders: Orders AMB Joint Injection/Aspiration Today M25.511 - Pain in right shoulder Coding Level of Care Code New Pt Level 3 (29200) Diagnoses Right shoulder pain M25.511 CPT Codes Coding - 29087 Large joint: 65919 - Large joint ([id number])
== END 2024-05-07 13:39 | disposition home or self-care (01) ==
PROVIDERS: PCP Internal Medicine; Visit Provider Orthopaedic Surgery
DX: M25.511 Pain in right shoulder (principal)
CPT/HCPCS: 20610; 99203

== ENCOUNTER → 2024-05-07 11:42 | Outpatient (BNVA) | payer OTHER, SELFPAY | PROVIDERS: PCP Internal Medicine; Visit Provider Orthopaedic Surgery | DX: M75.41 Impingement syndrome of right shoulder (principal); M19.011 Primary osteoarthritis, right shoulder | CPT/HCPCS: 20610; 99202; J1010 ==

== ENCOUNTER 2024-05-17 11:37 | Outpatient (AMB) | payer OTHER, SELFPAY ==
--- NOTE | 2024-05-17 12:15 | MHC.OFFVIS ---
Intake Visit Reasons: OV, 2nd opinion R RTC-MRI review Intake Note: Siri is a 73 year old female who presents today for a second opinion of her right shoulder. Patient denies any direct injury to the right arm/shoulder but she does feel that her desk at work is high and is aggravating the shoulder. Does not take NSAIDs as they upset her stomach but does take tylenol with minimal releif. She has been out of work since 04/15/24. She had an MRI done of the right shoulder at [facility] and reviewed that results with Dr. Morales who administered an injection and instructed patient to follow up if the injection was not helpful to discuss . Allergies adhesive tape Adverse Reaction (Mild, Verified 04/30/24 12:52) Unknown From Augmentin Adverse Reaction (Unknown, Uncoded 04/30/24 12:52) INTOLERANCE HPI HPI OV, 2nd opinion R RTC-MRI review: Details: Siri is a 73 year old female who presents today for a second opinion of her right shoulder. Patient denies any direct injury to the right arm/shoulder but she does feel that her desk at work is high and is aggravating the shoulder. Does not take NSAIDs as they upset her stomach but does take tylenol with minimal releif. She has been out of work since 04/15/24. She had an MRI done of the right shoulder at [facility] and reviewed that results with Dr. Morales who administered an injection and instructed patient to follow up if the injection was not helpful to discuss . This is a work injury. [facility] Medical History Left lower quadrant pain Abdominal wall bulge Hyperlipidemia CAD (coronary artery disease) Osteoporosis Rectal pain Anxiety Abdominal wall hernia Annual physical exam Abdominal pain Hx of breast cancer History of diverticulitis GERD (gastroesophageal reflux disease) History of snoring HTN (hypertension) Surgical History History of breast reconstruction H/O right mastectomy H/O left mastectomy Hx of varicose vein stripping Hx of carpal tunnel repair Hx of hammer toe correction H/O partial resection of colon H/O esophagogastroduodenoscopy Hx of colonoscopy Family History Father Alzheimer's dementia Unknown family medical history Mother CVD (cardiovascular disease) Myocardial infarction Maternal Grandmother Diabetes mellitus Maternal Grandfather No problems noted. Paternal Grandfather No problems noted. Paternal Grandmother No problems noted. Daughter No problems noted. Daughter No problems noted. Brother Substance use disorder Brother No problems noted. Brother No problems noted. Brother No problems noted. Brother Myocardial infarction Brother Throat cancer Myocardial infarction Maternal Aunt Stomach cancer Sister Myocardial infarction Social History Household Members Other:: lives alone, exercise occasionally Housing: House Are you a primary physician locums urgent care to a significant other at home: No Do you presently have visiting nurse or other home services: No Alcohol intake: current Alcohol intake frequency: a few times a month Alcohol type: beer Patient Tobacco Use Status: Former Tobacco user e-Cigarette/Vaping Use: Never Used service: No Current occupational status: employed Physical Exam Extrem Other: neg EC + H/N/OB Results Reviewed Results Reviewed: I personally reviewed the MR images. 1. Lrkt-ju-xvuzmdeu glenohumeral osteoarthritis with a 1.7 x 1.2 cm area of high-grade articular cartilage loss at the superomedial humeral head. 2. Extensive glenoid labral tear extending from the posterosuperior to the anteroinferior labrum. 3. Small subcentimeter interstitial partial tears of the supraspinatus and subscapularis tendons with mild generalized rotator cuff tendinosis. No appreciable surfacing rotator cuff tears. No muscle atrophy. 4. Moderate acromioclavicular osteoarthritis. 5. Glenohumeral joint effusion with a 9 mm chondral loose body in the axillary pouch. 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 She may continue work from at home with no lifting. She will return to see me in 6 weeks. 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
== END 2024-05-20 15:39 | disposition home or self-care (01) ==
PROVIDERS: PCP Internal Medicine; Visit Provider Orthopaedic Surgery
DX: M24.111 Other articular cartilage disorders, right shoulder (principal)
CPT/HCPCS: 99213

== ENCOUNTER → 2024-05-17 11:37 | Outpatient (BNVA) | payer OTHER, SELFPAY | PROVIDERS: PCP Internal Medicine; Visit Provider Orthopaedic Surgery | DX: S43.431A Superior glenoid labrum lesion of right shoulder, initial encounter (principal); M24.111 Other articular cartilage disorders, right shoulder; M19.011 Primary osteoarthritis, right shoulder; X58.XXXA Exposure to other specified factors, initial encounter | CPT/HCPCS: 99212 ==

== ENCOUNTER 2024-06-03 11:51 | Outpatient (AMB) | payer OTHER, SELFPAY ==
--- NOTE | 2024-06-03 11:51 | A.OFFVIS_ITS ---
Intake Visit Reasons: GERD, Nausea, ?? Barretts? Intake Note: Siri presents in the office as a follow up. CC: She states that when her other appt got cancelled she was having chest pains - she states that it was told it was not her heart but she still has the pains at times. She is on pantoprazole. 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 Barretts?: Details: 73 yr old patient with hx of b/l mastectomy, partial colectomy, being called for GERD type sx RECAP: She has been sx for a long time she has chest pain , saw cardiology and not felt to be cardiac, has mild CAD on CT she doesn;t feel good generally she has noted epigastric pain, she has stopped eating spicey food can;t pinpoint anything that makes it happen she mentioned weird bowel habits in the morning, normal, then loose then normal again she had incomplete evacuation for 1 year she has stool urgency not that happen tired all the time for at least 1 yr she snores per grand daughter she had morning nausea last colonscopy: 2015-- diverticulosis no masses EGD 2016-- no ulcers REPEAT EGD/COLO: 06/2023 Endoscopy Findings: mild esophagitis Colonoscopy Findings: internal hemorrhoids diverticular disease INTERIM: she was having chest pains, non cardiac she got a new supply of pantoprazole and has helped she can have regurg with bending sometimes no nausea or vomiting bowel habit is abnormal, going several times to bathroom -has incomplete evacuation no blood in stool EXAM: GENERAL: The patient is well developed and nontoxic. A/P: 1/ Non cardiac chest pain, could be spasm or GERD related 2/ abn bowel habit ?rectocele Plan: 1/ option of increasing PPI or wahl, or stopping collagen supplements, she will stop collagen first and if ongoing sx then increase PPI to BID 2/ offered Mr defecoghraphy vs high fiber diet supplemented with metamucil, she will try diet first [facility] Medical History Left lower quadrant pain Abdominal wall bulge Hyperlipidemia CAD (coronary artery disease) Osteoporosis Rectal pain Anxiety Abdominal wall hernia Annual physical exam Abdominal pain Hx of breast cancer History of diverticulitis GERD (gastroesophageal reflux disease) History of snoring HTN (hypertension) Surgical History History of breast reconstruction H/O right mastectomy H/O left mastectomy Hx of varicose vein stripping Hx of carpal tunnel repair Hx of hammer toe correction H/O partial resection of colon H/O esophagogastroduodenoscopy Hx of colonoscopy Family History Father Alzheimer's dementia Unknown family medical history Mother CVD (cardiovascular disease) Myocardial infarction Maternal Grandmother Diabetes mellitus Maternal Grandfather No problems noted. Paternal Grandfather No problems noted. Paternal Grandmother No problems noted. Daughter No problems noted. Daughter No problems noted. Brother Substance use disorder Brother No problems noted. Brother No problems noted. Brother No problems noted. Brother Myocardial infarction Brother Throat cancer Myocardial infarction Maternal Aunt Stomach cancer Sister Myocardial infarction Social History Household Members Other:: lives alone, exercise occasionally Housing: House Are you a primary customer care representative to a significant other at home: No Do you presently have visiting nurse or other home services: No Alcohol intake: current Alcohol intake frequency: a few times a month Alcohol type: beer Patient Tobacco Use Status: Former Tobacco user e-Cigarette/Vaping Use: Never Used service: No Current occupational status: employed Telehealth Telehealth Telehealth Platform: [facility] Location of provider rendering services: practice address Location of patient: address on file Patient Identification confirmed using: Name, : Yes Telehealth method: video Patient verbally consented to treatment: Yes Patient verbally consented to billing insurance company: Yes Patient informed of any privacy concerns related to visit: Yes Minutes spent on Phone/Video with Pt.: 14 Assessment & Plan Assessment & Plan (1) GERD (gastroesophageal reflux disease): Code(s): K21.9 - Gastro-esophageal reflux disease without esophagitis Category: Medical Qualifiers: Esophagitis presence: esophagitis presence not specified Qualified Code(s): K21.9 - Gastro-esophageal reflux disease without esophagitis Plan: see above Medications: Changed From pantoprazole 40 mg PO DAILY 90 tabs 1RF To pantoprazole 40 mg PO BID 90 tabs 1RF Coding Level of Care Code Tele Est Pt Level 3 (84122) Diagnoses Gastroesophageal reflux disease, unspecified whether esophagitis present K21.9 Esophagitis presence: esophagitis presence not specified
== END 2024-06-03 12:55 | disposition home or self-care (01) ==
LOC: HO.HGI 11:51
PROVIDERS: PCP Internal Medicine; Visit Provider Internal Medicine Gastroenterology
DX: K21.9 Gastro-esophageal reflux disease without esophagitis (principal)
CPT/HCPCS: 99213

== ENCOUNTER → 2024-06-03 11:51 | Outpatient (BNVA) | payer OTHER, SELFPAY | PROVIDERS: PCP Internal Medicine; Visit Provider Internal Medicine Gastroenterology ==

== ENCOUNTER 2024-06-07 08:10 | Outpatient (AMB) | payer OTHER, SELFPAY ==
--- NOTE | 2024-06-07 08:36 | MHC.OFFWIV ---
Intake Vital Signs 06/07/24 08:37 Weight 160 lb BP 150/80 H Blood Pressure Location Lt brachial Position Sitting Pulse 82 Pulse Source Pulse Oximeter Pulse Oximetry (%) 97 Oxygen Delivery Method Room Air Intake Visit Reasons: EP diverticulitis Intake Note: Pt here for severe abdominal pain,diverticulitis. hx of colon resection. Patient Tobacco Use Status: Former Tobacco user Allergies adhesive tape Adverse Reaction (Mild, Verified 06/07/24 08:37) Unknown From Augmentin Adverse Reaction (Unknown, Uncoded 06/07/24 08:37) INTOLERANCE Do you need a note to return to daycare/school/sports/work: No HPI HPI Comments History of Present Illness Details Ptis a 73 yo female c/o lower abdominal pn and ? of diverticulitis. She also has diarrhea with a small amount of blood and black spots in her stool. She denies fevers. She has a hx of diverticulosis and a colon resection bc of it. She denies any fevers. She describes the abdominal pain as going from the left side to the right side of her lower abdomen, she states usually when she has diverticulitis it is always on the left side. She states she does have an appendix and gallbladder. [facility]END[facility] S[facility] TO [facility] Medical History Left lower quadrant pain Abdominal wall bulge Hyperlipidemia CAD (coronary artery disease) Osteoporosis Rectal pain Anxiety Abdominal wall hernia Annual physical exam Abdominal pain Hx of breast cancer History of diverticulitis GERD (gastroesophageal reflux disease) History of snoring HTN (hypertension) Surgical History History of breast reconstruction H/O right mastectomy H/O left mastectomy Hx of varicose vein stripping Hx of carpal tunnel repair Hx of hammer toe correction H/O partial resection of colon H/O esophagogastroduodenoscopy Hx of colonoscopy Family History Father Alzheimer's dementia Unknown family medical history Mother CVD (cardiovascular disease) Myocardial infarction Maternal Grandmother Diabetes mellitus Maternal Grandfather No problems noted. Paternal Grandfather No problems noted. Paternal Grandmother No problems noted. Daughter No problems noted. Daughter No problems noted. Brother Substance use disorder Brother No problems noted. Brother No problems noted. Brother No problems noted. Brother Myocardial infarction Brother Throat cancer Myocardial infarction Maternal Aunt Stomach cancer Sister Myocardial infarction Social History Household Members Other:: lives alone, exercise occasionally Housing: House Are you a primary associate director career services to a significant other at home: No Do you presently have visiting nurse or other home services: No Alcohol intake: current Alcohol intake frequency: a few times a month Alcohol type: beer Patient Tobacco Use Status: Former Tobacco user e-Cigarette/Vaping Use: Never Used service: No Current occupational status: employed Review of Systems Const All systems reviewed & are unremarkable except as noted in HPI and below Physical Exam Vital Signs: Last Vital Signs Pulse 82 06/07/24 08:37 BP 150/80 H 06/07/24 08:37 Pulse Ox 97 06/07/24 08:37 Oxygen Delivery Method Room Air 06/07/24 08:37 Const General: cooperative, healthy appearing, comfortable, no acute distress and well developed Orientation/consciousness: patient oriented x3 Limitations: no limitations HEENT Head: Yes normal to inspection Eyes General: appearance normal, both eyes and all related structures Neck Neck: Yes normal visual inspection and Yes full ROM Resp Effort & Inspection: normal respiratory effort and able to speak in complete sentences GI Inspection: Yes normal to inspection Palpation (GI): Soft to palpation and Tenderness to palpation present (GI) in the LLQ and in the RLQ; not periumbilically, Chavez's sign negative and with no rebound tenderness Skin General skin exam: no rashes or lesions noted Neuro General: patient oriented x3 Extrem General: Yes normal to inspection Assessment & Plan Assessment & Plan (1) Acute diverticulitis: Code(s): K57.92 - Diverticulitis of intestine, part unspecified, without perforation or abscess without bleeding Plan: Will treat with antibiotics- gave red flag warning signs on when to go to the ED Plan see above Medications: New metronidazole 500 mg PO Q12H 14 tabs 0RF levofloxacin 750 mg PO Q24H 7 tabs 0RF fluconazole may repeat second dose 72 hrs after first dose if symptoms persist 150 mg PO Q3D 2 tabs 0RF 2 doses Coding Level of Care Code Est Pt Level 4 (49141) Diagnoses Acute diverticulitis K57.92
[2024-06-07 08:37] VITALS: BP 150/80; PULSE 82; O2SAT 97
== END 2024-06-07 09:08 | disposition home or self-care (01) ==
PROVIDERS: PCP Internal Medicine; Visit Provider Physician Assistant
DX: K57.92 Diverticulitis of intestine, part unspecified, without perforation or abscess without bleeding (principal)
CPT/HCPCS: 99214

== ENCOUNTER 2024-07-24 14:37 | Outpatient (REF) | payer OTHER, SELFPAY ==
[2024-07-24 16:16] LABS: MANUAL DIFF FLAG NO
[2024-07-24 16:27] LABS: Appearance Urine Clear; Color Urine Yellow; Glucose Urine UA Negative (Negative); Leukocyte Esterase Urine Negative (Negative); Nitrite Urine Negative (Negative); PH 5.5 (5.0-9.0); Urine Blood Negative (Negative); Urine Ketones Negative (Negative); Urine Protein Negative (Neg-Trace)
[2024-07-24 16:27] LABS: Basophils Absolute Auto 0.1 X10*3/uL (0.0-0.2); Basophils Percent Auto 0.9 % (0-2); Eosinophils Absolute Auto 0.1 X10*3/uL (0.0-0.4); Eosinophils Percent Auto 1.8 % (0-4); Hematocrit 44.6 % (37.0-47.0); Hemoglobin 14.9 g/dl (12.0-16.0); Imm Gran Abs Auto 0.01 X10*3/uL (0.00-0.03); Imm Gran Pct Auto 0.1 % (0.0-0.4); Lymphocytes Absolute Auto 2.9 X10*3/uL (1.2-4.9); Mean Corpuscular HGB Conc 33.4 g/dl (31.0-35.0); Mean Corpuscular Hemoglobin 31.1 pg (27.0-33.0); Mean Corpuscular Volume 93.1 fL (80.0-98.0); Mean Platelet Volume 11.2 fL (9.4-12.3); Monocytes Absolute Auto 0.7 X10*3/uL (0.1-1.2); Monocytes Percent Auto 9.1 % (2-11); Neutrophils Absolute Auto 4.1 x10*3/uL (2.0-8.3); Neutrophils Percent Auto 51.1 % (45-73); Platelet Count 261 X10*3/uL (160-400); Red Blood Count 4.79 X10*6/uL (4.20-5.50); Red Cell Distribution Width 12.8 % (11.0-16.0); White Blood Count 7.9 X10*3/uL (4.8-10.8)
[2024-07-24 16:42] LABS: Alanine Aminotransferase 21 U/L (0-31); Albumin Level 4.1 g/dL (3.5-5.0); Alkaline Phosphatase 62 U/L (39-117); Anion Gap 11 (12-20); Aspartate Amino Transferase 21 U/L (5-31); Blood Urea Nitrogen 13 mg/dL (9-16); Calcium 9.7 mg/dL (8.4-10.2); Carbon Dioxide 26 mmol/L (22-29); Chloride 108 mmol/L (96-108); Estimated Glomerular Filt Rate > 60; Glucose Random 119 mg/dL (60-115); Potassium 4.1 mmol/L (3.3-5.1); Sodium 141 mmol/L (135-145); Total Protein 6.9 g/dL (6.5-8.0)
== END 2024-07-24 14:38 | disposition home or self-care (01) ==
LOC: HO.HMGCLDS 14:37
PROVIDERS: PCP Internal Medicine; Visit Provider Physician Assistant Medical
DX: R10.9 Unspecified abdominal pain (principal)
CPT/HCPCS: 36415; 80053; 81003; 85025

== ENCOUNTER 2024-08-08 06:49 | Emergency (ER) | payer OTHER, SELFPAY ==
--- NOTE | ~2024-08-08 | XR_ITS ---
EXAMINATION: XR CHEST CLINICAL INFORMATION: Chest pressure COMPARISON: Chest radiograph 09/28/2022 TECHNIQUE: Frontal view of the chest was obtained. FINDINGS: Surgical clips overlie the lower chest bilaterally. Overlying EKG wires. Lungs are well-expanded. No focal consolidation. No pleural effusions or pneumothorax. The cardiomediastinal silhouette is within normal limits. No acute osseous abnormality. XR/XR chest 1V IMPRESSION: No acute pulmonary disease. Electronically signed by: Jam Ladd MD 08/08/2024 08:24 AM EDT
--- NOTE | 2024-08-08 06:53 | ECG_ITS ---
Test Reason : CHEST PAIN Blood Pressure : / mmHG Vent. Rate : 092 BPM Atrial Rate : 092 BPM P-R Int : 120 ms QRS Dur : 088 ms QT Int : 354 ms P-R-T Axes : 034 015 066 degrees QTc Int : 437 ms Normal sinus rhythm Nonspecific ST abnormality Abnormal ECG When compared with ECG of 28-SEP-2022 17:03, No significant change was found Referred By: Generic ED Physician Electronically Signed By:ADRIENNE NASH
[2024-08-08 06:55] VITALS: BP 156/74; PULSE 83; RESP 16; TEMP 36.9; O2SAT 97; BMI 29.6
--- NOTE | 2024-08-08 06:59 | ED.CHESTPAIN ---
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 She notes recent daily nausea but it passes and she has not had weight loss or change in stools. She felt weird today like her throat was closing. It did not last long but with her history she became nervous. The pain was not burning and she did not vomit. She has not traveled or had any recent procedures. In the past her GI doctor did mention esophageal spasms. MD complaint: chest pain Pertinent past history: coronary artery disease Onset (ago): minute(s) (20) Timing of current episode: now resolved Prior episodes: Yes Onset: other (bending over) Pain location: substernal Pain radiation: none Severity: mild Quality: other (pressure) Relieving factors: nothing Exacerbating factors: nothing Associated symptoms: other (felt like her throat was closing) Treatment prior to arrival: none Related Data Home Medications ?Medication ?Instructions ?Recorded ?Confirmed timolol maleate 0.5 % eye drops 0 drp ophthalmic (eye) QAM 10/20/22 05/07/24 ascorbic acid 30 mg-collagen, tab PO 06/03/24 hydrolyzed 833.3 mg tablet (Collagen Skin Renewal) cetirizine 10 mg tablet 10 mg PO DAILY 06/03/24 multivitamin with calcium carb and tab PO 06/03/24 iron tablet Previous Rx's ?Medication ?Instructions ?Recorded cholecalciferol (vitamin D3) 50 50 mcg PO DAILY #90 caps 08/10/22 mcg (2,000 unit) capsule aspirin 81 mg tablet,delayed 81 mg PO DAILY #90 tabs 12/07/23 release metoprolol succinate 50 mg 50 mg PO DAILY #90 tabs 03/06/24 tablet,extended release 24 hr lidocaine 5 % topical patch 1 patch topical DAILY #15 ea 04/16/24 naproxen 500 mg tablet 500 mg PO BID #28 tabs 04/16/24 rosuvastatin 40 mg tablet (Crestor) 40 mg PO DAILY 90 days #90 tabs 05/31/24 pantoprazole 40 mg tablet,delayed 40 mg PO BID #90 tabs 06/03/24 release fluconazole 150 mg tablet 150 mg PO Q3D 2 doses #2 tabs 06/07/24 levofloxacin 750 mg tablet 750 mg PO Q24H #7 tabs 06/07/24 metronidazole 500 mg tablet 500 mg PO Q12H #14 tabs 06/07/24 Allergies Allergy/AdvReac Type Severity Reaction Status Date / Time adhesive tape AdvReac Mild Unknown Verified 08/08/24 06:56 From Augmentin AdvReac Unknown INTOLERANCE Uncoded 08/08/24 06:56 Review of Systems Review of Systems: Constitutional : No Weight loss, No Fever, No Chills ENT/Mouth : No sore throat, No Rhinorrhea Eyes: No Eye Pain, No Swelling Cardiovascular : pos Chest Pain, no SOB, no Dyspnea on Exertion, No Orthopnea, No Edema, No Palpitations Respiratory : No Cough, No Sputum Gastrointestinal : pos Nausea, No Vomiting, No Diarrhea, No abdominal Pain, No Hematochezia, No Melena Genitourinary : No Dysuria, No Urinary Frequency Musculoskeletal : No joint pain, No Myalgias, No Joint Swelling Skin : No Skin Lesions, No rash Neuro : No Weakness, No Numbness, No Dizziness, No Headache All other systems reviewed and are negative [facility] Past Medical History Attestation statement: The following information was validated with the patient. Source: old records reviewed Medical History Left lower quadrant pain Abdominal wall bulge Hyperlipidemia CAD (coronary artery disease) Osteoporosis Rectal pain Anxiety Abdominal wall hernia Annual physical exam Abdominal pain Hx of breast cancer History of diverticulitis GERD (gastroesophageal reflux disease) History of snoring HTN (hypertension) Surgical History History of breast reconstruction H/O right mastectomy H/O left mastectomy Hx of varicose vein stripping Hx of carpal tunnel repair Hx of hammer toe correction H/O partial resection of colon H/O esophagogastroduodenoscopy Hx of colonoscopy Family History Family History Father Alzheimer's dementia Unknown family medical history Mother CVD (cardiovascular disease) Myocardial infarction Maternal Grandmother Diabetes mellitus Maternal Grandfather No problems noted. Paternal Grandfather No problems noted. Paternal Grandmother No problems noted. Daughter No problems noted. Daughter No problems noted. Brother Substance use disorder Brother No problems noted. Brother No problems noted. Brother No problems noted. Brother Myocardial infarction Brother Throat cancer Myocardial infarction Maternal Aunt Stomach cancer Sister Myocardial infarction Social History Social History Household Members Other:: lives alone, exercise occasionally Housing: House Are you a primary client care consultant to a significant other at home: No Do you presently have visiting nurse or other home services: No Alcohol intake: current Alcohol intake frequency: a few times a month Alcohol type: beer Patient Tobacco Use Status: Former Tobacco user Smoked in Last 30 Days: No e-Cigarette/Vaping Use: Never Used Use of substances other than those prescribed or required for medical reasons: No Advance Directives: No Advance Directives Information Provided: Yes Do you have a plan to hurt others: No Plan service: No Current occupational status: employed Physical Exam Vital Signs: Vital Signs: Last Vital Signs Temp 98.2 F 08/08/24 07:50 Pulse 77 08/08/24 10:00 Resp 12 08/08/24 10:00 BP 116/71 08/08/24 10:00 Pulse Ox 96 08/08/24 10:00 O2 Del Method Room Air 08/08/24 10:00 BMI result Body Mass Index 29.6 Appearance: Alert. Oriented X3. No acute distress. Eyes: Pupils equal, round and reactive to light. ENT: Pharynx normal. Neck: Normal inspection. Neck supple. CVS: Normal heart rate and rhythm. Pulses normal. Respiratory: No respiratory distress. Breath sounds normal. Abdomen: Soft and nontender. Skin: Skin warm and dry. Normal skin color. Normal skin turgor. Extremities: No lower extremity edema. No calf ttp Neuro: Oriented X 3. No motor deficit. No sensory deficit. Medical Decision Making Medical Decision Making MDM Narrative: 73 yo female with PMH of diverticulitis, lymphedema, Fe deficiency anemia, CAD, PAD, GERD, anxiety, HTN, HLD, not on blood thinners here with c/o atypical chest pressure after bending forward without dyspnea it does seem more GI related. She has had recent nausea x 1 month that passes but no weight loss or change in stools. At this time symptoms gone but given history will obtain troponin x 2, CXR and monitor. Suspect she needs to follow up with GI could be hiatal hernia. Differential Diagnosis Differential Diagnoses: The differential diagnosis associated with the presentation includes atypical chest pain, GERD, esophageal spasms resolved doubt VTE - no hypoxia or tachycardia resolved and pulses intact doubt dissection Admission/Observation Consideration of admission/observation: Escalation of care including admission/observation considered normal labs and 3 trop negative with nonischemic EKG stable for DC Lab Data MDM Lab Attestation statement: I reviewed the patient's lab results. 08/08/24 07:49 08/08/24 08:39 Labs: Lab Results 08/08/24 08/08/24 Range/Units 07:49 08:39 WBC 7.4 (4.8-10.8) X10*3/uL RBC 4.88 (4.20-5.50) X10*6/uL Hgb 15.1 (12.0-16.0) g/dl Hct 44.0 (37.0-47.0) % MCV 90.2 (80.0-98.0) fL MCH 30.9 (27.0-33.0) pg MCHC 34.3 (31.0-35.0) g/dl RDW 12.7 (11.0-16.0) % Plt Count 260 (160-400) X10*3/uL MPV 10.4 (9.4-12.3) fL Immature Gran % (Auto) 0.3 (0.0-0.4) % Neut % (Auto) 65.8 (45-73) % Lymph % (Auto) 22.2 (20-40) % [place] % (Auto) 9.3 (2-11) % Eos % (Auto) 1.6 (0-4) % Baso % (Auto) 0.8 (0-2) % Lymph # (Auto) 1.7 (1.2-4.9) X10*3/uL [place] # (Auto) 0.7 (0.1-1.2) X10*3/uL Eos # (Auto) 0.1 (0.0-0.4) X10*3/uL Baso # (Auto) 0.1 (0.0-0.2) X10*3/uL Abs Immat Gran (auto) 0.02 (0.00-0.03) X10*3/uL Absolute Neuts (auto) 4.9 (2.0-8.3) x10*3/uL Absolute Nucleated RBC 0.000 (0.0-0.012) X10*3/uL Nucleated RBC % (auto) 0.0 (0.0-0.2) /100WBC PT 10.9 (10.9-12.4) SEC INR 0.9 (0.9-1.1) Sodium 143 (135-145) mmol/L Potassium 4.5 (3.3-5.1) mmol/L Chloride 110 H (96-108) mmol/L Carbon Dioxide 26 (22-29) mmol/L Anion Gap 12 (12-20) BUN 15 (9-16) mg/dL Creatinine 0.68 (0.5-1.4) mg/dL Estim Creat Clear Calc 74.0 Estimated GFR > 60 Random Glucose 116 H (60-115) mg/dL Calcium 9.7 (8.4-10.2) mg/dL Troponin I High Sens < 2.7 < 2.7 (<3.5-17.0) ng/L TSH 0.91 (0.32-4.0) uIU/mL Urine Color Yellow Urine Appearance Clear Urine pH 6.0 (5.0-9.0) Ur Specific [place] <= 1.005 (1.005-1.025) Urine Protein Negative (Neg-Trace) mg/dL Urine Glucose (UA) Negative (Negative) mg/dL Urine Ketones Negative (Negative) mg/dL Urine Blood Negative (Negative) Urine Nitrite Negative (Negative) Ur Leukocyte Esterase Negative (Negative) Independent Interpretation I performed an independent interpretation of an: EKG and Plain X-Ray (normal) Interpretation: Rate: 92 Rhythm: NSR [place]: normal Normal P waves. Normal [place]. Normal QRS complex. ST T wave : no VITALIY, nonspecific ST T wave changes lateral leads qTC: 437 prior studies: no acute ischemia The study has been interpreted contemporaneously by me. . Radiology Impression Discussion of test interpretation with radiology: I have reviewed the radiologist's reading. External Record Review External record reviewed: Inpatient record and Office record Discharge Plan Discharge Clinical Impression: Atypical chest pain Patient Disposition: Home, Self-Care Instructions: Chest Pain (ED) Additional Instructions: labs and CXR normal today no acute findings on EKG and 3 troponin tests are negative suspect more GI related pathology return for any worsening symptoms or concerns please follow up with your primary care doctor Prescriptions: No Action cholecalciferol (vitamin D3) 50 mcg (2,000 unit) capsule 50 mcg PO DAILY Qty: 90 3RF aspirin 81 mg tablet,delayed release (DR/EC) 81 mg PO DAILY Qty: 90 3RF metoprolol succinate 50 mg tablet extended release 24 hr 50 mg PO DAILY Qty: 90 3RF rosuvastatin [Crestor] 40 mg tablet 40 mg PO DAILY 90 Days Qty: 90 3RF naproxen 500 mg tablet 500 mg PO BID Qty: 28 0RF lidocaine 5 % adhesive patch,medicated 1 patch topical DAILY Qty: 15 0RF Rx Instructions: leave on most painful area for up to 12 hrs metronidazole 500 mg tablet 500 mg PO Q12H Qty: 14 0RF levofloxacin 750 mg tablet 750 mg PO Q24H Qty: 7 0RF fluconazole 150 mg tablet 150 mg PO Q3D Qty: 2 0RF Rx Instructions: may repeat second dose 72 hrs after first dose if symptoms persist timolol maleate 0.5 % drops 0 drp ophthalmic (eye) QAM cetirizine 10 mg tablet 10 mg PO DAILY multivitamin-calcium carb-iron Tablet PO Collagen Skin Renewal 30-833.3 mg tablet PO pantoprazole 40 mg tablet,delayed release (DR/EC) 40 mg PO BID Qty: 90 1RF Stand Alone Forms: Work/School Release Print Language: Greek
[2024-08-08 07:50] VITALS: BP 139/61; PULSE 79; RESP 18; TEMP 36.8; O2SAT 96
[2024-08-08 07:58] LABS: MANUAL DIFF FLAG NO
[2024-08-08 08:00] VITALS: BP 127/76; PULSE 81; RESP 11; O2SAT 95
[2024-08-08 08:00] LABS: Basophils Absolute Auto 0.1 X10*3/uL (0.0-0.2); Basophils Percent Auto 0.8 % (0-2); Eosinophils Absolute Auto 0.1 X10*3/uL (0.0-0.4); Eosinophils Percent Auto 1.6 % (0-4); Hemoglobin 15.1 g/dl (12.0-16.0); Imm Gran Abs Auto 0.02 X10*3/uL (0.00-0.03); Imm Gran Pct Auto 0.3 % (0.0-0.4); Lymphocytes Absolute Auto 1.7 X10*3/uL (1.2-4.9); Lymphocytes Percent Auto 22.2 % (20-40); Mean Corpuscular HGB Conc 34.3 g/dl (31.0-35.0); Mean Corpuscular Hemoglobin 30.9 pg (27.0-33.0); Mean Corpuscular Volume 90.2 fL (80.0-98.0); Mean Platelet Volume 10.4 fL (9.4-12.3); Monocytes Absolute Auto 0.7 X10*3/uL (0.1-1.2); Monocytes Percent Auto 9.3 % (2-11); Neutrophils Absolute Auto 4.9 x10*3/uL (2.0-8.3); Neutrophils Percent Auto 65.8 % (45-73); Platelet Count 260 X10*3/uL (160-400); Red Blood Count 4.88 X10*6/uL (4.20-5.50); Red Cell Distribution Width 12.7 % (11.0-16.0); White Blood Count 7.4 X10*3/uL (4.8-10.8)
[2024-08-08 08:06] LABS: INTERNATIONAL NORM RATIO 0.9 (0.9-1.1); Prothrombin Time 10.9 SEC (10.9-12.4)
[2024-08-08 08:20] LABS: Troponin-I High Sensitivity < 2.7 ng/L (<3.5-17.0)
[2024-08-08 08:34] LABS: TSH reflex Free T4 0.91 uIU/mL (0.32-4.0)
[2024-08-08 08:44] LABS: Appearance Urine Clear; Color Urine Yellow; Glucose Urine UA Negative (Negative); Leukocyte Esterase Urine Negative (Negative); Nitrite Urine Negative (Negative); Specific Gravity - Urine <= 1.005 (1.005-1.025); Urine Blood Negative (Negative); Urine Ketones Negative (Negative); Urine Protein Negative (Neg-Trace)
[2024-08-08 08:59] LABS: Anion Gap 12 (12-20); Blood Urea Nitrogen 15 mg/dL (9-16); Calcium 9.7 mg/dL (8.4-10.2); Carbon Dioxide 26 mmol/L (22-29); Chloride 110 mmol/L (96-108); Estimated Glomerular Filt Rate > 60; Glucose Random 116 mg/dL (60-115); Potassium 4.5 mmol/L (3.3-5.1); Sodium 143 mmol/L (135-145)
[2024-08-08 09:07] LABS: Troponin-I High Sensitivity < 2.7 ng/L (<3.5-17.0)
[2024-08-08 10:00] VITALS: BP 116/71; PULSE 77; RESP 12; O2SAT 96
[2024-08-08 11:33] LABS: Troponin-I High Sensitivity < 2.7 ng/L (<3.5-17.0)
[2024-08-08 12:00] VITALS: BP 157/77; PULSE 100; RESP 15; TEMP 36.7; O2SAT 97
[2024-08-08 12:15] VITALS: BP 157/77; PULSE 100; RESP 15; TEMP 36.7; O2SAT 97
== END 2024-08-08 12:17 | disposition home or self-care (01) ==
PROVIDERS: Emergency Provider Emergency Medicine; PCP Internal Medicine
DX: R07.89 Other chest pain (principal); R11.0 Nausea; I10 Essential (primary) hypertension; E78.5 Hyperlipidemia, unspecified; K21.9 Gastro-esophageal reflux disease without esophagitis; Z85.3 Personal history of malignant neoplasm of breast; Z79.899 Other long term (current) drug therapy; Z79.82 Long term (current) use of aspirin; Z79.02 Long term (current) use of antithrombotics/antiplatelets
CPT/HCPCS: 36415; 71045; 80048; 81003; 84443; 84484; 85025; 85610; 93005; 99283; 99285

== ENCOUNTER 2024-08-16 09:53 | Outpatient (AMB) | payer OTHER, SELFPAY ==
--- NOTE | 2024-08-16 09:54 | A.OFFVIS_ITS ---
Vital Signs 08/16/24 09:55 Weight 164 lb 0.383 oz BP 159/69 H Blood Pressure Location Rt brachial Position Sitting Pulse 69 Intake Visit Reasons: ED follow up Intake Note: Patient here to follow up from ED visit on 08-08-2024. Reports lt sided chest pain. Patient c/o: abdominal pain. feels like diverticulitis but pain is not constant. Regular BM. Denies constipation. Cardiac Cath Lab Radiology Technologist Required: No Accompanied by: Self / Same As Patient Allergies adhesive tape Adverse Reaction (Mild, Verified 08/16/24 10:00) Unknown From Augmentin Adverse Reaction (Unknown, Uncoded 08/16/24 10:00) INTOLERANCE HPI HPI ED follow up: Details: 73 yr old patient with hx of b/l mastectomy, partial colectomy, being seen for GERD type sx RECAP: She has been sx for a long time she has chest pain , saw cardiology and not felt to be cardiac, has mild CAD on CT she doesn;t feel good generally she has noted epigastric pain, she has stopped eating spicey food can;t pinpoint anything that makes it happen she mentioned weird bowel habits in the morning, normal, then loose then normal again she had incomplete evacuation for 1 year she has stool urgency not that happen tired all the time for at least 1 yr she snores per grand daughter she had morning nausea last colonscopy: 2015-- diverticulosis no masses EGD 2016-- no ulcers REPEAT EGD/COLO: 06/2023 Endoscopy Findings: mild esophagitis Colonoscopy Findings: internal hemorrhoids diverticular disease INTERIM: she has been having ongoing chest pains, non cardiac type she went to the ED and had assessment 08/13 --neg egd and trop she has ongoing regurgitation she has hardness in the stomach, she has been having nausea, no vomiting she has ongoing incomplete evacuation of stool EXAM: GENERAL: The patient is well developed and nontoxic. VITAL SIGNS:see workflow HEENT: Nonicteric sclerae, PERRLA, EOMI. Oropharynx clear. Moist mucous membranes. Conjunctivae appear well perfused. No thyroid mass. CHEST: Chest wall is nontender. HEART: Regular rate and rhythm without murmurs. LUNGS: Clear to auscultation bilaterally. ABDOMEN: Soft, positive bowel sounds, nontender, no organomegaly.no flank tenderness--bulge noted mid abdomen SKIN: No rash, no excessive bruising, petechiae, or purpura. NEUROLOGIC: Cranial nerves II-XII intact without motor/sensory deficit. Psych: normal affect A/P: 1/ Non cardiac chest pain, could be spasm or GERD related--ongoing, unable to take ISMN due to headaches 2/ symptomatic diastasis recti may be causing her incomplete evacuation Plan: 1/ change to lansoprazole 15 mg BID, ODT 2/ EGD with wahl, stop PPi 2 wks before, can use carafate 3/ refer plastic surgery, Dr Cerna for repair of diastasis recti 4/ might need manometry [facility] Medical History Left lower quadrant pain Abdominal wall bulge Hyperlipidemia CAD (coronary artery disease) Osteoporosis Rectal pain Anxiety Abdominal wall hernia Annual physical exam Abdominal pain Hx of breast cancer History of diverticulitis GERD (gastroesophageal reflux disease) History of snoring HTN (hypertension) Surgical History History of breast reconstruction H/O right mastectomy H/O left mastectomy Hx of varicose vein stripping Hx of carpal tunnel repair Hx of hammer toe correction H/O partial resection of colon H/O esophagogastroduodenoscopy Hx of colonoscopy Family History Father Alzheimer's dementia Unknown family medical history Mother CVD (cardiovascular disease) Myocardial infarction Maternal Grandmother Diabetes mellitus Maternal Grandfather No problems noted. Paternal Grandfather No problems noted. Paternal Grandmother No problems noted. Daughter No problems noted. Daughter No problems noted. Brother Substance use disorder Brother No problems noted. Brother No problems noted. Brother No problems noted. Brother Myocardial infarction Brother Throat cancer Myocardial infarction Maternal Aunt Stomach cancer Sister Myocardial infarction Social History Household Members Other:: lives alone, exercise occasionally Housing: House Are you a primary career development facilitator to a significant other at home: No Do you presently have visiting nurse or other home services: No Alcohol intake: current Alcohol intake frequency: a few times a month Alcohol type: beer Patient Tobacco Use Status: Former Tobacco user e-Cigarette/Vaping Use: Never Used service: No Current occupational status: employed Physical Exam Vital Signs: Last Vital Signs Pulse 69 08/16/24 09:55 BP 159/69 H 08/16/24 09:55 Assessment & Plan Assessment & Plan (1) Diastasis recti: Code(s): M62.08 - Separation of muscle (nontraumatic), other site Category: Medical Plan: see above Orders: Referrals Plastic Surgery Referral M62.08 - Separation of muscle (nontraumatic), other site Medications: New sucralfate 10 mL PO BID 1,000 mL 1RF lansoprazole 15 mg PO BID 60 tabs 0RF Discontinued pantoprazole Discontinued Reason: Doctor's Order 40 mg PO BID 90 tabs 1RF Coding Level of Care Code Est Pt Level 4 (04301) Diagnoses Diastasis recti M62.08
[2024-08-16 09:55] VITALS: BP 159/69; PULSE 69
== END 2024-08-16 10:34 | disposition home or self-care (01) ==
PROVIDERS: PCP Internal Medicine; Visit Provider Internal Medicine Gastroenterology
DX: M62.08 Separation of muscle (nontraumatic), other site (principal)
CPT/HCPCS: 99214

== ENCOUNTER → 2024-08-16 09:53 | Outpatient (BNVA) | payer OTHER, SELFPAY | PROVIDERS: PCP Internal Medicine; Visit Provider Internal Medicine Gastroenterology ==

== ENCOUNTER 2024-10-07 08:10 | Outpatient (AMB) | payer OTHER, SELFPAY ==
--- NOTE | 2024-10-07 08:11 | MHC.OFFWIV ---
Intake Vital Signs 10/07/24 08:12 Weight 165 lb BP 130/84 Blood Pressure Location Rt brachial Position Sitting Pulse 74 Pulse Source Pulse Oximeter Pulse Oximetry (%) 97 Oxygen Delivery Method Room Air Intake Visit Reasons: EP abdominal pain Intake Note: Patient here for abdominal pain that has been present for a while. Patient Tobacco Use Status: Former Tobacco user Allergies adhesive tape Adverse Reaction (Mild, Verified 10/07/24 08:14) Unknown From Augmentin Adverse Reaction (Unknown, Uncoded 10/07/24 08:14) INTOLERANCE Do you need a note to return to daycare/school/sports/work: No HPI EP abdominal pain HPI Details This note is constructed using voice recognition software. While every effort has been made to ensure accuracy, scrap collector errors may have been included. The patient is a 73 year old female who presents to the clinic today with longstanding history of left lower quadrant abdominal pain on the surface. She notes she has had history of diverticulitis with bowel resection, and after having a bowel resection has been left with what her GI specialist believes to be a large hernia. She reports that the area is somewhat more tender, she is having some nausea with a, and she has been advised to follow with [facility] in the past for consideration of removal. She has not yet obtained any referrals to go to [facility] for this, and is unsure if this is a recommendation that she wants to pursue. She denies fever, chills, change in her bowel pattern. [facility] Medical History Left lower quadrant pain Abdominal wall bulge Hyperlipidemia CAD (coronary artery disease) Osteoporosis Rectal pain Anxiety Abdominal wall hernia Annual physical exam Abdominal pain Hx of breast cancer History of diverticulitis GERD (gastroesophageal reflux disease) History of snoring HTN (hypertension) Surgical History History of breast reconstruction H/O right mastectomy H/O left mastectomy Hx of varicose vein stripping Hx of carpal tunnel repair Hx of hammer toe correction H/O partial resection of colon H/O esophagogastroduodenoscopy Hx of colonoscopy Family History Father Alzheimer's dementia Unknown family medical history Mother CVD (cardiovascular disease) Myocardial infarction Maternal Grandmother Diabetes mellitus Maternal Grandfather No problems noted. Paternal Grandfather No problems noted. Paternal Grandmother No problems noted. Daughter No problems noted. Daughter No problems noted. Brother Substance use disorder Brother No problems noted. Brother No problems noted. Brother No problems noted. Brother Myocardial infarction Brother Throat cancer Myocardial infarction Maternal Aunt Stomach cancer Sister Myocardial infarction Social History Household Members Other:: lives alone, exercise occasionally Housing: House Are you a primary geriatric personal care aide to a significant other at home: No Do you presently have visiting nurse or other home services: No Alcohol intake: current Alcohol intake frequency: a few times a month Alcohol type: beer Patient Tobacco Use Status: Former Tobacco user e-Cigarette/Vaping Use: Never Used service: No Current occupational status: employed Review of Systems Const All systems reviewed & are unremarkable except as noted in HPI and below Physical Exam Vital Signs: Last Vital Signs Pulse 74 10/07/24 08:12 BP 130/84 10/07/24 08:12 Pulse Ox 97 10/07/24 08:12 Oxygen Delivery Method Room Air 10/07/24 08:12 Const General: cooperative, healthy appearing, comfortable, no acute distress and well developed Orientation/consciousness: patient oriented x3 Limitations: no limitations Resp Effort & Inspection: normal respiratory effort and able to speak in complete sentences Auscultation: clear to auscultation bilaterally Cardio Rate: regular rate Rhythm: regular rhythm Heart sounds: normal S1 and S2 GI Other: Fullness over left lower abdomen, nontender Palpation (GI): Soft to palpation and nontender Skin General skin exam: no rashes or lesions noted Neuro General: patient oriented x3 Extrem General: Yes normal to inspection Assessment & Plan Assessment & Plan (1) Abdominal pain: Comment: LLQ, history of colon resection for diverticulosis, ? hernia Code(s): R10.9 - Unspecified abdominal pain Qualifiers: Abdominal location: left lower quadrant Qualified Code(s): R10.32 - Left lower quadrant pain Plan: No obvious signs of diverticulitis based on history or physical examination. Given the chronicity of this and the fact that she has a specialists, I advised that she follow her specialist for updated treatment plan. Advised ER with sudden worsening of pain, for consideration of imaging if appropriate. Given the fact that patient is experiencing nausea, I did offer to prescribe antiemetic, however she declined at this time. Advised follow up with worsening or failure to resolve. Plan See above for full details and plan. Coding Level of Care Code Est Pt Level 3 (73692) Diagnoses Left lower quadrant abdominal pain R10.32 Abdominal location: left lower quadrant
[2024-10-07 08:12] VITALS: BP 130/84; PULSE 74; O2SAT 97
== END 2024-10-07 08:38 | disposition home or self-care (01) ==
PROVIDERS: PCP Internal Medicine; Visit Provider Registered Nurse
DX: R10.32 Left lower quadrant pain (principal)

== ENCOUNTER → 2024-10-07 08:10 | Outpatient (BNVA) | payer OTHER, SELFPAY | PROVIDERS: PCP Internal Medicine; Visit Provider Registered Nurse ==

== ENCOUNTER 2024-10-08 13:39 | Outpatient (REF) | payer OTHER, SELFPAY ==
[2024-10-08 14:18] LABS: MANUAL DIFF FLAG NO
[2024-10-08 14:43] LABS: Basophils Absolute Auto 0.1 X10*3/uL (0.0-0.2); Basophils Percent Auto 0.6 % (0-2); Eosinophils Absolute Auto 0.1 X10*3/uL (0.0-0.4); Eosinophils Percent Auto 1.1 % (0-4); Hemoglobin 15.4 g/dl (12.0-16.0); Imm Gran Abs Auto 0.04 X10*3/uL (0.00-0.03); Imm Gran Pct Auto 0.3 % (0.0-0.4); Lymphocytes Absolute Auto 2.3 X10*3/uL (1.2-4.9); Lymphocytes Percent Auto 18.6 % (20-40); Mean Corpuscular HGB Conc 33.5 g/dl (31.0-35.0); Mean Corpuscular Hemoglobin 30.8 pg (27.0-33.0); Mean Platelet Volume 10.8 fL (9.4-12.3); Monocytes Absolute Auto 1.3 X10*3/uL (0.1-1.2); Monocytes Percent Auto 10.1 % (2-11); Neutrophils Absolute Auto 8.6 x10*3/uL (2.0-8.3); Neutrophils Percent Auto 69.3 % (45-73); Platelet Count 261 X10*3/uL (160-400); Red Cell Distribution Width 12.4 % (11.0-16.0); White Blood Count 12.4 X10*3/uL (4.8-10.8)
[2024-10-08 15:20] LABS: Erythrocyte Sedimentation Rate 34 MM/HR (0-20)
[2024-10-08 16:12] LABS: Alanine Aminotransferase 18 U/L (0-31); Albumin Level 4.1 g/dL (3.5-5.0); Anion Gap 15 (12-20); Aspartate Amino Transferase 23 U/L (5-31); Bilirubin Total 1.4 mg/dL (0.0-1.0); Blood Urea Nitrogen 14 mg/dL (9-16); C Reactive Protein 5.36 mg/dL (< or = 0.50); Calcium 10.1 mg/dL (8.4-10.2); Carbon Dioxide 24 mmol/L (22-29); Chloride 105 mmol/L (96-108); Estimated Glomerular Filt Rate > 60; Glucose Random 95 mg/dL (60-115); Lipase 22 U/L (8-78); Potassium 4.3 mmol/L (3.3-5.1); Sodium 140 mmol/L (135-145); Total Protein 7.3 g/dL (6.5-8.0)
[2024-10-08 17:22] LABS: Alkaline Phosphatase 69 U/L (39-117); Amylase 65 U/L (28-100)
== END 2024-10-08 13:40 | disposition home or self-care (01) ==
LOC: HO.LAB 13:39
PROVIDERS: PCP Internal Medicine; Visit Provider Internal Medicine
DX: R10.84 Generalized abdominal pain (principal)
CPT/HCPCS: 36415; 80053; 82150; 83690; 85025; 85652; 86140

== ENCOUNTER 2024-10-10 09:28 | Outpatient (REF) | payer OTHER, SELFPAY ==
--- NOTE | ~2024-10-10 | CT_ITS ---
EXAMINATION: CT ABDOMEN AND PELVIS WITH CONTRAST CLINICAL INFORMATION: Left lower quadrant pain. COMPARISON: CT dated December 13, 2023. TECHNIQUE: Multidetector volumetric images were obtained from the superior aspect of the liver through the pubic symphysis following administration 85 mL of Omnipaque 350 intravenous contrast without reported immediate complications. Sagittal and coronal reformatted images were obtained on the technologist's workstation. Oral contrast: [address] examination was performed using dose optimization techniques as appropriate, variously including the following: *Automated exposure control *Adjustment of mA and/or kV according to patient size (this includes techniques or standardized protocols for targeted exams where dose is matched to indication/reason for exam; i.e. extremities or head) *Use of iterative reconstruction technique DLP: 461 mGy-cm FINDINGS: LUNG BASES: No acute airspace disease or gross pulmonary nodules in the included lung bases. LIVER, GALLBLADDER, AND BILIARY TREE: Liver measures 14 cm. No focal mass. Portal vein and hepatic veins are patent. No intrahepatic or extrahepatic biliary ductal dilatation. 5 mm focal calcification within the lumen of a contracted gallbladder. No pericholecystic fluid collection or gallbladder wall thickening. PANCREAS: No focal mass. No peripancreatic edema pattern. No main pancreatic ductal dilatation. SPLEEN: 7 cm. No focal mass. ADRENAL GLANDS: No nodular lesions. KIDNEYS AND URETERS: Normal enhancement pattern without gross renal mass or hydronephrosis. Multiple cystic lesions likely parapelvic in the left kidney and to a lesser extent on the right kidney. BLADDER: Fluid-filled. GASTROINTESTINAL TRACT: There is a 4 cm segmental asymmetric wall thickening with associated pericolonic edema pattern centered in the proximal descending colon just below the splenic colonic flexure. Associated diverticula. Scattered diverticula throughout the large intestine. Abundant stool. No intestinal obstruction pattern. No pneumoperitoneum. No ascites. No pneumatosis intestinalis. Appendix is normal. ABDOMINAL WALL: Diastases abdominal rectus muscles and multiple vascular clips suggesting prior surgical procedure. LYMPH NODES: Prominent nonspecific mesenteric lymph nodes. VASCULAR: Throughout the infrarenal and distal abdominal aorta wall without aneurysm or dissection. PELVIC VISCERA: No gross masses in the adnexa or uterus. OSSEOUS STRUCTURES: Multilevel thoracolumbar spondylosis. No acute fracture. Subtle grade 1 retrolisthesis L5-S1 on a degenerative basis. Bony pelvis is intact. No gross lytic or blastic lesions. CT/CT abdomen pelvis w IV con IMPRESSION: Focal, 4 cm area of acute subacute inflammatory process such as diverticulitis proximal descending colon without peritoneal abscesses or overt pneumoperitoneum or intestinal obstruction. Underlying neoplasm cannot be entirely excluded. Cholelithiasis. Parapelvic cysts, both kidneys. Fleischner guidelines were followed. Electronically signed by: Jesu Azar MD 10/11/2024 07:21 AM EST
[2024-10-10] MEDS: iohexoL 350 MG/ML 75 ML INFUS..BTL 85 ML IV (11:49)
[2024-10-10] MEDS: Barium Sulfate Oral (Berry) 450 ML ORAL.SUSP 900 ML PO (11:50)
== END 2024-10-10 09:29 | disposition home or self-care (01) ==
LOC: HO.CT 09:28
PROVIDERS: PCP Internal Medicine; Visit Provider Internal Medicine
DX: R10.32 Left lower quadrant pain (principal); K52.9 Noninfective gastroenteritis and colitis, unspecified; K57.30 Diverticulosis of large intestine without perforation or abscess without bleeding
CPT/HCPCS: 74177; Q9967

== ENCOUNTER → 2024-10-10 11:38 | Outpatient (BNV) | payer OTHER, SELFPAY | PROVIDERS: PCP Internal Medicine; Visit Provider Radiology Diagnostic Radiology | DX: K80.80 Other cholelithiasis without obstruction (principal); N28.1 Cyst of kidney, acquired; K57.12 Diverticulitis of small intestine without perforation or abscess without bleeding | CPT/HCPCS: 74177 ==

== ENCOUNTER 2024-10-14 07:58 | Outpatient (AMB) | payer OTHER, SELFPAY ==
--- NOTE | 2024-10-14 08:05 | MHC.OFFVIS ---
Vital Signs 10/14/24 08:07 Height 5 ft 3 in Weight 163 lb BMI 28.9 Intake Visit Reasons: ENP-Balance Issues Intake Note: Patient presents for balance issues. Allergies adhesive tape Adverse Reaction (Mild, Verified 10/14/24 08:08) Unknown From Augmentin Adverse Reaction (Unknown, Uncoded 10/14/24 08:08) INTOLERANCE HPI Comments Details: 73y/o female comes for evaluation of balance issues which started about 1 year ago.She had headaches associated with her feeling off balance when it started about 1 year ago. The headaches are better , almost resolved but still has episodes of not feeling right in space. she denies any tinnitus , hearing loss. The balance issues are more when she is in a open space or when she is walking.she is not sure if it is due to change in positions.she denies double vision, dysarthria , dysphagia. she denies any ear infections, ear pain, sinus infections. she denies neck or back pain she denies numbness or tingling or weakness No urinary incontinence PFSH Medical History (Updated 10/14/24 @ 09:04 by Stephanie Sierra MD) Balance disorder Gait instability Left lower quadrant pain Abdominal wall bulge Hyperlipidemia CAD (coronary artery disease) Osteoporosis Rectal pain Anxiety Abdominal wall hernia Annual physical exam Abdominal pain Hx of breast cancer History of diverticulitis GERD (gastroesophageal reflux disease) History of snoring HTN (hypertension) Surgical History History of breast reconstruction H/O right mastectomy H/O left mastectomy Hx of varicose vein stripping Hx of carpal tunnel repair Hx of hammer toe correction H/O partial resection of colon H/O esophagogastroduodenoscopy Hx of colonoscopy Family History Father Alzheimer's dementia Unknown family medical history Mother CVD (cardiovascular disease) Myocardial infarction Maternal Grandmother Diabetes mellitus Maternal Grandfather No problems noted. Paternal Grandfather No problems noted. Paternal Grandmother No problems noted. Daughter No problems noted. Daughter No problems noted. Brother Substance use disorder Brother No problems noted. Brother No problems noted. Brother No problems noted. Brother Myocardial infarction Brother Throat cancer Myocardial infarction Maternal Aunt Stomach cancer Sister Myocardial infarction Social History Household Members Other:: lives alone, exercise occasionally Housing: House Are you a primary home health care social worker to a significant other at home: No Do you presently have visiting nurse or other home services: No Alcohol intake: current Alcohol intake frequency: a few times a month Alcohol type: beer Patient Tobacco Use Status: Former Tobacco user e-Cigarette/Vaping Use: Never Used service: No Current occupational status: employed Physical Exam Vital Signs: BMI result Body Mass Index 28.9 Const General: cooperative, healthy appearing and comfortable Nutritional Appearance: average body habitus Orientation/consciousness: patient oriented x3 HEENT Head: Yes normal to inspection and Yes normocephalic Eyes Pupils: Equal, round and reactive pupils present Neuro Other: Gait- mild off balance- good posture, mild decreased arm swing on right , normal base, difficulty with tandem walk General: patient oriented x3, tone normal, moves all extremities and no focal motor deficits Cranial nerves: Yes Facial sensation intact/muscles of mastication intact, Yes Equal, round and reactive pupils present, Yes Bilaterally intact EOM present, Yes Nystagmus not present, Yes Normal facial strength present, Yes Midline tongue present, Yes Symmetric palate elevation present and Yes Ability to bilaterally elevate shoulders present Cognition (Neuro): normal cognition Motor exam (neuro): 5/5 motor strength present throughout and Normal motor muscle tone present throughout Deep tendon reflexes (DTR's): Right triceps reflex intensity grade: 2+, Left triceps reflex intensity grade: 2+, Rt Biceps (C5, C6): 2+, Left biceps reflex intensity grade: 2+, Right brachioradialis reflex intensity grade: 2+, Left brachioradialis reflex intensity grade: 2+, Right patellar reflex intensity grade: 2+ and Left patellar reflex intensity grade: 2+ Coordination: [id number] test normal Results Reviewed Results Reviewed: MRI BRAIN 2021 - No acute intracranial findings. - There is global cerebral volume loss and there is mild chronic microangiopathy. her recent abdominal CT showed lumbar spondylosis Assessment & Plan Assessment & Plan (1) Balance disorder: Comment: ? vestibular migraine ? vertigo Code(s): R26.89 - Other abnormalities of gait and mobility Category: Medical Plan Her neurological exam was nonfocal today . she denies any other symptoms of brainstem pathology. I will monitor her clinically PT for gait and balance. Her labs were reviewed - normal B 12 levels Orders: Orders PT Evaluation and Treatment Today R26.81 - Unsteadiness on feet Coding Level of Care Code New Pt Level 4 (43777) Diagnoses Balance disorder R26.89
[2024-10-14 08:07] VITALS: BMI 28.9
== END 2024-10-14 08:40 | disposition home or self-care (01) ==
PROVIDERS: PCP Internal Medicine; Visit Provider Psychiatry & Neurology Neurology
DX: R26.89 Other abnormalities of gait and mobility (principal)
CPT/HCPCS: 99204

== ENCOUNTER → 2024-10-14 07:58 | Outpatient (BNVA) | payer OTHER, SELFPAY | PROVIDERS: PCP Internal Medicine; Visit Provider Psychiatry & Neurology Neurology ==

== ENCOUNTER 2024-10-24 15:00 | Outpatient (AMB) | payer OTHER, SELFPAY ==
[2024-10-24 15:01] VITALS: BP 116/76; PULSE 74; BMI 28.9
--- NOTE | 2024-10-24 15:01 | A.OFFVIS_ITS ---
Vital Signs 10/24/24 15:01 Height 5 ft 3 in Weight 163 lb 2.273 oz BMI 28.9 BP 116/76 Blood Pressure Location Lt brachial Position Sitting Pulse 74 Intake Visit Reasons: 1 year fu Intake Note: 1 year follow-up had ekg in Sept hearts doing ok having issue with GI Automotive Finance Manager Required: No Allergies adhesive tape Adverse Reaction (Mild, Verified 10/14/24 08:08) Unknown From Augmentin Adverse Reaction (Unknown, Uncoded 10/14/24 08:08) INTOLERANCE Medication List - Last Reconciled 10/24/24 by Sal Cherry MD ascorbic acid-collagen 30-833.3 mg (Collagen Skin Renewal) tabs PO aspirin 81 mg PO DAILY cholecalciferol (vitamin D3) 50 mcg PO DAILY metoprolol succinate ER 50 mg PO DAILY multivitamin-calcium carb-iron tabs PO pantoprazole 20 mg PO DAILY rosuvastatin (Crestor) 40 mg PO DAILY 90 days timolol maleate 0.5% 0 drps ophthalmic (eye) QAM HPI Comments Details: Siri comes for follow-up. She has no active cardiac complaints. Main issues are GI related. She denies any symptoms exertional chest pain. No worsening shortness of breath, orthopnea, PND, leg edema. Last LDL was well optimized on current statin dose. Says a blood pressures been generally well controlled at this point time. Taking all her medications. [facility] Medical History Balance disorder Gait instability Left lower quadrant pain Abdominal wall bulge Hyperlipidemia CAD (coronary artery disease) Osteoporosis Rectal pain Anxiety Abdominal wall hernia Annual physical exam Abdominal pain Hx of breast cancer History of diverticulitis GERD (gastroesophageal reflux disease) History of snoring HTN (hypertension) Surgical History History of breast reconstruction H/O right mastectomy H/O left mastectomy Hx of varicose vein stripping Hx of carpal tunnel repair Hx of hammer toe correction H/O partial resection of colon H/O esophagogastroduodenoscopy Hx of colonoscopy Family History Father Alzheimer's dementia Unknown family medical history Mother CVD (cardiovascular disease) Myocardial infarction Maternal Grandmother Diabetes mellitus Maternal Grandfather No problems noted. Paternal Grandfather No problems noted. Paternal Grandmother No problems noted. Daughter No problems noted. Daughter No problems noted. Brother Substance use disorder Brother No problems noted. Brother No problems noted. Brother No problems noted. Brother Myocardial infarction Brother Throat cancer Myocardial infarction Maternal Aunt Stomach cancer Sister Myocardial infarction Social History Household Members Other:: lives alone, exercise occasionally Housing: House Are you a primary care transitions nurse to a significant other at home: No Do you presently have visiting nurse or other home services: No Alcohol intake: current Alcohol intake frequency: a few times a month Alcohol type: beer Patient Tobacco Use Status: Former Tobacco user e-Cigarette/Vaping Use: Never Used service: No Current occupational status: employed Review of Systems Const Denies chills, Denies fatigue, Denies fever(s), Denies frequent falls, Denies weakness, Denies weight gain and Denies weight loss ENT Denies dizziness Card Denies chest pain, Denies leg edema, Denies lightheadedness, Denies palpitations, Denies dyspnea, Denies dyspnea on exertion, Denies orthopnea and Denies other (loss of consciousness) Resp Denies cough, Denies dyspnea and Denies dyspnea on exertion GI Denies hematochezia and Denies change in stool character Musc Denies abnormal gait, Denies muscle weakness, Denies numbness, Denies radiating pain into limb and Denies tingling Neuro Denies abnormal gait, Denies dizziness, Denies frequent falls, Denies numbness, Denies tingling and Denies weakness Endo Denies fatigue and Denies palpitations Physical Exam Vital Signs: Last Vital Signs Pulse 74 10/24/24 15:01 BP 116/76 10/24/24 15:01 BMI result Body Mass Index 28.9 Const General: no acute distress HEENT Head: Yes normal to inspection Ears: hearing grossly normal bilaterally Eyes General: appearance normal, both eyes and all related structures Neck Neck: Yes no lymphadenopathy Resp Effort & Inspection: normal respiratory effort Auscultation: clear to auscultation bilaterally Cardio Rhythm: regular rhythm Heart sounds: S1 normal heart sound present and S2 normal heart sound present GI Other: LLQ discomfort and slight fullness, no rebound Inspection: Yes normal to inspection Palpation (GI): Soft to palpation and No hepatosplenomegaly present Auscultation: normal bowel sounds Rectal Exam - Female: deferred Skin General skin exam: no rashes or lesions noted Extrem General: Yes no clubbing, cyanosis or edema Office Procedures EKG Details: EKG shows normal sinus rhythm with possible inferior infarct with poor R-wave progression most likely due to lead placement 23866-[id number], Complete Assessment & Plan Assessment & Plan (1) CAD (coronary artery disease): Code(s): I25.10 - Atherosclerotic heart disease of [place] coronary artery without angina pectoris Category: Medical Plan: Nonobstructive CAD without any new symptoms at current point in time. Continue aggressive medical management. Continue low-dose aspirin therapy. Continue h igh-intensity statin therapy with well optimized LDL at this point in time. Lipid panel every year. Continue aggressive blood pressure control, see below. Encouraged to increase activity level and participate in some weight loss program. (2) HTN (hypertension): Code(s): I10 - Essential (primary) hypertension Category: Medical Plan: Hypertension which is currently well optimized advised to monitor blood pressure at home. Target goal blood pressure less than 130/84. Low-salt diet was advised. Continue current therapy. Importance of good blood pressure control was discussed. Increase activity level. Will follow up in the clinic in 1 year's time, sooner p.r.n.. Thank you for allowing me to partake in her care Coding Level of Care Code Est Pt Level 4 (14134) Complex EM visit Add On G2211 Diagnoses CAD (coronary artery disease) I25.10 HTN (hypertension) I10 CPT Codes EKG - CPT: 41570-[id number], Complete ([id number])
--- OUTSIDE RECORDS SUMMARY | 2024-10-30 04:13 | XMS_ITS ---
Author Organization [facility] Address [address] [place] [phone] Care Team Providers Care Safety Associate Name Role Phone Audra Marcos MD Primary Care Provider Adam Ramos Unavailable [phone] REASON FOR VISIT pt has an abnormal ct scan Encounters Encounter Location Date Provider Diagnosis [facility] [address] [facility] [address] [place] [phone] 10/28/2024 Adam Austin PLAN OF TREATMENT No Information
--- OUTSIDE RECORDS SUMMARY | 2024-10-30 04:13 | XMS_ITS | Patient Health Record ---
Author Organization [facility] Address [address] [place] [phone] Care Team Providers Care Personal Care Aid Name Role Phone Priti BEYER, Audra Primary Care Provider Adam Ramos Unavailable [phone] ALLERGIES Allergen (clinical drug ingredient) Drug/Non Drug [...] Problem Dysphagia, unspecified type (R13.10) Active confirmed 21879448 Problem Change in bowel habit (R19.4) Active confirmed 374625993 Problem Nausea (R11.0) Active confirmed 6107820 07 Problem Gastroesophageal reflux disease without esophagitis (K21.9) Active confirmed 347906721 Problem Esophageal spasm (K22.4) Active confirmed 569712870 Problem Chest discomfort (R07.89) Active confirmed 615095038 Problem GERD (gastroesophageal reflux disease) (K21.9) Active confirmed Gastroesophagea l reflux disease (091765800) Problem Gallstones (K80.20) Active confirmed 23 1515007 Encounters Encounter Location Date Provider Diagnosis [facility] [address] [place] [address] 10/28/2024 Adam Austin PLAN OF TREATMENT Pending Test Test Name Order Date NUC HIDA SCAN 06/17/2021 Future Test Test Name Order Date UPPER GI ENDOSCOPY BALLOOON DILATION OF ESOPH 10/26/2017 UPPER GI ENDOSCOPY 07/07/2020 Insurance Providers Payer Name Payer Address Payer Phone Subscriber Number Group Number Insured Name Patient Relationship to Insured Coverage Start Date Coverage End Date [employer] [place] [address] [address] [place] [address] [id number] BELLA MCFARLAND Self - patient is the insured MEDICAL (GENERAL) HISTORY Medical History History ICD Code Hypertension Breast cancer--as below--followed at [facility] Denies [place],DM,CVA,Lung disease,renal dise ase Colonoscopy in 2012 and [...]
== END 2024-10-24 15:30 | disposition home or self-care (01) ==
PROVIDERS: PCP Internal Medicine; Visit Provider Internal Medicine Cardiovascular Disease
DX: I25.10 Atherosclerotic heart disease of native coronary artery without angina pectoris (principal); I10 Essential (primary) hypertension
CPT/HCPCS: 93010; 99214

== ENCOUNTER → 2024-10-24 15:00 | Outpatient (BNVA) | payer OTHER, SELFPAY | PROVIDERS: PCP Internal Medicine; Visit Provider Internal Medicine Cardiovascular Disease | DX: I25.10 Atherosclerotic heart disease of native coronary artery without angina pectoris (principal); I10 Essential (primary) hypertension; Z87.891 Personal history of nicotine dependence | CPT/HCPCS: 93005 ==

== ENCOUNTER 2024-11-19 11:30 | Day surgery (SDC) | payer OTHER, SELFPAY ==
--- OUTSIDE RECORDS SUMMARY | 2024-10-29 12:51 | XMS_ITS ---
Author Organization [facility] Address [address] [place] [id number] Care Team Providers Care Recycling Collections Driver Name Role Phone Audra Marcos MD Primary Care Provider Adam Ramos Unavailable [phone] REASON FOR VISIT pt has an abnormal ct scan Encounters Encounter Location Date Provider Diagnosis [facility] [address] [facility] [address] [place] [id number] 10/28/2024 Adam Austin PLAN OF TREATMENT No Information
--- OUTSIDE RECORDS SUMMARY | 2024-10-29 12:52 | XMS_ITS | Patient Health Record ---
Author Organization [facility] Address [address] [place] [id number] Care Team Providers Care Tire Wrapper Name Role Phone Priti BEYER, Audra Primary Care Provider Adam Ramos Unavailable [phone] ALLERGIES Allergen (clinical drug ingredient) Drug/Non Drug Allergy documented on EMR Reaction Allergy Type Onset Date Status Adhesive Tape Unknown Drug Allergy Act marsha REASON FOR REFERRAL No Information MEDICATIONS Medication SIG (Take, Route, Frequency, Duration) Notes Start Date End Date Status Omeprazole 20 TAKE ONE CAPSULE BY MOUTH EVERY MORNING Orally TWICE A DAY Active Metoprolol Succinate ER 50 MG TK 1 T PO D Oral for 30 Acti ve Vitamin D3 50 MCG (1999) 1 tablet Orally Once a day A ctive IMMUNIZATIONS Vaccine Route Administration Date Status Comme nts Influenza Unknown 08/20/2017 Administered Influenza Unknown 07/21/2019 Administered Influenza Unknown 07/21/2020 Administered SOCIAL HISTORY Tobacco Use: Social History Observation Description Date Details (start date - stop date) Former Smoker NA - NA Sex Assigned At : Social History Observation Description Sex Assigned At Unknown Tobacco Use/Smoking Question Answer Notes Patient is a former smoker How long has it been since you last smoked? > 10 years Alcohol Screen Question Answer Notes Did you have a drink containing alcohol in the p ast year? No Points 0 Interpretation Negative PROBLEMS Problem Type ICD Code Onset Dates Problem Status W/U Status Risk SNOMED Code Notes Problem Dysphagia, unspecified type (R13.10) Active confirmed 14888130 Problem Change in bowel habit (R19.4) Active confirmed 364343516 Problem Nausea (R11.0) Active confirmed 1806670 07 Problem Gastroesophageal reflux disease without esophagitis (K21.9) Active confirmed 653917449 Problem Esophageal spasm (K22.4) Active confirmed 404997349 Problem Chest discomfort (R07.89) Active confirmed 841962201 Problem GERD (gastroesophageal reflux disease) (K21.9) Active confirmed Gastroesophagea l reflux disease (453869337) Problem Gallstones (K80.20) Active confirmed 23 [id number] Encounters Encounter Location Date Provider Diagnosis [facility] [address] [place] [address] 10/28/2024 Adam Austin PLAN OF TREATMENT Pending Test Test Name Order Date NUC HIDA SCAN 06/17/2021 Future Test Test Name Order Date UPPER GI ENDOSCOPY BALLOOON DILATION OF ESOPH 10/26/2017 UPPER GI ENDOSCOPY 07/07/2020 Insurance Providers Payer Name Payer Address Payer Phone Subscriber Number Group Number Insured Name Patient Relationship to Insured Coverage Start Date Coverage End Date [employer] [place] [address] [address] [place] [address] [id number] BELLA MCFARLAND Self - patient is the insured MEDICAL (GENERAL) HISTORY Medical History History ICD Code Hypertension Breast cancer--as below--followed at [facility] Denies [place],DM,CVA,Lung disease,renal dise ase Colonoscopy in [address] Tam--no polyps nor colitis--only diverticulosis Diverticulitis in [address] in 2014 Asymptomatic gallstones--the patient is aware Carpal tunnel and trigger fingers--pradip De La Rosa Negative upper GI and small bowel series in November 2016 EGD in 10/2017--minimal HH-- no esophagitis, normal duodenal bx, normal esophageal biopies, normal gastric biopsies, minimal HH Gallstone seen on January 2020 ultrasound--no cholecystitis nor biliary disease-D/W her at the 07/07/2020 OV Negative EGD in 08/2020--sma ll hiatal hernia, no Nicole's, no eosinophilic esophagitis, no esophagitis Surgical History Surgery Date(Month/Year) Sigmoid diverticulitis with sigmoid rese ction--Dr. Tam 2000 Bilateral mastectomy--bilate ral cancer---with reconstruction with abdominal wall surgery 2014 Revision of breast reconstru ction with abdominal wall surgery and mesh placement 2015 Foot Trigger finger 12/2017 Left Carpal tunnel release 12/2017 Vein ligation
[2024-11-15 12:38] VITALS: BMI 28.9
--- NOTE | 2024-11-19 11:41 | MHC.SHP ---
Pre-Procedural Eval Section A - 24 Hr Update-Section A only Date of Service: 11/19/24 Section B - Complete if H&P > 30 days Chief Complaint: GERD, abd pain, abnormal CT scan Details of Present Illness: Left lower quadrant pain Abdominal wall bulge Hyperlipidemia CAD (coronary artery disease) Osteoporosis Rectal pain Anxiety Abdominal wall hernia Annual physical exam Abdominal pain Hx of breast cancer History of diverticulitis GERD (gastroesophageal reflux disease) History of snoring HTN (hypertension) Surgical History History of breast reconstruction H/O right mastectomy H/O left mastectomy Hx of varicose vein stripping Hx of carpal tunnel repair Hx of hammer toe correction H/O partial resection of colon H/O esophagogastroduodenoscopy Hx of colonoscopy Present Medications: see Short Stay Collaborative assessment Allergies: Allergies Allergy/AdvReac Type Severity Reaction Status Date / Time adhesive tape AdvReac Mild Unknown Verified 10/14/24 08:08 From Augmentin AdvReac Unknown INTOLERANCE Uncoded 10/14/24 08:08 Review of Systems Review of Systems Comment: Ten point ROS negative Exam Exam Comment: Gen appear: No acute distress HEENT: no icterus Chest: No overt resp distress Abd: soft, nontender, nondistended Psych: Stable affect, answering questions appropriately Neuro: A/Ox3 noted to move all extremities spontaneously Ext: no peripheral edema Plan Diagnosis/Plan: Unchanged I have reviewed the history and physical and performed a pertinent physical examination on my patient. No changes have occurred unless specified. Time Spent With Patient Time: Total time managing care of this patient today ____ minutes.
[2024-11-19 11:42] VITALS: BMI 27.8
[2024-11-19] MEDS: Lactated Ringers 1,000 ML 80 ML IVCONT (11:51)
[2024-11-19 12:02] VITALS: BP 123/65; PULSE 81; RESP 18; TEMP 36.7; O2SAT 98
--- NOTE | 2024-11-19 12:04 | PC.NURSE ---
Patient denies limb restriction on either side.
--- NOTE | 2024-11-19 12:12 | P.OPN-COLO_ITS ---
Colonoscopy Operative Note Operative Note Date of Service: 11/19/24 Narrative: Procedure: Upper endoscopy and colonoscopy Indication: Abd pain, colon wall thickening on CT scan Endoscopist: Kate Lopez MD Anesthesia Provider: Cristina Hill MD Anesthesia type: MAC Instrument: GIF-H190 and PCF-[id number] EGD Procedure:?? The procedure, indications, preparation and potential complications were reviewed with the patient, who indicated understanding and gave written informed consent to proceed. An abdominal binder was placed to stabilize the 4 finger diastasis recti. IV meds were administered by the anesthesia provider. The endoscope was introduced through the mouth, and advanced to the 2nd part of the duodenum. The mucosa was carefully examined on slow withdrawal of the endoscope. The patient tolerated the procedure well. There were no immediate complications.? EGD Findings:? * Esophagus:? Normal esophageal mucosa was noted. The Z-line was at 35 cm. * Stomach:?Normal gastric mucosa. Rare gastric polyps in the fundus. Retroflexion was performed in the cardia. * Duodenum:? Normal duodenal mucosa. Colonoscopy Procedure:? The patient was then turned for the colonoscopy. A digital rectal exam was performed which was abnormal for external hemorrhoids. A distal attachment cap was affixed to the tip of the scope and the colonoscope was then inserted through the anus and advanced through the colon and advanced to the cecum at 70 cm and terminal ileum.? Appendiceal orifice and ileocecal valve were identified. Mucosa was carefully examined under high definition white light as the instrument was slowly withdrawn in a retrograde panoramic fashion. Retroflexion was performed in rectum. The procedure was not difficult. The quality of the prep was BBPS: 3+2+3 = adequate Withdrawal time 7 minutes Limitations: No limitations Findings: Mucosa: Subtle luminal narrowing noted in left colon but scope could easily be traversed. Normal colon and terminal ileum mucosa. Protruding lesions: * Large internal hemorrhoids without stigmata of recent bleeding. Excavated lesions: * Severe diverticulosis of whole colon noted L>R. Impression: 1. Normal esophagus 2. Normal stomach 3. Normal duodenum 4. Normal colon and terminal ileum mucosa 5. Diverticulosis 6. Internal and external hemorrhoids Recommendations:?? * As above, normal mucosa noted throughout the colon including descending colon. Focal descending colon wall thickening on CT scan likely 2/2 acute diverticulitis. * Patient declined Eng testing today. Can be reviewed further with her outpatient physical education professor. * Repeat colonoscopy for asymptomatic CRC screening in 10 years.
--- NOTE | 2024-11-19 12:32 | HO.ANESPROP2 ---
[facility] Active Problems Active Problems: All Active Problems Balance disorder (Acute) Gait instability (Acute) Diastasis recti (Acute) Acute diverticulitis (Acute) Degenerative tear of glenoid labrum of right shoulder (Acute) Right shoulder pain (Acute) Contracture of joint of finger of left hand (Acute) Trigger middle finger of left hand (Acute) Carpal tunnel syndrome of right wrist (Acute) Painful arc syndrome of right shoulder (Acute) Injury of right rotator cuff (Acute) Lymphedema (Acute) Left lower quadrant pain (Acute) Abdominal wall bulge (Acute) Incisional hernia (Acute) Iron deficiency (Acute) Vitamin D deficiency (Acute) Headache (Acute) Hyperlipidemia (Acute) Varicose veins of right lower extremity with inflammation (Acute) CAD (coronary artery disease) (Acute) Raynauds disease (Acute) PAD (peripheral artery disease) (Acute) GERD (gastroesophageal reflux disease) (Acute) Paronychia (Acute) Osteoporosis (Acute) Hx of colonoscopy (Acute) Rectal pain (Acute) Anxiety (Acute) Abdominal wall hernia (Acute) HTN (hypertension) (Acute) Annual physical exam (Acute) Abdominal pain (Acute) Hx of breast cancer (Acute) Generalized headaches (Acute) Chest pain (Acute) Past Medical History Medical History Balance disorder Gait instability Left lower quadrant pain Abdominal wall bulge Hyperlipidemia CAD (coronary artery disease) Osteoporosis Rectal pain Anxiety Abdominal wall hernia Annual physical exam Abdominal pain Hx of breast cancer History of diverticulitis GERD (gastroesophageal reflux disease) History of snoring HTN (hypertension) Functional capacity: independent ambulation Family History Family History Father Alzheimer's dementia Unknown family medical history Mother CVD (cardiovascular disease) Myocardial infarction Maternal Grandmother Diabetes mellitus Maternal Grandfather No problems noted. Paternal Grandfather No problems noted. Paternal Grandmother No problems noted. Daughter No problems noted. Daughter No problems noted. Brother Substance use disorder Brother No problems noted. Brother No problems noted. Brother No problems noted. Brother Myocardial infarction Brother Throat cancer Myocardial infarction Maternal Aunt Stomach cancer Sister Myocardial infarction Family history of problems with anesthesia: No Surgical History Surgical History History of breast reconstruction H/O right mastectomy H/O left mastectomy Hx of varicose vein stripping Hx of carpal tunnel repair Hx of hammer toe correction H/O partial resection of colon H/O esophagogastroduodenoscopy Hx of colonoscopy History of Problems with Anesthesia: No Social History Social History Household Members Other:: lives alone, exercise occasionally Housing: House Are you a primary patient care coordinator to a significant other at home: No Do you presently have visiting nurse or other home services: No Alcohol intake: current Alcohol intake frequency: a few times a month Alcohol type: beer Patient Tobacco Use Status: Former Tobacco user e-Cigarette/Vaping Use: Never Used Have you been hit, kicked, punched, or otherwise hurt by someone within the past year? If so, by whom?: No Are you DNR?: No Advance Directives: No Advance Directives Information Provided: Yes Recently lost weight without trying: No Nutrition Risks: No Nutritional Risk service: No Current occupational status: employed Meds Allergies Allergy/AdvReac Type Severity Reaction Status Date / Time adhesive tape AdvReac Mild Unknown Verified 11/19/24 11:47 Active Medications: Current Medications Lactated Ringer's (Lr) 1,000 mls @ 80 mls/hr IVCONT .[id number] MALA Last Admin: 11/19/24 11:51 Dose: 80 mls/hr Home Medications ?Medication ?Instructions ?Recorded ?Confirmed ?Last Taken ?Type timolol maleate 0.5 % eye drops 0 drp ophthalmic (eye) QAM 10/20/22 10/24/24 Unknown History ascorbic acid 30 mg-collagen, tab PO 06/03/24 10/24/24 Unknown History hydrolyzed 833.3 mg tablet (Collagen Skin Renewal) multivitamin with calcium carb and tab PO 06/03/24 10/24/24 Unknown History iron tablet oxycodone 5 mg capsule 5 mg PO TID PRN pain 11/18/24 11/19/24 Unknown History Exam Height,Weight and Vital Signs: Height 5 ft 3 in Weight 71.214 kg Last Vital Signs Temp 98.1 F 11/19/24 12:02 Pulse 81 11/19/24 12:02 Resp 18 11/19/24 12:02 BP 123/65 11/19/24 12:02 Pulse Ox 98 11/19/24 12:02 O2 Del Method Room Air 11/19/24 12:02 Airway Mallampati Class: I TM Dist: >3cm Neck ROM: Full Heart: RRR Lungs: CTA Assessment and Plan Assessment Anesthesia Assessment: Anesthesia Plan Discussed and Chart Reviewed Final Anesthetic Review Family History of Problems with Anesthesia: No History of Problems with Anesthesia: No NPO: Yes ASA Class: II Final Preanesthetic Review: Meds/Allgs Chart Reviewed, Consent Obtained/Reviewed and Anes Risks/Benef Reviewed Patient Risk: Low Procedure Risk: Low Anesthetic Plan Anesthetic Plan: MAC: Disposition: Standard PACU
[2024-11-19 12:46] VITALS: BP 95/57; PULSE 79; RESP 16; TEMP 36.4; O2SAT 94
[2024-11-19 13:00] VITALS: BP 99/67; PULSE 82; RESP 16; O2SAT 95
[2024-11-19 13:14] VITALS: BP 119/62; PULSE 77; RESP 16; TEMP 36.3; O2SAT 98
== END 2024-11-19 13:45 | disposition home or self-care (01) ==
PROVIDERS: PCP Internal Medicine; Visit Provider Internal Medicine
PROC: 0DJD8ZZ Inspection of Lower Intestinal Tract, Via Natural or Artificial Opening Endoscopic (ICD-10-PCS; CPT 45378; principal; 2024-11-19 12:40)
DX: K57.50 Diverticulosis of both small and large intestine without perforation or abscess without bleeding (principal); K21.9 Gastro-esophageal reflux disease without esophagitis; K64.4 Residual hemorrhoidal skin tags; K64.8 Other hemorrhoids; K63.89 Other specified diseases of intestine; K31.7 Polyp of stomach and duodenum; M62.08 Separation of muscle (nontraumatic), other site; R10.32 Left lower quadrant pain; E78.5 Hyperlipidemia, unspecified; I10 Essential (primary) hypertension; Z90.49 Acquired absence of other specified parts of digestive tract; Z79.899 Other long term (current) drug therapy; Z85.3 Personal history of malignant neoplasm of breast; Z90.13 Acquired absence of bilateral breasts and nipples
CPT/HCPCS: 45378; 43235; J2003; J2704

== ENCOUNTER → 2024-11-19 11:30 | Outpatient (BNV) | payer OTHER, SELFPAY | PROVIDERS: PCP Internal Medicine; Visit Provider Internal Medicine | DX: R10.9 Unspecified abdominal pain (principal); R93.3 Abnormal findings on diagnostic imaging of other parts of digestive tract; K31.7 Polyp of stomach and duodenum; K57.90 Diverticulosis of intestine, part unspecified, without perforation or abscess without bleeding; K64.8 Other hemorrhoids | CPT/HCPCS: 43235; 45378 ==

== ENCOUNTER 2025-03-10 13:26 | Outpatient (AMB) | payer OTHER, SELFPAY ==
--- NOTE | 2025-03-10 13:28 | MHC.OFFWIV ---
Intake Vital Signs 03/10/25 13:34 Weight 151 lb BP 122/80 Blood Pressure Location Lt brachial Position Sitting Pulse 75 Pulse Source Pulse Oximeter Pulse Oximetry (%) 94 Oxygen Delivery Method Room Air Intake Visit Reasons: EP Ear pain, fatigued Intake Note: Patient here for right ear discomfort, and fatigue that has been going on for some time now. Patient Tobacco Use Status: Former Tobacco user Allergies adhesive tape Adverse Reaction (Mild, Verified 03/10/25 13:31) Unknown Do you need a note to return to daycare/school/sports/work: No HPI HPI Comments History of Present Illness Details History of Present Illness - The patient is a 74-year-old female presenting with headache, fatigue, heart racing, nausea, alopecia, and diastasis recti that she is worried is pushing on her bladder as she has increased frequency of urination. - Reports onset of left-sided headache and associated nausea of unresolved duration; denies concurrent use of weight loss medications. - Currently on oral minoxidil for alopecia for over two years, with no significant improvement noted. - Experiencing racing heart, and left-sided chest pain attributed to GERD; minimal relief from pantoprazole. Significant family history of coronary artery disease noted. Multiple workups in the ED are always normal, also had stress test which was normal last year. - Diastasis recti noted following several abdominal surgeries, with patient reporting morning prominence and associated discomfort. - Reports bilateral ear pain without infection history. - Thyroid function was tested nine months prior, indicating low end of normal range without intervention. Physical Exam General: Cooperative, healthy appearing, comfortable, no acute distress and well developed Orientation: Patient oriented x3 Limitations: No limitations Head: Pain in the left side of the head, headache noted Ears: Hearing grossly normal bilaterally, EAC normal bilaterally, TM's normal bilaterally Nose: Normal External nose present Face and sinus: Normal facial exam Mouth/throat: posterior orophaynx erythema with cobblestoning Eyes: Appearance normal, both eyes and all related structures Neck: Normal visual inspection and Yes full ROM Respiratory: Normal respiratory effort and able to speak in complete sentences. Cardiovascular: Regular rate and rhythm. Normal S1 and S2 Skin: No rashes or lesions noted Neuro: Patient oriented x3 Extremities: Normal to inspection [facility] Medical History Balance disorder Gait instability Left lower quadrant pain Abdominal wall bulge Hyperlipidemia CAD (coronary artery disease) Osteoporosis Rectal pain Anxiety Abdominal wall hernia Annual physical exam Abdominal pain Hx of breast cancer History of diverticulitis GERD (gastroesophageal reflux disease) History of snoring HTN (hypertension) Surgical History History of breast reconstruction H/O right mastectomy H/O left mastectomy Hx of varicose vein stripping Hx of carpal tunnel repair Hx of hammer toe correction H/O partial resection of colon H/O esophagogastroduodenoscopy Hx of colonoscopy Family History Father Alzheimer's dementia Unknown family medical history Mother CVD (cardiovascular disease) Myocardial infarction Maternal Grandmother Diabetes mellitus Maternal Grandfather No problems noted. Paternal Grandfather No problems noted. Paternal Grandmother No problems noted. Daughter No problems noted. Daughter No problems noted. Brother Substance use disorder Brother No problems noted. Brother No problems noted. Brother No problems noted. Brother Myocardial infarction Brother Throat cancer Myocardial infarction Maternal Aunt Stomach cancer Sister Myocardial infarction Social History Household Members Other:: lives alone, exercise occasionally Housing: House Are you a primary customer care team coach to a significant other at home: No Do you presently have visiting nurse or other home services: No Alcohol intake: current Alcohol intake frequency: a few times a month Alcohol type: beer Patient Tobacco Use Status: Former Tobacco user e-Cigarette/Vaping Use: Never Used service: No Current occupational status: employed Review of Systems Const All systems reviewed & are unremarkable except as noted in HPI and below Physical Exam Vital Signs: Last Vital Signs Pulse 75 03/10/25 13:34 BP 122/80 03/10/25 13:34 Pulse Ox 94 03/10/25 13:34 Oxygen Delivery Method Room Air 03/10/25 13:34 Results AMB Urinalysis, Automated UA Leukoctes 0 Gurmeet/uL Last Edit by FIGUEROA Lovelace on 03/10/25 13:49 UA Nitrite Negative Last Edit by FIGUEROA Lovelace on 03/10/25 13:49 UA Urobilinogen 0.2 mg/dL Last Edit by Grzegorz Anguiano CCM on 03/10/25 13:49 UA Protein 0 mg/dL Last Edit by Grzegorz Anguiano [facility] on 03/10/25 13:49 UA pH 6.0 Last Edit by Grzegorz Anguiano [facility] on 03/10/25 13:49 UA Blood 0 Piter/uL Last Edit by Grzegorz Anguiano [facility] on 03/10/25 13:49 UA Specific [place] 1.025 Last Edit by Grzegorz Anguiano [facility] on 03/10/25 13:49 UA Ketone Negative Last Edit by Grzegorz Anguiano [facility] on 03/10/25 13:49 UA Bilirubin 0 mg/dL Last Edit by Grzegorz Anguiano [facility] on 03/10/25 13:49 UA Glucose 0 mg/dL Last Edit by Grzegorz Anguiano [facility] on 03/10/25 13:49 Results Reviewed Results Reviewed: Laboratory Last Values Urine pH (Auto) 6.0 03/10/25 13:48 Specific [place] (Auto) 1.025 03/10/25 13:48 Urine Protein (Auto) 0 mg/dL 03/10/25 13:48 Glucose (UA)(Auto) 0 mg/dL 03/10/25 13:48 Urine Ketones (Auto) Negative 03/10/25 13:48 Urine Blood (Auto) 0 Piter/uL 03/10/25 13:48 Urine Nitrite (Auto) Negative 03/10/25 13:48 Urine Bilirubin (Auto) 0 mg/dL 03/10/25 13:48 Urine Urobilinogen (Auto) 0.2 mg/dL 03/10/25 13:48 Leukocyte Esterase (Auto) 0 Gurmeet/uL 03/10/25 13:48 Assessment & Plan Assessment & Plan (1) Polyuria: Code(s): R35.89 - Other polyuria Plan: UA negative for blood and infection. Likely unrelated to her known diastases recti. Monitor for further symptoms. Patient was informed and verbally consented to the use of an ambient scribe for clinic note documentation during this visit. (2) Fatigue: Code(s): R53.83 - Other fatigue Qualifiers: Fatigue type: unspecified Qualified Code(s): R53.83 - Other fatigue Plan: Also recommended to check the thyroid function with her primary care physician, which may relate to fatigue, tachycardia and hair changes. (3) Nausea alone: Code(s): R11.0 - Nausea Plan: The nausea and tachycardia may be linked to oral minoxidil. Recommended pt follow up with Derm prescriber to discuss. (4) Hair loss: Code(s): L65.9 - Nonscarring hair loss, unspecified Plan: Also recommended to check the thyroid function with her primary care physician, which may relate to fatigue, tachycardia and hair changes. (5) Seasonal allergies: Code(s): J30.2 - Other seasonal allergic rhinitis Plan: An allergy medication is suggested to address possible allergies causing ear discomfort. (6) Tachycardia: Code(s): R00.0 - Tachycardia, unspecified Plan: The patient's coronary artery disease is of notable family history, yet previous stress testing shows no issues. Additionally, reiterated the need to seek emergency care for concerning symptoms like severe chest pain coupled with nausea and sweating. Management for her GERD includes pantoprazole, and further evaluation is advisable if cardiac symptoms persist. Encouraged pt to follow up with her Frame Expander. Orders: Orders AMB Urinalysis Automated Today Z13.9 - Encounter for screening, unspecified Coding Level of Care Code New Pt Level 5 (89910) Diagnoses Polyuria R35.89 Fatigue, unspecified type R53.83 Fatigue type: unspecified Nausea alone R11.0 Hair loss L65.9 Seasonal allergies J30.2 Tachycardia R00.0
[2025-03-10 13:34] VITALS: BP 122/80; PULSE 75; O2SAT 94
== END 2025-03-10 14:09 | disposition home or self-care (01) ==
PROVIDERS: PCP Internal Medicine; Visit Provider Physician Assistant
DX: R35.89 Other polyuria (principal); R53.83 Other fatigue; R11.0 Nausea; L65.9 Nonscarring hair loss, unspecified; J30.2 Other seasonal allergic rhinitis; R00.0 Tachycardia, unspecified

== ENCOUNTER → 2025-03-10 13:26 | Outpatient (BNVA) | payer OTHER, SELFPAY | PROVIDERS: PCP Internal Medicine; Visit Provider Physician Assistant | DX: R35.89 Other polyuria (principal); R53.83 Other fatigue; R11.0 Nausea; L65.9 Nonscarring hair loss, unspecified; J30.2 Other seasonal allergic rhinitis; R00.0 Tachycardia, unspecified | CPT/HCPCS: 81003 ==

== ENCOUNTER 2025-03-13 12:17 | Outpatient (REF) | payer OTHER, SELFPAY ==
[2025-03-13 12:34] LABS: MANUAL DIFF FLAG NO
[2025-03-13 14:24] LABS: Basophils Absolute Auto 0.1 X10*3/uL (0.0-0.2); Eosinophils Absolute Auto 0.2 X10*3/uL (0.0-0.4); Hemoglobin 14.6 g/dl (12.0-16.0); Imm Gran Abs Auto 0.01 X10*3/uL (0.00-0.03); Imm Gran Pct Auto 0.1 % (0.0-0.4); Lymphocytes Absolute Auto 2.4 X10*3/uL (1.2-4.9); Lymphocytes Percent Auto 36.3 % (20-40); Mean Corpuscular HGB Conc 33.2 g/dl (31.0-35.0); Mean Corpuscular Hemoglobin 30.4 pg (27.0-33.0); Mean Corpuscular Volume 91.5 fL (80.0-98.0); Mean Platelet Volume 11.3 fL (9.4-12.3); Monocytes Absolute Auto 0.7 X10*3/uL (0.1-1.2); Monocytes Percent Auto 10.7 % (2-11); Neutrophils Absolute Auto 3.3 x10*3/uL (2.0-8.3); Neutrophils Percent Auto 48.9 % (45-73); Platelet Count 283 X10*3/uL (160-400); Red Blood Count 4.81 X10*6/uL (4.20-5.50); Red Cell Distribution Width 12.8 % (11.0-16.0); White Blood Count 6.7 X10*3/uL (4.8-10.8)
--- OUTSIDE RECORDS SUMMARY | 2025-03-13 14:34 | XMS_ITS ---
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 Primary Care Provider Codie Santiago [phone] REASON FOR VISIT BONE DENSITY Encounters Encounter Location Date Provider Diagnosis [facility] [employer] [facility] [address] [place] [address] 10/17/2023 Codie Caal Plan Of Treatment Next Appt Details Provider Name:Codie alejandro, 10/24/2025 09:10:00 AM, [address], [address], [place], [address], Progress Notes * DENILSON MCFARLADNHDOB:[birth year] (72 yo F)Acc No.[id number]:10/17/2023 Patient:?BELLA MCFARLAND :1950???Age:72 Y???Sex:Female Address:[address] [place] [address] , [place], [address] * true * Date:? Generated for Printi ng/Faxing/eTransmitting on:?03/13/2025 02:34 PM EDT
--- OUTSIDE RECORDS SUMMARY | 2025-03-13 14:34 | XMS_ITS ---
Author Organization [facility] [employer] [facility] [facility] Address [address] [place] [address] Care Team Providers Care Chin Strap Maker Name Role Phone ROSS DYE M.D. Primary Care Provider Codie Santiago [phone] REASON FOR VISIT BD RESULTS Encounters Encounter Location Date Provider Diagnosis [facility] [employer] [facility] [address] [place] [address] 10/17/2023 Codie Caal Plan Of Treatment Next Appt Details Provider Name:Codie alejandro, 10/24/2025 09:10:00 AM, [address], [address], [place], [address], Progress Notes * DENILSON MCFARLANDHDOB:[birth year] (72 yo F)Acc No.[id number]:10/17/2023 Patient:?BELLA MCFARLAND :1950???Age:72 Y???Sex:Female Address:[address] [place] [address] , [place], [address] * true * Date:? Generated for Printi ng/Faxing/eTransmitting on:?03/13/2025 02:34 PM EDT
--- OUTSIDE RECORDS SUMMARY | 2025-03-13 14:35 | XMS_ITS | Patient Health Record ---
Author Organization [facility] Address [address] [place] [address] Care Team Providers Care Landscape Contractor Name Role Phone ROSS DYE M.D. Primary Care Provider Codie Santiago Unavailable [phone] Allergies No Known Allergies Results Component Value Reference Range Notes Urinalysis Reviewed date:10/22/2024 08:30:17 AM Interpretation: Performing Lab: Notes/Report: PH 5.0 PROTEIN Neg GLUCOSE Neg BLOOD Neg Reason For Referral No Information Medications Medication SIG (Take, Route, Frequency, Duration) Notes Start Date End Date Status Timolol Maleate 0.5 % Ophthalmic for 90 Active Rosuvastatin Calcium 40 MG 1 tablet Oral ly Once a day Active Metoprolol Succinate ER 50 MG 1 tablet Orally Once a day Active Pantoprazole Sodium Active Vitamin B12 Active Hair Regrowth for Women Active Collagen Active Aspirin Low Dose 81 MG Oral for 30 Active Vitamin D3 50 MCG (1999 UT) Oral for 90 Active Social History Tobacco Use: Social History Observation Description Date Details (start date - stop date) Former Smoker NA - NA Sexual History Question Answer Notes Had sex in the past 12 months (vaginal, oral, or anal)? No AUDIT-C (Standard) Question Answer Notes Did you have a drink contain ing alcohol in the past year? Yes How often did you have six o r more drinks on one occasion in the past year? Never (0 point) How many drinks did you have on a typical day when you were drinking in the past year? 1 or 2 drinks (0 point) How often did you have a dri nk containing alcohol in the past year? Monthly or less (1 point) Points 1 Interpretation Negative Tobacco Control (Standard) Question Answer Notes Tobacco use: Former smoker How long has it been since you last smoked? Douglas ter than 10 years Problems Problem Type SNOMED Code ICD Code Onset Dates Problem Status W/U Status Risk Notes Problem Postmenopausal atrophic vaginitis (48026343) Postmenopausal atrophic vaginitis (N95.2) Active confirmed Problem Age-related osteoporosis (930671637) Age-related osteoporosis without current pathological fracture (M81.0) Active confirmed Problem Malignant neoplasm of female breast (464839820) Malignant neoplasm of unspecified site of unspecified female breast (C50.919) Active confirmed Problem Personal history of primary malignant neoplasm of breast (000483703) Personal history of malignant neoplasm of breast (Z85.3) Active confirmed Problem History of dysplasia of cervix (588468194) Personal history of cervical dysplasia (Z87.410) Active confirmed Problem 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) Active confirmed Major Problem Essential hypertension (82553954) Unspecified essential hypertension (401.9) Active confirmed Major Problem Varicose veins of lower extremity (47206689) Varicose veins of the lower extremities with other complications (454.8) Active confirmed Major Problem Abscess of Bartholin's gland (97825789) Abscess of Bartholin's gland (616.3) Active confirmed Major Problem Menopausal symptom (48401270) Symptomatic menopausal or female climacteric states (627.2) Active confirmed Major Problem Disorder of bone and articular cartilage (disorder) (677716027) Disorder of bone and cartilage, unspecified (733.90) Active confirmed Diag Problem Gynecological examination normal (133788118943078) Routine gynecological examination (V72.31) Active confirmed Problem Screening for malignant neoplasm of colon (354006497) Special screening for malignant neoplasms, colon (V76.51) Active confirmed Major Vital Signs Temperature 97.9 degrees Fahrenheit 10/22/2024 Blood pressure diastolic 80 mm Hg 10/22/2024 Height 62.5 in 10/22/2024 Blood pressure systolic 128 mm Hg 10/22/2024 Weight 158 lbs 10/22/2024 BMI 28.43 kg/m2 10/22/2024 Encounters Encounter Location Date Provider Diagnosis [address] [place] [address] 10/22/2024 Codie Caal Encounter for gynecological examination (general) (routine) without abnormal findings Z01.419 ; Encounter for other screening for malignant neoplasm of breast Z12.39 ; Personal history of malignant neoplasm of breast Z85.3 ; Age-related osteoporosis without current pathological fracture M81.0 and Personal history of cervical dysplasia Z87.410 Assessments Encounter Date Diagnosis (ICD Code) Assessment Notes Treatment Notes Treatment Clinical Notes Section Notes 10/22/2024 Encounter for gynecological examination (general) (routine) without abnormal findings (ICD-10 - Z01.419) NO MORE PAP TESTS. 10/22/2024 Encounter for other screening for malignant neoplasm of breast (ICD-10 - Z12.39) REGULAR SBE'S WERE RECOMMENDED. 10/22/2024 Personal history of malignant neoplasm of breast (ICD-10 - Z85.3) S/P BILATERAL MASTECTOMIES. 10/22/2024 Age-related osteoporosis without current pathological fracture (ICD-10 - M81.0) DISCUSSED HER IMPROVING BMD'S. DISCUSSED OSTEOPOROSIS AND ITS IMPACT ON HER HEALTH. ADEQUATE CALCIUM AND VIT D. WEIGHT BEARING EXERCISES. REPEAT BMD IN 2024. 10/22/2024 Personal history of cervical dysplasia (ICD-10 - Z87.410) DISCUSSED PREVIOUS LEEP AND NELSON. REASSURED PAT OF NEGATIVE PAP TESTS WITH NEGATIVE HPV TYPING. Plan Of Treatment Pending Test Test Name Order Date Pap IG, Ct, rfx HPV all pth 12/17/2014 MAMMOGRAM, SCREENING 12/17/2014 MAMMOGRAM, SCREENING 05/09/2017 MAMMOGRAM, SCREENING 06/01/2018 MAMMOGRAM, SCREENING 08/26/2019 MAMMOGRAM, SCREENING 09/23/2020 MAMMOGRAM, SCREENING 10/08/2021 MAMMOGRAM, SCREENING 10/11/2022 MAMMOGRAM, SCREENING 10/17/2023 MAMMOGRAM, SCREENING 10/22/2024 MAMMOGRAM, SCREENING 12/28/2015 Urinalysis 10/08/2021 THIN PREP,HPV,TRENT IF HPV+ (>29YR)(SCRN) 06/01/2018 BONE DENSITY 10/22/2024 BONE DENSITY 10/11/2022 PELVIC ULTRASOUND W/TRANSVAGINAL 020 Next Appt Details Provider Name:Codie alejandro, 10/24/2025 09:10:00 AM, [address], [address], [place], [address], Insurance Providers Payer Name Payer Address Payer Phone Subscriber Number Group Number Insured Name Patient Relationship to Insured Coverage Start Date Coverage End Date [employer] [place] [address] [address] [place] [address] [id number] DANNY MCFARLANDORAH Self - patient is the insured Medical (General) History Medical History History ICD Code Disorder of bone density and structure, unspecified M85.9 Abscess of Bartholin's gland N75.1 Menopausal and female climacteric states N95.1 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 D05.92 Varicose veins of unspecified lower extr emity with other complications I83.899 Malignant neoplasm of unspecified site o f unspecified female breast C50.919 Personal history of cervical dysplasia Z 87.410 Inconclusive mammogram R92.2 Postmenopausal bleeding N95.0 Age-related osteoporosis without current pathological fracture M81.0 Postmenopausal atrophic vaginitis N95.2 Incisional hernia without obstruction or gangrene K43.2 Abdominal distension (gaseous) R14.0 Surgical History Surgery Date(Month/Year) Foot Surgery Colonoscopy Bowel Resection for Diverticulitis Left Breast Biopsy Right Breast Biopsy LEEP Bilateral Mastectomy & Reconstruction Revision of Breast recontruction 12/2015 Left Finger Trigger Release lLaser Left Eye Glaucoma 09/07/20 Hospitalization History Reason Date(Month/Year) See Surgical Hx
--- OUTSIDE RECORDS SUMMARY | 2025-03-13 14:35 | XMS_ITS ---
Author Organization [facility] Address [address] [place] [address] Care Team Providers Care Wheelchair Driver Name Role Phone ROSS DYE M.D. 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 Douglas ter than 10 years Vital Signs Temperature 97.9 degrees Fahrenheit 10/22/20 24 Blood pressure systolic 128 mm Hg 10/22/20 24 Blood pressure diastolic 80 mm Hg 024 Height 62.5 in 10/22/2024 Weight 158 lbs 10/22/2024 BMI 28.43 kg/m2 10/22/2024 Encounters Encounter Location Date Provider Diagnosis Total [address] [place] [address] 10/22/2024 Codie Caal Encounter for gynecological examination [...] WITH NEGATIVE HPV TYPING. Plan Of Treatment Treatment Notes Assessment Notes Encounter for gynecological examination (general) (routine) without abnormal findings NO MORE PAP TESTS. Encounter for other screenin g for malignant neoplasm of breast REGULAR SBE'S WERE RECOMMENDED. Personal history of malignan t neoplasm of breast S/P BILATERAL MASTECTOMIES. Age-related osteoporosis wit hout current pathological fracture DISCUSSED HER IMPROVING BMD'S. DISCUSSED OSTEOPOROSIS AND ITS IMPACT ON HER HEALTH. ADEQUATE CALCIUM AND VIT D. WEIGHT BEARING EXERCISES. REPEAT BMD IN 2024. Personal history of cervical dysplasia DISCUSSED PREVIOUS LEEP AND NELSON. REASSURED PAT OF NEGATIVE PAP TESTS WITH NEGATIVE HPV TYPING. Pending Test Test Name Order Date MAMMOGRAM, SCREENING 10/22/2024 BONE DENSITY 10/22/2024 Next Appt Details Follow Up: 1 Year, Reason: Provider Name:Codie alejandro, 10/24/2025 09:10:00 AM, [address], [address], [place], [address], Progress Notes * DENILSON MCFARLANDHDOB:[birth year] (73 yo F)Acc No.[id number]:10/22/2024 PROGRESS NOTES Patient:?BELLA MCFARLAND Appointment Provider:?Codie alejandro M.D. :1950???Age:73 Y???Sex:Female D ate:10/22/2024 Address:[address] [place], [place] [id number] Pcp:ROSS DYE M.D. 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 PAT ENTERED MENOPAUSE AT AGE 50.? SHE IS AND NOT SEXUALLY ACTIVE. SHE UNDERWENT LEEP FOR CERVICAL DYSPLASIA IN HER 20'S.? HER PAP TESTS INCLUDING HER LAST ONE IN 2022 HAVE BEEN NEGATIVE AND HPV NEGATIVE. SHE HAD BILATERAL MASTECTOMIES AND BREAST RECONSTRUCTION IN 2014.? SHE IS FOLLOWED AT [facility].? SHE HAS DEVELOPED INCISIONAL HERNIAS ALONG THE LOWER ABDOMEN WHERE TISSUE WAS OBTAINED FOR THE BREAST RECONSTRUCTION.?? SHE IS KNOWN TO BE DIVERTICULOSIS AND RECENTLY DEVELOPED LOWER ABDOMINAL? PAINS AND CONSTIPATION.? CT SCAN WAS ORDERED BY HER PCP, DR DYE AND A THICKENING OF THE DESCENDING COLON WAS NOTED.? SHE HAS BEEN REFERRED BACK TO HER GI (DR CLANCY) BUT NO ONE HAS CALLED HER BACK.? SHE HAS COMPLETED A COURSE OF AUGMENTIN BUT THE PAINS CONTINUE.? SHE WILL CALL DR CLANCY'S OFFICE AGAIN TODAY. HER LAST BMD IN 2022 SHOWED IMPROVEMENT COMPARED TO HER PREVIOUS BMD'S.? T-SCORE AT THE FEMORAL? NECK WENT FROM -2.7 IN 2017 TO -2.4 IN 2020 AND -2.0 IN 2022.? SHE HAS NO HX OF FRACTURES. SHE HAD COLONOSCOPIES DONE IN 2016 AND 2022. MODERNA X 2. ???Annual:? Patient presents for annual exam, ages 60-85, postmenopausal. ?General Health Maintenance:?Current breast complaints:?no breast pain, mass, discharge, or skin changes ?Urinary problems:?patient reports no urinary health problems or bowel health problems ?Calcium intake:?takes adequate calcium via diet and supplementation ?Significant WESTERN TACK ASSEMBLY LINE WORKER problems:?no significant inventory manager symptoms or problems * ROS:?general:?no?chest pain.?no?palpitations.?no?headache.?no?cough.?no?shortness of breath.?no?fever.?no?unexplained weight loss.?no?nausea/vomiting.?no?change in bowel movements.?no blood in stool.?no?genitourinary complaints.?no?skin complaints.? * Medical History:? 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 * OB History:?Total pregnancies?2.?Total living children?2.?NVD?2.? * Surgical History:?Foot Surge ry Colonoscopy Bowel Resection for Diverticulitis Left Breast Biopsy Right Breast Biopsy LEEP Bilateral Mastectomy & Reconstruction 10/2015Revision of Breast recontruction 12/2015Left Finger Trigger Release lLaser Left Eye Glaucoma 09/07/20 * Hospitalization/Major Diagno stic Procedure:?See Surgical Hx * Family History:?Mother: dece ased, Lung Cancer.?Father: 87 yrs, Lung cancer, , coronary artery disease, [place], diagnosed with Unspecified cerebral artery occlusion with cerebral infarction.? Sister: ? Uterine or Ovarian Cancer - doing well Brother: Throat Cancer - doing well. * Social History:?Tobacco Use:?Tobacco Control (Standard)?Tobacco use:?Former smoker ?How long has it been since you last smoked??Greater than 10 years ???Sexual History:?Sexual History?Had sex in the past 12 months (vaginal, oral, or anal)??No ?Details of Sexual History?Are you sexually active??No ???Drugs/Alcohol:?Drugs?Have you used drugs other than those for medical reasons in the past 12 months??No ???Miscellaneous:?Children: yes, 2. ?Domestic violence: no. ?Exercise: no. ?Home smoke detector use: yes. ?Living with: n/a. ?Marital status: . ?Natural support system: yes. ?Occupation: Works full-time. ?Sexually active: no. ???Drug/Alcohol:?AUDIT-C (Standard)?Did you have a drink containing alcohol in the past year??Yes ?How often did you have six or more drinks on one occasion in the past year??Never (0 point) ?How many drinks did you have on a typical day when you were drinking in the past year??1 or 2 drinks (0 point) ?How often did you have a drink containing alcohol in the past year??Monthly or less (1 point) ?Points?1 ?Interpretation?Negative * Medications:?TakingCollagen Hair Regrowth for Women Vitamin B12 Pantoprazole Sodium Metoprolol Succinate ER 50 MG Tablet Extended Release 24 Hour 1 tablet Orally Once a day Rosuvastatin Calcium 40 MG Tablet 1 tablet Orally Once a day Timolol Maleate 0.5 % Solution Ophthalmic Vitamin D3 50 MCG (1999 UT) Capsule Oral Aspirin Low Dose 81 MG Tablet Delayed Release Oral Taking Collagen Taking Hair Regrowth for Women Taking Vitamin B12 Taking Pantoprazole Sodium Taking Metoprolol Succinate ER 50 MG Tablet Extended Release 24 Hour 1 tablet Orally Once a day Taking Rosuvastatin Calcium 40 MG Tablet 1 tablet Orally Once a day Taking Timolol Maleate 0.5 % Solution Ophthalmic Taking Vitamin D3 50 MCG (1999 UT) Capsule Oral Taking Aspirin Low Dose 81 MG Tablet Delayed Release Oral DiscontinuedMulti-Vitamin - Tablet 1 tablet Orally Once a day Medication List reviewed and reconciled with the patientDiscontinued Multi- Vitamin - Tablet 1 tablet Orally Once a day Medication List reviewed and reconciled with the patient * Allergies:?N.K.D.A.no[Allerg ies Verified] Objective: * Vitals:?Ht: 62.5 in, Wt: 158 lbs, BMI:28.43Index, BP: 128/80 mm Hg, Temp: 97.9 F. * Examination: ???General Exam: ?CONSTITUTIONAL:?General Appearance:?alert, in no acute distress, normal, well nourished ?NECK/THYROID:?Inspection/Palpation:?normal ?Thyroid:?normal size and shape ?RESPIRATORY:?Auscultation: clear to auscultation bilaterally, Respiratory Effort: normal.?CARDIOVASCULAR:?Auscultation: regular rate and rhythm.?BREAST, Right:?Inspection/Palpation:?SURGICALLY ABSENT ?BREAST, Left:?Inspection/Palpation:?SURGICALLY ABSENT ?GASTROINTESTINAL:?Abdomen:?no masses, nontender, nondistended ?Liver and Spleen:?normal ?Hernias:?MIDLINE LOWER ABDOMINAL INCISIONAL HERNIA IS NOTED (DIASTASIS RECTI) ?MUSCULOSKELETAL:?Inspection/Palpation:?no clubbing, cyanosis, or edema ?SKIN:?Skin:?normal ?NEURO/PSYCH:?Orientation:?time , place, person ?Mood/Affect:?normal?Genitourinary: ?EXTERNAL GENITALIA:?External Genitalia:?normal, no lesions ?VAGINA:?Vagina:?normal appearance, no abnormal discharge, no lesions ?BLADDER:?Bladder:?no mass, nontender ?URETHRA:?Urethra:?no erythema or lesions present ?CERVIX:?Cervix:?no lesions, nontender ?UTERUS:?Uterus:?nontender, normal contour, normal mobility, normal size ?ADNEXA:?Adnexa:?no masses, no tenderness ?ANUS AND PERINEUM:?Anus/Perineum:?visually normal??? Assessment: * Assessment: 1.?Encounter for gynecologic al examination (general) (routine) without abnormal findings - Z01.419???2.?Encounter for other screening for malignant neoplasm of breast - Z12.39???3.?Personal history of malignant neoplasm of breast - Z85.3???4.?Age-related osteoporosis without current pathological fracture - M81.0???5.?Personal history of cervical dysplasia - Z87.410??? Plan: * Treatment: ? Value Reference Range ?PH 5.0 * ?PROTEIN Neg * ?GLUCOSE Neg * ?BLOOD Neg * D., NABOR 10/22/2024 08:30:08 AM EST > Notes: NO MORE PAP TESTS.??2.?Encounter for other screening for malignant neoplasm of breast? Notes: REGULAR SBE'S WERE RECOMMENDED.??3.?Personal history of malignant neoplasm of breast? Notes: S/P BILATERAL MASTECTOMIES.??4.?Age-related osteoporosis without current pathological fracture?Imaging: BONE DENSITY Notes: DISCUSSED HER IMPROVING BMD'S. DISCUSSED OSTEOPOROSIS AND ITS IMPACT ON HER HEALTH. ADEQUATE CALCIUM AND VIT D. WEIGHT BEARING EXERCISES. REPEAT BMD IN 2024.??5.?Personal history of cervical dysplasia? Notes: DISCUSSED PREVIOUS LEEP AND NELSON. REASSURED PAT OF NEGATIVE PAP TESTS WITH NEGATIVE HPV TYPING.?? * Imaging:? * ?Imaging: MAMMOGRAM, SCR EENING * Procedure Codes:? * Preventive Medicine:? ??YOUR PREVENTIVE WELLNESS PLAN:?Osteoporosis prevention?Calcium, D, strength training.?Breast Cancer Screening (Mammogram):?annually.?Cervical Cancer Screening (Pap Smear):?q 3 years with HPV screen.?Colorectal Cancer Screening:?q 10 years.? * Follow Up:?1 Year * Images: Billing Information: * Visit Code:? [id number] Preventive Care Est Pt. Age 65 and over. * Procedure Codes:? * Sign off status: Completed true * Appointment Provider:?Codie Caal M.D. Date:?10/22/2024 Generated for Guicho bob/Faustino/Miquel on:?03/13/2025 02:34 PM EDT History and Physical Notes * HPI (History of Present Illness) Category Sub-Category Detail Notes Category Not es New/Follow-up Patient Consult PAT ENTERED MENOPAUSE AT AGE 50. SHE IS AND NOT SEXUALLY ACTIVE. SHE UNDERWENT LEEP FOR CERVICAL DYSPLASIA IN HER 20'S. HER PAP TESTS INCLUDING HER LAST ONE IN 2022 HAVE BEEN NEGATIVE AND HPV NEGATIVE. SHE HAD BILATERAL MASTECTOMIES AND BREAST RECONSTRUCTION IN 2014. SHE IS FOLLOWED AT [facility]. SHE HAS DEVELOPED INCISIONAL HERNIAS ALONG THE LOWER ABDOMEN WHERE TISSUE WAS OBTAINED FOR THE BREAST RECONSTRUCTION. SHE IS KNOWN TO BE DIVERTICULOSIS AND RECENTLY DEVELOPED LOWER ABDOMINAL PAINS AND CONSTIPATION. CT SCAN WAS ORDERED BY HER PCP, DR DYE AND A THICKENING OF THE DESCENDING COLON WAS NOTED. SHE HAS BEEN REFERRED BACK TO HER GI (DR CLANCY) BUT NO ONE HAS CALLED HER BACK. SHE HAS COMPLETED A COURSE OF AUGMENTIN BUT THE PAINS CONTINUE. SHE WILL CALL DR CLANCY'S OFFICE AGAIN TODAY. HER LAST BMD IN 2022 SHOWED IMPROVEMENT COMPARED TO HER PREVIOUS BMD'S. T-SCORE AT THE FEMORAL NECK WENT FROM -2.7 IN 2017 TO -2.4 IN 2020 AND -2.0 IN 2022. SHE HAS NO HX OF FRACTURES. SHE HAD COLONOSCOPIES DONE IN 2015 AND 2022. MODERNA X 2. 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:: n o significant inventory manager symptoms or problems Examination Category Sub-Category Detail Notes Category Not es General Exam CONSTITUTIONAL: General Appearan ce:: alert, in no acute distress, normal, well nourished NECK/THYROID: Thyroid:: normal size and shape Inspection/Palpation:: normal RESPIRATORY: Auscultation: clear to auscultation bilaterally, Respiratory Effort: normal CARDIOVASCULAR: Auscultation: regula r rate and rhythm GASTROINTESTINAL: Abdomen:: no masses, nontender , nondistended Liver and Spleen:: normal Hernias:: MIDLINE LOWER ABDOMI NAL INCISIONAL HERNIA IS NOTED (DIASTASIS RECTI) MUSCULOSKELETAL: Inspection/Palpation:: no clubb ing, cyanosis, or edema SKIN: Skin:: normal NEURO/PSYCH: Mood/Affect:: normal Orientation:: time , place, person BREAST, Right: Inspection/Palpation:: SURGICALL Y ABSENT BREAST, Left: Inspection/Palpation:: SURGICALL Y ABSENT Genitourinary EXTERNAL GENITALIA: External Genitalia:: nor mal, no lesions VAGINA: Vagina:: normal appearance, no a bnormal discharge, no lesions BLADDER: Bladder:: no mass, nontender URETHRA: Urethra:: no erythema or lesions present CERVIX: Cervix:: no lesions, nontender UTERUS: Uterus:: nontender, normal conto ur, normal mobility, normal size ADNEXA: Adnexa:: no masses, no tendernes s ANUS AND PERINEUM: Anus/Perineum:: visually norm al
[2025-03-13 14:54] LABS: Alanine Aminotransferase 20 U/L (0-31); Albumin Level 4.1 g/dL (3.5-5.0); Alkaline Phosphatase 65 U/L (39-117); Anion Gap 8 (12-20); Aspartate Amino Transferase 23 U/L (5-31); Blood Urea Nitrogen 15 mg/dL (9-16); C Reactive Protein 0.27 mg/dL (< or = 0.50); Calcium 9.4 mg/dL (8.4-10.2); Carbon Dioxide 29 mmol/L (22-29); Chloride 107 mmol/L (96-108); Estimated Glomerular Filt Rate > 60; Free T4 (Free Thyroxine) 1.02 ng/dL (0.71-1.85); Glucose Random 93 mg/dL (60-115); Potassium 4.3 mmol/L (3.3-5.1); Sodium 140 mmol/L (135-145); Total Protein 6.9 g/dL (6.5-8.0)
[2025-03-13 15:06] LABS: Erythrocyte Sedimentation Rate 9 MM/HR (0-20)
== END 2025-03-13 12:18 | disposition home or self-care (01) ==
LOC: HO.LAB 12:17
PROVIDERS: PCP Internal Medicine; Visit Provider Internal Medicine
DX: E03.9 Hypothyroidism, unspecified (principal); R53.83 Other fatigue
CPT/HCPCS: 36415; 80053; 84439; 84443; 85025; 85652; 86140

== ENCOUNTER 2025-04-03 08:01 | Emergency (ER) | payer OTHER, SELFPAY ==
--- NOTE | ~2025-04-03 | CT_ITS ---
EXAMINATION: CT ABDOMEN AND PELVIS WITH CONTRAST CLINICAL INFORMATION: Left lower quadrant abdominal pain. COMPARISON: 10/10/2024. TECHNIQUE: Multidetector volumetric images were obtained from the superior aspect of the liver through the pubic symphysis following administration 85 mL of Omnipaque 350 intravenous contrast. Sagittal and coronal reformatted images were obtained on the technologist's workstation. Oral contrast: No This CT examination was performed using dose optimization techniques as appropriate, variously including the following: *Automated exposure control *Adjustment of mA and/or kV according to patient size (this includes techniques or standardized protocols for targeted exams where dose is matched to indication/reason for exam; i.e. extremities or head) *Use of iterative reconstruction technique FINDINGS: LUNG BASES: The visualized lung bases are unremarkable. LIVER, GALLBLADDER, AND BILIARY TREE: The liver is normal in size, shape, and attenuation. No focal hepatic lesion or biliary ductal dilatation is present. Gallbladder demonstrates a small solitary dependent gallstone. No gallbladder inflammation or wall thickening. PANCREAS: Unremarkable. SPLEEN: Unremarkable. ADRENAL GLANDS: Unremarkable. KIDNEYS AND URETERS: Kidneys demonstrate bilateral left greater than right numerous parapelvic cysts. There is no hydronephrosis or hydroureter. There is no mass. There is no calculus. BLADDER: Unremarkable. GASTROINTESTINAL TRACT: There is wall thickening of the left transverse colon, splenic flexure, descending and sigmoid colon, suggestive of colitis. Line there is extensive diverticulosis of the entire colon without evidence of acute diverticulitis. The stomach is decompressed although there is a suggestion of wall thickening in hyper enhancement which may indicate gastritis. The duodenum and small bowel have a normal appearance. PERITONEUM: There is no ascites and no free air. ABDOMINAL WALL: There has been a ventral hernia repair. No recurrent hernia is seen. LYMPH NODES: Normal. VASCULAR: Mild atheromatous calcification of the aorta and iliac arteries. No aneurysm. PELVIC VISCERA: The uterus and adnexa are unremarkable. OSSEOUS STRUCTURES: No suspicious lytic or blastic bone lesions. Mild spinal degenerative changes. CT/CT abdomen pelvis w IV con IMPRESSION: 1. Mild wall thickening of the left hemicolon, suggestive of segmental colitis. Correlate for signs and symptoms of colitis. 2. Diffuse colonic diverticulosis without evidence of acute diverticulitis. 3. Thickening and hyperemia of the stomach, which is somewhat decompressed, possibly artifactual although gastritis is a consideration. 4. Cholelithiasis without evidence of acute cholecystitis. 5. There is no free intraperitoneal air or ascites. Electronically signed by: Yo Hartley MD 04/03/2025 10:52 AM EDT
--- NOTE | ~2025-04-03 | XR_ITS ---
EXAMINATION: XR CHEST CLINICAL INFORMATION: cp COMPARISON: 08/08/2024. TECHNIQUE: Frontal view of the chest was obtained. FINDINGS: The cardiac, hilar, and mediastinal contours are normal. The lungs are mildly hyperaerated, however clear bilaterally. No pneumothorax or effusion. No focal osseous or soft tissue abnormality. Surgical clips project over both breasts, and the left axilla. XR/XR chest 1V IMPRESSION: No active pulmonary disease. Electronically signed by: Yo Hartley MD 04/03/2025 10:06 AM EDT
--- NOTE | 2025-04-03 08:05 | ECG_ITS ---
Test Reason : chest pain Blood Pressure : */* mmHG Vent. Rate : 69 BPM Atrial Rate : 69 BPM P-R Int : 140 ms QRS Dur : 80 ms QT Int : 376 ms P-R-T Axes : 36 16 39 degrees QTcB Int : 402 ms Normal sinus rhythm Normal ECG When compared with ECG of 08-Aug-2024 06:49, Nonspecific T wave abnormality no longer evident in Lateral leads Referred By: Generic ED Physician Electronically Signed By: NNEKA NAVA MD
[2025-04-03 08:07] VITALS: BP 143/75; PULSE 69; RESP 18; TEMP 36.8; O2SAT 98; BMI 28.7
[2025-04-03 08:30] LABS: MANUAL DIFF FLAG NO
[2025-04-03 08:31] LABS: Basophils Absolute Auto 0.1 X10*3/uL (0.0-0.2); Basophils Percent Auto 0.9 % (0-2); Eosinophils Absolute Auto 0.2 X10*3/uL (0.0-0.4); Eosinophils Percent Auto 2.1 % (0-4); Hematocrit 42.7 % (37.0-47.0); Hemoglobin 14.7 g/dl (12.0-16.0); Imm Gran Abs Auto 0.02 X10*3/uL (0.00-0.03); Imm Gran Pct Auto 0.2 % (0.0-0.4); Lymphocytes Absolute Auto 1.8 X10*3/uL (1.2-4.9); Lymphocytes Percent Auto 21.4 % (20-40); Mean Corpuscular HGB Conc 34.4 g/dl (31.0-35.0); Mean Corpuscular Hemoglobin 30.9 pg (27.0-33.0); Mean Corpuscular Volume 89.9 fL (80.0-98.0); Mean Platelet Volume 10.2 fL (9.4-12.3); Monocytes Absolute Auto 0.7 X10*3/uL (0.1-1.2); Monocytes Percent Auto 8.2 % (2-11); Neutrophils Absolute Auto 5.7 x10*3/uL (2.0-8.3); Neutrophils Percent Auto 67.2 % (45-73); Platelet Count 250 X10*3/uL (160-400); Red Blood Count 4.75 X10*6/uL (4.20-5.50); Red Cell Distribution Width 12.7 % (11.0-16.0); White Blood Count 8.6 X10*3/uL (4.8-10.8)
[2025-04-03 08:32] LABS: Appearance Urine Clear; Color Urine Yellow; Glucose Urine UA Negative (Negative); Leukocyte Esterase Urine Negative (Negative); Nitrite Urine Negative (Negative); PH 5.5 (5.0-9.0); Specific Gravity - Urine 1.015 (1.005-1.025); Urine Blood Negative (Negative); Urine Ketones Negative (Negative); Urine Protein Negative (Neg-Trace)
[2025-04-03 08:46] LABS: Alanine Aminotransferase 24 U/L (0-31); Albumin Level 4.3 g/dL (3.5-5.0); Alkaline Phosphatase 67 U/L (39-117); Anion Gap 12 (12-20); Aspartate Amino Transferase 28 U/L (5-31); Bilirubin Total 1.4 mg/dL (0.0-1.0); Blood Urea Nitrogen 13 mg/dL (9-16); Calcium 9.8 mg/dL (8.4-10.2); Carbon Dioxide 26 mmol/L (22-29); Chloride 108 mmol/L (96-108); Creatinine Clr Calc Pharmacy 67.7; Estimated Glomerular Filt Rate > 60; Glucose Random 108 mg/dL (60-115); Magnesium 2.1 mg/dL (1.6-2.6); Potassium 4.6 mmol/L (3.3-5.1); Sodium 141 mmol/L (135-145)
[2025-04-03 08:53] LABS: Troponin-I High Sensitivity < 2.7 ng/L (<3.5-17.0)
--- NOTE | 2025-04-03 09:23 | ED.GENADULT ---
HPI - General Adult General Chief complaint: General Medical Stated complaint: chest pain Time Seen by Provider: 04/03/25 09:04 Source: patient, RN notes reviewed and old records reviewed Mode of arrival: ambulatory History of Present Illness ED Provider: Ashlyn Guevara PA-C [facility] narrative: 74-year-old female with a past medical history CAD, anxiety, breast CA s/p mastectomy, GERD, HTN, colon resection, presenting to the ED complaining left-sided chest pain since last night with associated nausea, now with left lower quadrant abdominal pain x today. Denies chest pain at present. Denies vomiting, diarrhea/constipation, dysuria/hematuria, flank pain. Related Data Home Medications ?Medication ?Instructions ?Recorded ?Confirmed timolol maleate 0.5 % eye drops 0 drp ophthalmic (eye) QAM 10/20/22 10/24/24 ascorbic acid 30 mg-collagen, tab PO 06/03/24 10/24/24 hydrolyzed 833.3 mg tablet (Collagen Skin Renewal) multivitamin with calcium carb and tab PO 06/03/24 10/24/24 iron tablet minoxidil 2.5 mg tablet 0.5 mg PO 03/10/25 Previous Rx's ?Medication ?Instructions ?Recorded cholecalciferol (vitamin D3) 50 50 mcg PO DAILY #90 caps 08/10/22 mcg (2,000 unit) capsule rosuvastatin 40 mg tablet (Crestor) 40 mg PO DAILY 90 days #90 tabs 05/31/24 ondansetron HCl 4 mg tablet 4 mg PO BID PRN nausea and 11/18/24 vomiting 2 days #4 tabs pantoprazole 40 mg tablet,delayed 40 mg PO DAILY #90 tabs 12/02/24 release metoprolol succinate 50 mg 50 mg PO DAILY #90 tabs 01/13/25 tablet,extended release 24 hr aspirin 81 mg tablet,delayed 81 mg PO DAILY #90 tabs 03/27/25 release Allergies Allergy/AdvReac Type Severity Reaction Status Date / Time adhesive tape AdvReac Mild Unknown Verified 04/03/25 08:10 Review of Systems Review of Systems: Yes all other systems are reviewed and are negative Constitutional: Constitutional: Reports as per [facility] Past Medical History Attestation statement: The following information was validated with the patient. Source: old records reviewed Medical History Balance disorder Gait instability Left lower quadrant pain Abdominal wall bulge Hyperlipidemia CAD (coronary artery disease) Osteoporosis Rectal pain Anxiety Abdominal wall hernia Annual physical exam Abdominal pain Hx of breast cancer History of diverticulitis GERD (gastroesophageal reflux disease) History of snoring HTN (hypertension) Surgical History History of breast reconstruction H/O right mastectomy H/O left mastectomy Hx of varicose vein stripping Hx of carpal tunnel repair Hx of hammer toe correction H/O partial resection of colon H/O esophagogastroduodenoscopy Hx of colonoscopy Family History Family History Father Alzheimer's dementia Unknown family medical history Mother CVD (cardiovascular disease) Myocardial infarction Maternal Grandmother Diabetes mellitus Maternal Grandfather No problems noted. Paternal Grandfather No problems noted. Paternal Grandmother No problems noted. Daughter No problems noted. Daughter No problems noted. Brother Substance use disorder Brother No problems noted. Brother No problems noted. Brother No problems noted. Brother Myocardial infarction Brother Throat cancer Myocardial infarction Maternal Aunt Stomach cancer Sister Myocardial infarction Social History Social History Household Members Other:: lives alone, exercise occasionally Housing: House Are you a primary primary care md to a significant other at home: No Do you presently have visiting nurse or other home services: No Alcohol intake: current Alcohol intake frequency: a few times a month Alcohol type: beer Patient Tobacco Use Status: Former Tobacco user e-Cigarette/Vaping Use: Never Used service: No Current occupational status: employed Physical Exam ED Vital Signs: Vital Signs - 24 hr 04/03/25 08:07 04/03/25 10:58 04/03/25 11:51 Temperature 98.2 F 98.0 F Pulse Rate 69 70 68 Respiratory Rate 18 22 H 16 Blood Pressure 143/75 H 124/51 L 119/55 L Pulse Oximetry 98 95 98 Oxygen Delivery Method Room Air Room Air Room Air BMI result Body Mass Index 28.7 Const General: cooperative, healthy appearing and no acute distress Orientation/consciousness: patient oriented x3 Limitations: no limitations HENMT Head: Yes normal to inspection and Yes atraumatic Ears: hearing grossly normal bilaterally General nose exam: Normal external nose present Face and sinus: Yes normal facial exam Eyes General: appearance normal, both eyes and all related structures EOM: EOMs intact bilaterally Neck Neck: Yes normal visual inspection and Yes no meningeal signs Resp Effort & Inspection: normal respiratory effort and no respiratory distress Auscultation: clear to auscultation bilaterally, no rales, no rhonchi and no wheezes Cardio Rate: regular rate Heart sounds: S1 normal heart sound present and S2 normal heart sound present GI Inspection: Yes normal to inspection Palpation (GI): Soft to palpation, Tenderness to palpation present (GI) in the LLQ; with no rebound tenderness, no guarding and not rigid General: Yes no CVA tenderness Back/Spine/Pelvis Back: no CVA tenderness Skin Rashes: no rashes Wounds: no wounds Neuro General: patient oriented x3, tone normal and no meningeal signs Cranial nerves: Yes CN's II-XII intact bilaterally Gait exam (Neuro): Normal gait present Extrem General: Yes normal to inspection Course Course Course Narrative: -1109--labs reassuring. Troponin negative XR chest 1V IMPRESSION: No active pulmonary disease. CT abdomen pelvis w IV con IMPRESSION: 1. Mild wall thickening of the left hemicolon, suggestive of segmental colitis. Correlate for signs and symptoms of colitis. 2. Diffuse colonic diverticulosis without evidence of acute diverticulitis. 3. Thickening and hyperemia of the stomach, which is somewhat decompressed, possibly artifactual although gastritis is a consideration. 4. Cholelithiasis without evidence of acute cholecystitis. 5. There is no free intraperitoneal air or ascites. >1114--on re-evaluation patient reports symptomatic improvement, denies any abdominal pain at present. Tolerating p.o. Comfortable for discharge home at this time with close PCP follow-up. Results discussed with patient including worrisome signs and symptoms and strict return precautions, and when to return to the emergency department. They verbalized understanding and feel safe for discharge at this time. Medications Administered Discontinued Medications Generic Name Dose Route Start Last Admin Trade Name Freq PRN Reason Stop Dose Admin Sodium Chloride 1,000 mls @ 999 mls/hr 04/03/25 09:30 04/03/25 11:00 Ns IV 04/03/25 10:30 Infused .Q1H1M MALA Infusion Ketorolac Tromethamine 15 mg 04/03/25 09:25 04/03/25 09:37 Ketorolac Tromethamine 15 Mg/Ml Vial IVPUSH 04/03/25 09:26 15 mg ONCE ONE Administration Ondansetron HCl 4 mg 04/03/25 09:25 04/03/25 09:37 Ondansetron Hcl 4 Mg/2 Ml Vial IVPUSH 04/03/25 09:26 4 mg ONCE ONE Administration Medical Decision Making Medical Decision Making [facility] Narrative: 74-year-old female with a past medical history CAD, anxiety, breast CA s/p mastectomy, GERD, HTN, colon resection, presenting to the ED complaining left-sided chest pain since last night with associated nausea, now with left lower quadrant abdominal pain x today. On exam vital signs stable, NAD, nontoxic appearing lungs CTA, abdomen is soft with LLQ tenderness, no rebound or guarding. Concern for atypical ACS vs illness vs diverticulitis vs ? Appendicitis. Low suspicion yellow, UTI, pyelo/bring stone cystitis/lithiasis. Unlikely dissection or PE Plan: EKG, labs, UA, CXR, CT AP, IVF, pain control, re-evaluate Please refer to course for remaining clinical decision making, interpretation of labs/imaging results, and discussions with consultants and/or family members. Differential Diagnosis Differential Diagnoses: The differential diagnosis associated with the presentation includes As above Admission/Observation Consideration of admission/observation: Escalation of care including admission/observation considered Lab Data [facility] Lab Attestation statement: I reviewed the patient's lab results. 04/03/25 08:21 04/03/25 08:21 Labs: Lab Results 04/03/25 04/03/25 04/03/25 Range/Units 08:21 08:26 11:05 WBC 8.6 (4.8-10.8) X10*3/uL RBC 4.75 (4.20-5.50) X10*6/uL Hgb 14.7 (12.0-16.0) g/dl Hct 42.7 (37.0-47.0) % MCV 89.9 (80.0-98.0) fL MCH 30.9 (27.0-33.0) pg MCHC 34.4 (31.0-35.0) g/dl RDW 12.7 (11.0-16.0) % Plt Count 250 (160-400) X10*3/uL MPV 10.2 (9.4-12.3) fL Immature Gran % (Auto) 0.2 (0.0-0.4) % Neut % (Auto) 67.2 (45-73) % Lymph % (Auto) 21.4 (20-40) % [place] % (Auto) 8.2 (2-11) % Eos % (Auto) 2.1 (0-4) % Baso % (Auto) 0.9 (0-2) % Lymph # (Auto) 1.8 (1.2-4.9) X10*3/uL [place] # (Auto) 0.7 (0.1-1.2) X10*3/uL Eos # (Auto) 0.2 (0.0-0.4) X10*3/uL Baso # (Auto) 0.1 (0.0-0.2) X10*3/uL Abs Immat Gran (auto) 0.02 (0.00-0.03) X10*3/uL Absolute Neuts (auto) 5.7 (2.0-8.3) x10*3/uL Absolute Nucleated RBC 0.000 (0.0-0.012) X10*3/uL Nucleated RBC % (auto) 0.0 (0.0-0.2) /100WBC Sodium 141 (135-145) mmol/L Potassium 4.6 (3.3-5.1) mmol/L Chloride 108 (96-108) mmol/L Carbon Dioxide 26 (22-29) mmol/L Anion Gap 12 (12-20) BUN 13 (9-16) mg/dL Creatinine 0.72 (0.5-1.4) mg/dL Estim Creat Clear Calc 67.7 Estimated GFR > 60 Random Glucose 108 (60-115) mg/dL Calcium 9.8 (8.4-10.2) mg/dL Magnesium 2.1 (1.6-2.6) mg/dL Total Bilirubin 1.4 H (0.0-1.0) mg/dL AST 28 (5-31) U/L ALT 24 (0-31) U/L Alkaline Phosphatase 67 (39-117) U/L Troponin I High Sens < 2.7 < 2.7 (<3.5-17.0) ng/L Total Protein 7.0 (6.5-8.0) g/dL Albumin 4.3 (3.5-5.0) g/dL Lipase 26 (8-78) U/L Urine Color Yellow Urine Appearance Clear Urine pH 5.5 (5.0-9.0) Ur Specific [place] 1.015 (1.005-1.025) Urine Protein Negative (Neg-Trace) mg/dL Urine Glucose (UA) Negative (Negative) mg/dL Urine Ketones Negative (Negative) mg/dL Urine Blood Negative (Negative) Urine Nitrite Negative (Negative) Ur Leukocyte Esterase Negative (Negative) Independent Interpretation I performed an independent interpretation of an: EKG (My interpretation EKG normal sinus rhythm rate of 69. UT interval 140. QTC 402. Nonspecific T-wave abnormality no longer evident in lateral leads. No STEMI), Plain X-Ray and CT Scan Radiology Impression Discussion of test interpretation with radiology: I have reviewed the radiologist's reading. External Record Review External record reviewed: Inpatient record, Office record, Outpatient record, Prior outpatient labs, Prior outpatient radiology, Primary care record and Outside ED record Tests considered The following testing was considered but not selected: As above Prescription Management I considered prescription management with: Pain Medication Chronic Conditions Patient?s care impacted by: Cancer and Other Social Determinants Patient?s care significantly limited by Social Determinants of Health including: Other Social Determinant of Health Discharge Plan Discharge Clinical Impression: Colitis, Chest pain Patient Disposition: Home, Self-Care Instructions: Chest Pain (DC), Colitis (ED) Additional Instructions: Your blood work and imaging is reassuring Your CAT scan does show colitis which is inflammation of your bowel Make sure you are staying hydrated at home, take Tylenol and ibuprofen for pain No antibiotics are indicated at this time If your symptoms persist or worsen, pain becomes unbearable, you are unable to eat or drink, persistent nausea, vomiting or diarrhea return to the emergency department Call your PCP for close follow-up Prescriptions: No Action cholecalciferol (vitamin D3) 50 mcg (2,000 unit) capsule 50 mcg PO DAILY Qty: 90 3RF rosuvastatin [Crestor] 40 mg tablet 40 mg PO DAILY 90 Days Qty: 90 3RF ondansetron HCl 4 mg tablet 4 mg PO BID PRN (Reason: nausea and vomiting) 2 Days Qty: 4 0RF pantoprazole 40 mg tablet,delayed release (DR/EC) 40 mg PO DAILY Qty: 90 0RF metoprolol succinate 50 mg tablet extended release 24 hr 50 mg PO DAILY Qty: 90 3RF aspirin 81 mg tablet,delayed release (DR/EC) 81 mg PO DAILY Qty: 90 3RF timolol maleate 0.5 % drops 0 drp ophthalmic (eye) QAM minoxidil 2.5 mg tablet 0.5 mg PO multivitamin-calcium carb-iron Tablet PO Collagen Skin Renewal 30-833.3 mg tablet PO Referrals: Audra Marcos MD [Primary Care Provider] - 5 days Interventions: ED Discharge Assessment Last Done: 04/03/25 11:51 Discharge Date/Time: 04/03/25 11:52 Print Language: Upper Sorbian
[2025-04-03 09:34] LABS: Lipase 26 U/L (8-78)
[2025-04-03] MEDS: 0.9 % Sodium Chloride 1,000 ML 999 ML IV (09:37)
[2025-04-03] MEDS: Ketorolac Tromethamine 15 MG/ML VIAL IVPUSH (09:37)
[2025-04-03] MEDS: ondansetron HCL 4 MG/2 ML VIAL IVPUSH (09:37)
[2025-04-03 10:58] VITALS: BP 124/51; PULSE 70; RESP 22; O2SAT 95
[2025-04-03 11:39] LABS: Troponin-I High Sensitivity < 2.7 ng/L (<3.5-17.0)
[2025-04-03 11:51] VITALS: BP 119/55; PULSE 68; RESP 16; TEMP 36.7; O2SAT 98
== END 2025-04-03 11:52 | disposition home or self-care (01) ==
PROVIDERS: Physician Assistant; Emergency Provider Emergency Medicine; PCP Internal Medicine
DX: K52.9 Noninfective gastroenteritis and colitis, unspecified (principal); R07.89 Other chest pain; I25.10 Atherosclerotic heart disease of native coronary artery without angina pectoris; I10 Essential (primary) hypertension; K57.50 Diverticulosis of both small and large intestine without perforation or abscess without bleeding; K21.9 Gastro-esophageal reflux disease without esophagitis; K63.89 Other specified diseases of intestine; R11.0 Nausea; Z79.899 Other long term (current) drug therapy; Z98.0 Intestinal bypass and anastomosis status; Z90.13 Acquired absence of bilateral breasts and nipples; Z85.3 Personal history of malignant neoplasm of breast
CPT/HCPCS: 36415; 71045; 74177; 80053; 81003; 83690; 83735; 84484; 85025; 93005; 96360; 96361; 96374; 96375; 99284; J1885; J2405

== ENCOUNTER → 2025-04-03 08:05 | Outpatient (BNV) | payer OTHER, SELFPAY | PROVIDERS: Emergency Provider Emergency Medicine; PCP Internal Medicine; Visit Provider Internal Medicine Cardiovascular Disease | DX: R07.9 Chest pain, unspecified (principal) | CPT/HCPCS: 93010 ==

== ENCOUNTER → 2025-04-03 09:22 | Outpatient (BNV) | payer OTHER, SELFPAY | PROVIDERS: Emergency Provider Emergency Medicine; PCP Internal Medicine; Visit Provider Radiology Diagnostic Radiology | DX: K80.20 Calculus of gallbladder without cholecystitis without obstruction (principal); R07.9 Chest pain, unspecified | CPT/HCPCS: 71045; 74177 ==

== ENCOUNTER 2025-05-02 10:48 | Outpatient (AMB) | payer OTHER, SELFPAY ==
[2025-05-02 11:17] VITALS: BP 120/68; PULSE 81; O2SAT 96; BMI 29.2
--- NOTE | 2025-05-02 11:17 | MHC.OFFVIS ---
Vital Signs 05/02/25 11:17 Height 5 ft 3 in Weight 165 lb BMI 29.2 BP 120/68 Blood Pressure Location Rt brachial Position Sitting Pulse 81 Pulse Source Pulse Oximeter Pulse Oximetry (%) 96 Oxygen Delivery Method Room Air Intake Visit Reasons: Follow up Intake Note: patient following up on gait and balance. referred to PT but patient did not book she stated she will further discuss with provider Head Concierge Required: No Accompanied by: Self / Same As Patient Allergies adhesive tape Adverse Reaction (Mild, Verified 05/02/25 11:22) Unknown Medication List - Last Reconciled 05/02/25 by Stephanie Sierra MD ascorbic acid-collagen 30-833.3 mg (Collagen Skin Renewal) tabs PO aspirin 81 mg PO DAILY cholecalciferol (vitamin D3) 50 mcg PO DAILY metoprolol succinate ER 50 mg PO DAILY minoxidil 0.5 mg PO multivitamin-calcium carb-iron tabs PO pantoprazole 40 mg PO DAILY rosuvastatin (Crestor) 40 mg PO DAILY 90 days timolol maleate 0.5% 0 drps ophthalmic (eye) QAM HPI Comments Details: 73y/o female comes for follow up of balance issues which started about 18 mths ago.She had headaches associated with her feeling off balance. The headaches are better , almost resolved but still has episodes of not feeling right in space. she denies any tinnitus , hearing loss. The balance issues are more when she is in a open space or when she is walking.she is not sure if it is due to change in positions.she denies double vision, dysarthria , dysphagia. she denies any ear infections, ear pain, sinus infections. she denies neck or back pain. No urinary incontinence she now reports numbness in the upper lips - few weeks now brandi. she reports excessive fatigue , snoring . [facility] Medical History (Updated 05/02/25 @ 11:37 by Stephanie Sierra MD) Hypersomnia Snoring Balance disorder Gait instability Left lower quadrant pain Abdominal wall bulge Hyperlipidemia CAD (coronary artery disease) Osteoporosis Rectal pain Anxiety Abdominal wall hernia Annual physical exam Abdominal pain Hx of breast cancer History of diverticulitis GERD (gastroesophageal reflux disease) History of snoring HTN (hypertension) Surgical History History of breast reconstruction H/O right mastectomy H/O left mastectomy Hx of varicose vein stripping Hx of carpal tunnel repair Hx of hammer toe correction H/O partial resection of colon H/O esophagogastroduodenoscopy Hx of colonoscopy Family History Father Alzheimer's dementia Unknown family medical history Mother CVD (cardiovascular disease) Myocardial infarction Maternal Grandmother Diabetes mellitus Maternal Grandfather No problems noted. Paternal Grandfather No problems noted. Paternal Grandmother No problems noted. Daughter No problems noted. Daughter No problems noted. Brother Substance use disorder Brother No problems noted. Brother No problems noted. Brother No problems noted. Brother Myocardial infarction Brother Throat cancer Myocardial infarction Maternal Aunt Stomach cancer Sister Myocardial infarction Social History Household Members Other:: lives alone, exercise occasionally Housing: House Are you a primary manager long term care to a significant other at home: No Do you presently have visiting nurse or other home services: No Alcohol intake: current Alcohol intake frequency: a few times a month Alcohol type: beer Patient Tobacco Use Status: Former Tobacco user e-Cigarette/Vaping Use: Never Used service: No Current occupational status: employed Physical Exam Vital Signs: Last Vital Signs Pulse 81 05/02/25 11:17 BP 120/68 05/02/25 11:17 Pulse Ox 96 05/02/25 11:17 Oxygen Delivery Method Room Air 05/02/25 11:17 BMI result Body Mass Index 29.2 Const General: cooperative, healthy appearing and comfortable Nutritional Appearance: average body habitus Orientation/consciousness: patient oriented x3 HEENT Head: Yes normal to inspection and Yes normocephalic Eyes Pupils: Equal, round and reactive pupils present Neuro Other: Gait- mild off balance- good posture, mild decreased arm swing on right , normal base, difficulty with tandem walk General: patient oriented x3, tone normal, moves all extremities and no focal motor deficits Cranial nerves: Yes Facial sensation intact/muscles of mastication intact, Yes Equal, round and reactive pupils present, Yes Bilaterally intact EOM present, Yes Nystagmus not present, Yes Normal facial strength present, Yes Midline tongue present, Yes Symmetric palate elevation present and Yes Ability to bilaterally elevate shoulders present Cognition (Neuro): normal cognition Motor exam (neuro): 5 motor strength present throughout and Normal motor muscle tone present throughout Coordination: [id number] test normal Assessment & Plan Assessment & Plan (1) Balance disorder: Comment: ? vestibular migraine ? vertigo Code(s): R26.89 - Other abnormalities of gait and mobility Category: Medical (2) Snoring: Code(s): R06.83 - Snoring Category: Medical (3) Hypersomnia: Code(s): G47.10 - Hypersomnia, unspecified Category: Medical Plan Home sleep test to r/o sleep apnea. MRI brain - h/o breast ca Her neurological exam was nonfocal today . she denies any other symptoms of brainstem pathology. PT for gait and balance.- did not go -due to a fall in Oct 2024 Her labs were reviewed - normal B 12 levels consider amitriptyline or gabapentin Orders: Orders MR head/brain wo con Today R26.81 - Unsteadiness on feet, R26.89 - Other abnormalities of gait and mobility Coding Level of Care Code Est Pt Level 4 (23347) Complex EM visit Add On G2211 Diagnoses Balance disorder R26.89 Snoring R06.83 Hypersomnia G47.10
== END 2025-05-02 11:49 | disposition home or self-care (01) ==
LOC: HO.HSMS 10:48
PROVIDERS: PCP Internal Medicine; Visit Provider Psychiatry & Neurology Neurology
DX: R26.89 Other abnormalities of gait and mobility (principal); R06.83 Snoring; G47.10 Hypersomnia, unspecified
CPT/HCPCS: 99214

== ENCOUNTER → 2025-05-02 10:48 | Outpatient (BNVA) | payer OTHER, SELFPAY | PROVIDERS: PCP Internal Medicine; Visit Provider Psychiatry & Neurology Neurology ==

== ENCOUNTER → 2025-05-16 07:45 | Outpatient (BNV) | payer OTHER, SELFPAY | PROVIDERS: PCP Internal Medicine; Visit Provider Radiology Diagnostic Radiology | DX: R90.82 White matter disease, unspecified (principal) | CPT/HCPCS: 70551 ==

== ENCOUNTER 2025-05-16 07:59 | Outpatient (REF) | payer OTHER, SELFPAY ==
--- NOTE | ~2025-05-16 | MR_ITS ---
EXAMINATION: MR BRAIN WITHOUT CONTRAST CLINICAL INFORMATION: Other Abnormalities of gait and mobility. History of breast CA. 74-year-old female complaining of head pain left sided, pain bilateral ears, numbness upper lip, foggy feeling, tired . COMPARISON: None available. TECHNIQUE: MRI of the brain was obtained using routine sequences without contrast. Examination performed on a 1.5 Leora Siemens high-field unit. FINDINGS: There is no diffusion restriction. There is no intracranial hemorrhage, acute infarction, mass effect, or edema. Ventricles, sulci, and cisterns are normal in size and configuration for patient age. No shift of midline. No abnormal hemosiderin deposition is identified. There are a few rare scattered punctate foci of white matter T2 hyperintensity in the periventricular, subcortical, and hemispheric deep white matter. These foci are nonspecific but statistically most likely relate to small vessel ischemic changes. Midline structures appear normally formed. The pituitary gland appears normal. Posterior fossa structures appear normal. Cerebellar tonsils are appropriately located. Major flow voids are preserved within the skull base. The globes and orbital contents demonstrate no abnormalities. Paranasal sinuses are clear bilaterally. The mastoids and tympanic cavities are normally aerated. Extracranial soft tissues demonstrate no abnormalities. No suspicious bone marrow changes are evident. There are mild degenerative changes in the left greater than right TM joints. Atlantoaxial joint is normal. MR/MR head/brain wo con IMPRESSION: 1. No evidence of intracranial hemorrhage, acute infarction, mass effect, or edema. 2. Very mild changes of small vessel ischemia. Electronically signed by: Yo Hartley MD 05/16/2025 08:57 AM EDT
== END 2025-05-16 08:00 | disposition home or self-care (01) ==
LOC: HO.MRI 07:59
PROVIDERS: PCP Internal Medicine; Visit Provider Psychiatry & Neurology Neurology
DX: R26.89 Other abnormalities of gait and mobility (principal); R26.81 Unsteadiness on feet; Z85.3 Personal history of malignant neoplasm of breast
CPT/HCPCS: 70551

== ENCOUNTER 2025-06-20 07:02 | Outpatient (REF) | payer OTHER, SELFPAY ==
[2025-06-20 08:26] LABS: Hemoglobin A1C 160.7310 umol/L; Total Hemoglobin (HGBA1C) 4004.6882 umol/L
[2025-06-20 08:43] LABS: Alanine Aminotransferase 25 U/L (0-31); Albumin Level 4.4 g/dL (3.5-5.0); Alkaline Phosphatase 63 U/L (39-117); Anion Gap 12 (12-20); Aspartate Amino Transferase 26 U/L (5-31); Blood Urea Nitrogen 15 mg/dL (9-16); Calcium 9.4 mg/dL (8.4-10.2); Carbon Dioxide 28 mmol/L (22-29); Chloride 108 mmol/L (96-108); Estimated Glomerular Filt Rate > 60; Potassium 4.3 mmol/L (3.3-5.1); Sodium 144 mmol/L (135-145); Total Protein 7.0 g/dL (6.5-8.0)
== END 2025-06-20 07:03 | disposition home or self-care (01) ==
LOC: HO.LAB 07:02
PROVIDERS: PCP Internal Medicine; Visit Provider Internal Medicine
DX: I10 Essential (primary) hypertension (principal); R53.83 Other fatigue
CPT/HCPCS: 36415; 80053; 83036

== ENCOUNTER 2025-07-24 06:28 | Day surgery (SDC) | payer OTHER, SELFPAY ==
[2025-07-22 13:33] VITALS: BMI 29.2
--- NOTE | 2025-07-23 11:34 | HO.ANESPROP2 ---
Documented by User: Ashlyn Farrell NP 07/23/25 11:43 HPI - Anesthesia Eval Consult details Narrative: 74 yr old female for upper endo with wahl Seen by [facility] neuro 04/2025 for follow up on headaches, dizziness, trouble with balance: reported improvement in headaches, had brain MRI 04/2025 that was unremarkable; PT for balance & sleep study were recommended. CAD: follows with [facility] cardiology; seen in ED 03/2025, negative ACS work up, symptoms deemed to be GI etiology. 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; prior h/o breast CA PMFSH Active Problems Active Problems: All Active Problems (Updated 07/22/25 @ 13:36 by Linda Ngo RN) Tachycardia (Acute) Seasonal allergies (Acute) Nausea alone (Acute) Fatigue (Acute) Polyuria (Acute) Diastasis recti (Acute) Acute diverticulitis (Acute) Degenerative tear of glenoid labrum of right shoulder (Acute) Right shoulder pain (Acute) Contracture of joint of finger of left hand (Acute) Trigger middle finger of left hand (Acute) Carpal tunnel syndrome of right wrist (Acute) Painful arc syndrome of right shoulder (Acute) Injury of right rotator cuff (Acute) Lymphedema (Acute) Incisional hernia (Acute) Iron deficiency (Acute) Vitamin D deficiency (Acute) Headache (Acute) Varicose veins of right lower extremity with inflammation (Acute) Raynauds disease (Acute) PAD (peripheral artery disease) (Acute) GERD (gastroesophageal reflux disease) (Acute) Paronychia (Acute) Annual physical exam (Acute) Generalized headaches (Acute) Chest pain (Acute) Hypersomnia (Acute) Snoring (Acute) Balance disorder (Acute) Gait instability (Acute) Left lower quadrant pain (Acute) Abdominal wall bulge (Acute) Hyperlipidemia (Acute) CAD (coronary artery disease) (Acute) Osteoporosis (Acute) Hx of colonoscopy (Acute) Rectal pain (Acute) Anxiety (Acute) Abdominal wall hernia (Acute) HTN (hypertension) (Acute) Abdominal pain (Acute) Hx of breast cancer (Acute) Past Medical History Medical History (Updated 07/22/25 @ 13:36 by Linda Ngo RN) Hypersomnia Snoring Balance disorder Gait instability Left lower quadrant pain Abdominal wall bulge Hyperlipidemia CAD (coronary artery disease) Osteoporosis Rectal pain Anxiety Abdominal wall hernia Abdominal pain Hx of breast cancer History of diverticulitis GERD (gastroesophageal reflux disease) History of snoring HTN (hypertension) Family History Family History Father Alzheimer's dementia Unknown family medical history Mother CVD (cardiovascular disease) Myocardial infarction Maternal Grandmother Diabetes mellitus Maternal Grandfather No problems noted. Paternal Grandfather No problems noted. Paternal Grandmother No problems noted. Daughter No problems noted. Daughter No problems noted. Brother Substance use disorder Brother No problems noted. Brother No problems noted. Brother No problems noted. Brother Myocardial infarction Brother Throat cancer Myocardial infarction Maternal Aunt Stomach cancer Sister Myocardial infarction Family history of problems with anesthesia: No Surgical History Surgical History (Updated 07/22/25 @ 13:29 by Linda Ngo RN) History of breast reconstruction H/O right mastectomy H/O left mastectomy Hx of varicose vein stripping Hx of carpal tunnel repair Hx of hammer toe correction H/O partial resection of colon H/O esophagogastroduodenoscopy Hx of colonoscopy History of Problems with Anesthesia: No Social History Social History Household Members Other:: lives alone, exercise occasionally Housing: House Are you a primary care worker to a significant other at home: No Do you presently have visiting nurse or other home services: No Alcohol intake: current Alcohol intake frequency: does not drink Alcohol type: beer Patient Tobacco Use Status: Former Tobacco user e-Cigarette/Vaping Use: Never Used Have you been hit, kicked, punched, or otherwise hurt by someone within the past year? If so, by whom?: No Are you DNR?: No Advance Directives: No Advance Directives Information Provided: Yes service: No Current occupational status: employed Meds Allergies Allergy/AdvReac Type Severity Reaction Status Date / Time adhesive tape AdvReac Mild Unknown Verified 05/02/25 11:22 Home Medications ?Medication ?Instructions ?Recorded ?Confirmed ?Last Taken ?Type timolol maleate 0.5 % eye drops 1 drp ophthalmic (eye) QAM 10/20/22 07/24/25 Unknown History ascorbic acid 30 mg-collagen, 1 tab PO DAILY 06/03/24 07/22/25 Unknown History hydrolyzed 833.3 mg tablet (Collagen Skin Renewal) multivitamin with calcium carb and 1 tab PO DAILY 06/03/24 07/22/25 Unknown History iron tablet minoxidil 2.5 mg tablet 1.25 mg PO DAILY 03/10/25 07/22/25 Unknown History Exam Height,Weight and Vital Signs: Height 5 ft 3 in Weight 74.843 kg Narrative Narrative: EKG 03/2025 Vent. Rate : 69 BPM Atrial Rate : 69 BPM P-R Int : 140 ms QRS Dur : 80 ms QT Int : 376 ms P-R-T Axes : 36 16 39 degrees QTcB Int : 402 ms Normal sinus rhythm Normal ECG When compared with ECG of 08-Aug-2024 06:49, Nonspecific T wave abnormality no longer evident in Lateral leads Brain MRI 04/2025 IMPRESSION: 1. No evidence of intracranial hemorrhage, acute infarction, mass effect, or edema. 2. Very mild changes of small vessel ischemia. Exercise stress test 11/2023 Exercise stress test with exercise 6 min of Saman protocol, achieving 102% MPHR, without anginal symptoms, with isolated PACs, with hypertensive response to exercise with max BP 196/60, without EKG changes meeting criteria for ischemia during exercise, In recovey there are nonspecific ST/ T wave abnormalities noted inferiorly and V5-V6, asymptomatic BP returned to 136/50. . Test reviewed with Dr Cherry Assessment and Plan Final Anesthetic Review Family History of Problems with Anesthesia: No History of Problems with Anesthesia: No Documented by User: Fabio Tejada MD 07/24/25 07:18 [facility] Past Medical History Medical History (Updated 07/22/25 @ 13:36 by Linda Ngo RN) Hypersomnia Snoring Balance disorder Gait instability Left lower quadrant pain Abdominal wall bulge Hyperlipidemia CAD (coronary artery disease) Osteoporosis Rectal pain Anxiety Abdominal wall hernia Abdominal pain Hx of breast cancer History of diverticulitis GERD (gastroesophageal reflux disease) History of snoring HTN (hypertension) Family History Family History Father Alzheimer's dementia Unknown family medical history Mother CVD (cardiovascular disease) Myocardial infarction Maternal Grandmother Diabetes mellitus Maternal Grandfather No problems noted. Paternal Grandfather No problems noted. Paternal Grandmother No problems noted. Daughter No problems noted. Daughter No problems noted. Brother Substance use disorder Brother No problems noted. Brother No problems noted. Brother No problems noted. Brother Myocardial infarction Brother Throat cancer Myocardial infarction Maternal Aunt Stomach cancer Sister Myocardial infarction Surgical History Surgical History (Updated 07/22/25 @ 13:29 by Linda Ngo RN) History of breast reconstruction H/O right mastectomy H/O left mastectomy Hx of varicose vein stripping Hx of carpal tunnel repair Hx of hammer toe correction H/O partial resection of colon H/O esophagogastroduodenoscopy Hx of colonoscopy Social History Social History Household Members Other:: lives alone, exercise occasionally Housing: House Are you a primary care worker to a significant other at home: No Do you presently have visiting nurse or other home services: No Alcohol intake: current Alcohol intake frequency: does not drink Alcohol type: beer Patient Tobacco Use Status: Former Tobacco user e-Cigarette/Vaping Use: Never Used Have you been hit, kicked, punched, or otherwise hurt by someone within the past year? If so, by whom?: No Are you DNR?: No Advance Directives: No Advance Directives Information Provided: Yes service: No Current occupational status: employed Meds Allergies Allergy/AdvReac Type Severity Reaction Status Date / Time adhesive tape AdvReac Mild Unknown Verified 05/02/25 11:22 Home Medications ?Medication ?Instructions ?Recorded ?Confirmed ?Last Taken ?Type timolol maleate 0.5 % eye drops 1 drp ophthalmic (eye) QAM 10/20/22 07/24/25 Unknown History ascorbic acid 30 mg-collagen, 1 tab PO DAILY 06/03/24 07/22/25 Unknown History hydrolyzed 833.3 mg tablet (Collagen Skin Renewal) multivitamin with calcium carb and 1 tab PO DAILY 06/03/24 07/22/25 Unknown History iron tablet minoxidil 2.5 mg tablet 1.25 mg PO DAILY 03/10/25 07/22/25 Unknown History Exam Airway Mallampati Class: I TM Dist: <=3cm Neck ROM: Full Loose/Missing/Broken Teeth: No Heart: ok Lungs: ok Assessment and Plan Assessment Anesthesia Assessment: Anesthesia Plan Discussed and Chart Reviewed Final Anesthetic Review NPO: Yes ASA Class: III Final Preanesthetic Review: No Changes in Pt Med Stat, Meds/Allgs Chart Reviewed, Consent Obtained/Reviewed and Anes Risks/Benef Reviewed Patient Risk: Intermediate Procedure Risk: Intermediate Anesthetic Plan Anesthetic Plan: Agree w/ Assess. and Plan and TIVA Disposition: Standard PACU
[2025-07-24 06:46] VITALS: BP 115/75; PULSE 80; RESP 18; TEMP 36.9; O2SAT 97; BMI 29.0
[2025-07-24] MEDS: Lactated Ringers 1,000 ML 100 ML IVCONT (07:10)
--- NOTE | 2025-07-24 07:58 | P.HPSUR_ITS ---
Pre-Procedural Eval Section A - 24 Hr Update-Section A only Date of Service: 07/24/25 Section B - Complete if H&P > 30 days Chief Complaint: gerd, Relevant Family History (Specify if Yes): No Relevant Social History: None Present Medications: see Short Stay Collaborative assessment Medical History: Significant History (Hypersomnia Snoring Balance disorder Gait instability Left lower quadrant pain Abdominal wall bulge Hyperlipidemia CAD (coronary artery disease) Osteoporosis Rectal pain Anxiety Abdominal wall hernia Abdominal pain Hx of breast cancer History of diverticulitis GERD (gastroesophageal reflux disease) ) History of Previous Operations: Relevant previous surgery/procedure and date(s) (History of breast reconstruction H/O right mastectomy H/O left mastectomy Hx of varicose vein stripping Hx of carpal tunnel repair Hx of hammer toe correction H/O partial resection of colon H/O esophagogastroduodenoscopy Hx of colonoscopy) Allergies: Allergies Allergy/AdvReac Type Severity Reaction Status Date / Time adhesive tape AdvReac Mild Unknown Verified 05/02/25 11:22 Review of Systems Sugical H&P ROS: Negative: Constitution, Cardiovascular, Respiratory, Neurological, Psychiatric, Hem-Onc, Allergic/Immunologic, Gastrointestinal, Genitourinary, Musculoskeletal, Integumentary, Endocrine and Eyes/Ears/Nose/Throat Exam Surgical H&P Exam: Normal: HEENT, Normal: Heart, Normal: Lungs, Normal: Extre mities, Normal: Abdomen, Normal: Skin and Normal: Neurological Plan Diagnosis/Plan: Unchanged I have reviewed the history and physical and performed a pertinent physical examination on my patient. No changes have occurred unless specified. Time Spent With Patient Time: Total time managing care of this patient today ____ minutes.
--- NOTE | 2025-07-24 08:33 | W.PM.OPN ---
Operative Note Operative Note Date of Service: 07/24/25 Narrative: Procedure Description: EGD Indication: non cardiac chest pain and GERD Anesthesia: MAC FLEXIBLE TRANSORAL UPPER GASTROINTESTINAL ENDOSCOPY UPPER ENDOSCOPY Consent: Indications for the procedure and potential complications of bleeding, perforation, reaction to medications and missed diagnosis were discussed with the patient and informed consent was obtained. Instrument: Olympus GIF H 190 J mid size upper endoscope Monitoring: Vital signs and clinical assessment, continuous EKG monitoring, Pulse oximetry, Carbon Dioxide monitoring and blood pressure monitoring were done throughout the procedure. Procedure: The patient was placed in the left lateral decubitis position and pre-procedure medications were administered and a bite block was placed. The endoscope was inserted into the mouth and advanced under direct vision to the third part of duodenum. A careful inspection was made as the upper endoscope was withdrawn including a retroflexed examination of the proximal stomach; Findings and interventions are described below. Findings: Larynx:normal Esophagus: GE junction at 38 cm, diaphragm hiatus at 38 cm, some bogginess and congestion at GEJ, bx taken from here and from distal esophagus-RITCHIE probe deployed at 32 cm with initial pH 5.9 --OFF PPI Stomach: Patchy erythema in antrum, with fundic gland polyps noted Biopsies were obtained. Grade 2 flap valve on retroflexed examination of the cardia. Duodenum: Normal bulb and descending duodenum, bx taken Intervention: Biopsies as noted above, RITCHIE deployment PLAN: await results from path and RITCHIE GERD precautions
[2025-07-24 08:39] VITALS: BP 92/49; PULSE 77; RESP 18; TEMP 36.1; O2SAT 91
[2025-07-24 08:54] VITALS: BP 106/62; PULSE 70; RESP 16; O2SAT 94
[2025-07-24 09:05] VITALS: BP 117/63; PULSE 70; RESP 16; TEMP 36.3; O2SAT 96
== END 2025-07-24 09:49 | disposition home or self-care (01) ==
PROVIDERS: PCP Internal Medicine; Visit Provider Internal Medicine Gastroenterology
PROC: (CPT 43239; principal; 2025-07-24 08:20)
DX: K21.9 Gastro-esophageal reflux disease without esophagitis (principal); R07.89 Other chest pain; M62.08 Separation of muscle (nontraumatic), other site; K31.7 Polyp of stomach and duodenum; I10 Essential (primary) hypertension; Z79.899 Other long term (current) drug therapy; Z90.49 Acquired absence of other specified parts of digestive tract
CPT/HCPCS: 43239; 88305; 88313; 88342; J2003; J2704

== ENCOUNTER → 2025-07-24 06:28 | Outpatient (BNV) | payer OTHER, SELFPAY | PROVIDERS: PCP Internal Medicine; Visit Provider Internal Medicine Gastroenterology | DX: K21.00 Gastro-esophageal reflux disease with esophagitis, without bleeding (principal); R10.13 Epigastric pain; K29.70 Gastritis, unspecified, without bleeding; K31.7 Polyp of stomach and duodenum | CPT/HCPCS: 43239 ==

== ENCOUNTER 2025-08-08 08:49 | Outpatient (AMB) | payer OTHER, SELFPAY ==
--- NOTE | 2025-08-08 09:19 | A.OFFVIS_ITS ---
VS Expanded 08/08/25 09:27 BP 175/89 H Blood Pressure Location Rt brachial Blood Pressure Position Sitting Pulse 75 Pulse Source Pulse Oximeter Temp 98.1 F Temperature Source Temporal Artery Scan Pulse Oximetry 95 Oxygen Delivery Method Room Air Height 5 ft 3 in Weight 159 lb 6.4 oz BMI 28.2 Body Fat % 35.4 Body Fat Mass 56.4 Fat Free Mass 103.0 Visceral Fat Rating 10.0 Body Water % 45.4 Body Water Mass 72.4 Muscle Mass/Score 97.6 Basal Metabolic Rate/Score 1,388 Intake Visit Reasons: OV Hiatal Hernia - Dr. Lara Ref. Allergies adhesive tape Adverse Reaction (Mild, Verified 08/08/25 09:22) Unknown Medication List - Last Reconciled 08/08/25 by Adarsh Butler MD ascorbic acid-collagen 30-833.3 mg (Collagen Skin Renewal) 1 tab PO DAILY aspirin 81 mg PO DAILY cholecalciferol (vitamin D3) 50 mcg PO DAILY metoprolol succinate ER 50 mg PO DAILY minoxidil 1.25 mg PO DAILY multivitamin-calcium carb-iron 1 tab PO DAILY pantoprazole 40 mg PO DAILY rosuvastatin 40 mg PO DAILY timolol maleate 0.5% 1 drp ophthalmic (eye) QAM HPI Comments Details: Referred to me by Dr. Lara for diastasis recti. The patient is also complaining of frequent nausea and GERD Tests reviewed: 1) CT abd/pelvis 04/13 and 12/13: no true hernia, weak abdominal wall with bulging, cholelithiasis 2) EGD 08/14: esophagitis 3) CXR and EKG 04/13: normal 4) Notes from Dr. Perez 5) home SS 2019: normal [facility] Medical History (Updated 08/08/25 @ 10:03 by Adarsh Butler MD) Diastasis recti Hypersomnia Snoring Balance disorder Gait instability Left lower quadrant pain Abdominal wall bulge Hyperlipidemia CAD (coronary artery disease) Osteoporosis Rectal pain Anxiety Abdominal wall hernia Abdominal pain Hx of breast cancer History of diverticulitis GERD (gastroesophageal reflux disease) History of snoring HTN (hypertension) Surgical History H/O right mastectomy H/O left mastectomy Hx of varicose vein stripping Hx of carpal tunnel repair Hx of hammer toe correction H/O partial resection of colon H/O esophagogastroduodenoscopy Hx of colonoscopy Family History Father Alzheimer's dementia Unknown family medical history Mother CVD (cardiovascular disease) Myocardial infarction Maternal Grandmother Diabetes mellitus Maternal Grandfather No problems noted. Paternal Grandfather No problems noted. Paternal Grandmother No problems noted. Daughter No problems noted. Daughter No problems noted. Brother Substance use disorder Brother No problems noted. Brother No problems noted. Brother No problems noted. Brother Myocardial infarction Brother Throat cancer Myocardial infarction Maternal Aunt Stomach cancer Sister Myocardial infarction Social History Household Members Other:: lives alone, exercise occasionally Housing: House Are you a primary home care chaplain to a significant other at home: No Do you presently have visiting nurse or other home services: No Alcohol intake: current Alcohol intake frequency: does not drink Alcohol type: beer Patient Tobacco Use Status: Former Tobacco user e-Cigarette/Vaping Use: Never Used service: No Current occupational status: employed Physical Exam Vital Signs: Last Vital Signs Temp 98.1 F 08/08/25 09:27 Pulse 75 08/08/25 09:27 BP 175/89 H 08/08/25 09:27 Pulse Ox 95 08/08/25 09:27 Oxygen Delivery Method Room Air 08/08/25 09:27 BMI result Body Mass Index 28.2 GI Inspection: Yes normal to inspection and Yes incision (well healed) Palpation (GI): Soft to palpation and Other GI palpation findings present (bulge inferior to the umbilicus due to diastasis recti) Assessment & Plan Assessment & Plan (1) Diastasis recti: Code(s): M62.08 - Separation of muscle (nontraumatic), other site Category: Medical Plan: 1. As I explained to the patient, there is no true hernia. There is a sig nificant weakness of the abdominal wall especially inferior to the umbilicus due to the bilateral TRAM flaps and overweight status. Due to the TRAM flaps I would not recommend and abdominal muscle plication in an open fashion because it would be a major complication if the blood supply of these flaps was damaged in the process. Also a laparoscopic approach would not be helpful because there is no true hernia and secondly because the laparoscopic approach would not fix the defect but plug the defect with a mesh. 2. I do believe that her symptoms are related to her eating habits and if she lost weight, she would feel better and the symptoms would improve. If they did not improve, then I would do a HIDA scan with CCK to assess for biliary dyskinesia that may be contributing to her symptoms. In that case, a laparoscopic cholecystectomy could benefit provided that weight loss with a different nutritional plan did not improve her symptoms. 3. I also suggested to add the Sucralfate to address the GERD as she has lowered the Pantoprazole dose becuase she thinks its contributing to her symptoms. She does have however biopsy-proven esophagitis. The patient will consider these options and get back to me.
[2025-08-08 09:27] VITALS: BP 175/89; PULSE 75; TEMP 36.7; O2SAT 95; BMI 28.2
== END 2025-08-08 10:16 | disposition home or self-care (01) ==
LOC: HO.HBS 08:49
PROVIDERS: PCP Internal Medicine; Visit Provider Surgery
DX: M62.08 Separation of muscle (nontraumatic), other site (principal); E66.3 Overweight; Z68.28 Body mass index [BMI] 28.0-28.9, adult; Z98.84 Bariatric surgery status
CPT/HCPCS: 99204

== ENCOUNTER → 2025-08-08 08:49 | Outpatient (BNVA) | payer OTHER, SELFPAY | PROVIDERS: PCP Internal Medicine; Visit Provider Surgery | DX: M62.08 Separation of muscle (nontraumatic), other site (principal) ==

== ENCOUNTER → 2025-09-26 07:29 | Outpatient (REF) | payer OTHER, SELFPAY | LOC: HO.CARD 07:29 | PROVIDERS: PCP Radiology Diagnostic Radiology; Visit Provider Internal Medicine Cardiovascular Disease | DX: R00.2 Palpitations (principal); R00.0 Tachycardia, unspecified | CPT/HCPCS: 93225 ==

== ENCOUNTER → 2025-09-26 07:31 | Outpatient (BNV) | payer OTHER, SELFPAY | PROVIDERS: PCP Radiology Diagnostic Radiology; Visit Provider Internal Medicine | DX: R00.2 Palpitations (principal); R07.89 Other chest pain | CPT/HCPCS: 93227 ==

== ENCOUNTER 2025-10-08 08:08 | Outpatient (REF) | payer OTHER, SELFPAY ==
--- NOTE | ~2025-10-08 | MM_ITS ---
EXAMINATION: DXA BONE DENSITY AXIAL HISTORY: M81.0 TECHNIQUE: EnSol Dual energy absorptiometry (DEXA) of the lumbar spine, total left hip, and femoral neck was performed. COMPARISON: Comparison is made with the prior examinations most recent dated September 2023. FINDINGS: The bone mineral density of the lumbar spine is 1.036 g/cm2, corresponding to a T-score of -1.2, and a Z-score of 0.2. This is indicative of osteopenia. This represents a BMD change of 2.1% compared to the prior exam. This is not statistically significant. The bone mineral density of the left total hip is 0.836 g/cm2, corresponding to a T-score of -1.4, and a Z-score of 0. This is indicative of osteopenia. This represents a BMD change of -2% compared to the prior exam. This is not statistically significant. The bone mineral density of the left femoral neck is 0.714 g/cm2, corresponding to a T-score of -2.3, and a Z-score of -0.7. This is indicative of osteopenia. This represents a BMD change of -6.2% compared to the prior exam. This is statistically significant. FRACTURE RISK: The FRAX index suggests a ten year probability of major osteoporotic fracture of 14.6%, and of hip fracture 3.9%. MM/XR DEXA axial skeleton IMPRESSION: Based on bone mineral density, and according to World Health Organization (WHO) criteria, the diagnosis is consistent with osteopenia based on lowest T score of -2.3 in the left femoral neck. Treatment Recommendations: NOF guidelines recommend consideration for treatment in postmenopausal women and men age 50 and older presenting with the following: -A hip or vertebral (clinical or morphometric) fracture. -T-score less than or equal to -2.5 at the femoral neck or spine after appropriate evaluation to exclude secondary causes. -Low bone mass at the hip or spine and a 10-year fracture probability by FRAX of greater than or equal to 3% for hip fracture or greater than or equal to 20% for major osteoporotic fracture based on the [place] adapted WHO algorithm. Other Recommendations: All treatment decisions require clinical judgment and consideration of individual patient factors, including patient preferences, comorbidities, previous drug use, risk factors not captured in the FRAX model (e.g. frailty, falls, vitamin D deficiency, increased bone turnover, interval significant decline in bone density) and possible under or overestimation of fracture risk by FRAX. Additional medical evaluation for secondary cause of low bone mineral density may be appropriate. FUTURE SCAN RECOMMENDATION: People with diagnosed cases of osteoporosis or at high risk for fracture should have regular bone mineral density tests. For patients eligible for Medicare, routine testing is allowed once every 2 years. The testing frequency can be increased to one year for patients who have rapidly progressing disease, those who are receiving or discontinuing medical therapy to restore bone mass, or have additional risk factors. Statistically, 68% of repeat scans fall within 1 SD (+/- 0.010 g/cm2 for AP spine L1-L4) and 1 SD (+/- 0.012 g/cm2 for femur total) FRAX is a trademark of the [employer] [facility] Metabolic Bone Disease, a World Health Organization (WHO) Collaborating Center. Electronically signed by: Sugar Lujan MD 10/08/2025 09:23 AM [facility]
--- OUTSIDE RECORDS SUMMARY | 2025-10-08 15:42 | XMS_ITS | Patient Health Record ---
Author Organization [facility] Address [address] [facility] [place] [address] Care Team Providers Care Tool Crib Attendant Name Role Phone Dorcas Negron MD Primary Care Provider Unavailhaile salbador Carlos Lane Unavailable [phone] Reason For Referral No Information Medications Medication SIG (Take, Route, Frequency, Duration) Notes Start Date End Date Status Wellbutrin XL Once a day Activ e Nabumetone 500 MG 1 tablet Orally thre e a day with food; Duration: 30 days 04/19/2013 Active Glucosamine Chondro Complex Once a day Active Multivitamins as directed Orally O nce a day Active Calcium Magnesium Once a day A ctive Evista 60 MG 1 tablet Orally Once a day; Duration: 30 day(s) Active Problems Problem Type SNOMED Code ICD Code Onset Dates Problem Status W/U Status Risk Notes Problem Disorder of joint of ankle and/or foot (219179521) Arthritis - Degenerative (719.97) Active confirmed Problem Hammer toe (329511733) Hammer toe (735.4) Active confirmed Problem 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, Congenital (754.61) Active confirmed Problem Pain in limb (22181708) Pain in Limb (729.5) Active confirmed Problem Keratoma (07165391) Keratoma (701.1) Active confirmed Problem Exostosis (33865920) Exostosis (726.91) Active confirmed Plan Of Treatment Pending Test Test Name Order Date X ray : Foot, left 2V 04/30/2013 X ray : Foot, left 2V 05/10/2013 X ray : Foot, left 2V 05/28/2013 X ray : Foot, left 2V 07/30/2013 X ray : Foot, left 3V 04/02/2013 Insurance Providers Payer Name Payer Address Payer Phone Subscriber Number Group Number Insured Name Patient Relationship to Insured Coverage Start Date Coverage End Date [facility] [address] [facility] [place], [place] [id number] Siri Montero Self - patient is the insured Medical (General) History Medical History History ICD Code back, hip, knee pain broken bones cancer-LCIS diverticulosis glaucoma-pre RSD-nerve disorder measles mumps chicken pox Surgical History Surgery Date(Month/Year) abdominal surgery hammer toe Ht/L5th & exostosis 04/25/13
--- OUTSIDE RECORDS SUMMARY | 2025-10-08 15:42 | XMS_ITS | Patient Health Record ---
[facility] Organization [facility] Address [address] [place] [address] Care Team Providers Care Associate Financial Analyst Name Role Phone ROSS DYE M.D. Primary Care Provider Codie Santiago Unavailable [phone] Allergies No Known Allergies Results Component Value Reference Range Notes Urinalysis Reviewed date:10/22/2024 08:30:17 AM Interpretation: Performing Lab: Notes/Report: PH 5.0 PROTEIN Neg GLUCOSE Neg BLOOD Neg Reason For Referral No Information Medications Medication SIG (Take, Route, Frequency, Duration) Notes Start Date End Date Status Timolol Maleate 0.5 % Ophthalmic; Duration: 90 Active Rosuvastatin Calcium 40 MG 1 tablet Oral ly Once a day Active Metoprolol Succinate ER 50 MG 1 tablet Orally Once a day Active Pantoprazole Sodium Active Vitamin B12 Active Hair Regrowth for Women Active Collagen Active Aspirin Low Dose 81 MG Oral; Duration: 30 Active Vitamin D3 50 MCG (1999) Oral; Duration: 90 Active Social History Tobacco Use: Social [...] has it been since you last smoked? Grea ter than 10 years Problems Problem Type SNOMED Code ICD Code Onset Dates Problem Status W/U Status Risk Notes Problem Postmenopausal atrophic vaginitis (63089746) Postmenopausal atrophic vaginitis (N95.2) Active confirmed Problem Age-related osteoporosis (329778356) Age-related osteoporosis without current pathological fracture (M81.0) Active confirmed Problem Malignant neoplasm of female breast (747911851) Malignant neoplasm of unspecified site of unspecified female breast (C50.919) Active confirmed Problem Personal history of primary malignant neoplasm of breast (791452089) Personal history of malignant neoplasm of breast (Z85.3) Active confirmed Problem History of dysplasia of cervix (195451485) Personal history of cervical dysplasia (Z87.410) Active confirmed Problem 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) Active confirmed Major Problem Essential hypertension (13751261) Unspecified essential hypertension (401.9) Active confirmed Major Problem Varicose veins of lower extremity (99858665) Varicose veins of the lower extremities with other complications (454.8) Active confirmed Major Problem Abscess of Bartholin's gland (78272890) Abscess of Bartholin's gland (616.3) Active confirmed Major Problem Menopausal symptom (29664634) Symptomatic menopausal or female climacteric states (627.2) Active confirmed Major Problem Disorder of bone and articular cartilage (disorder) (525632690) Disorder of bone and cartilage, unspecified (733.90) Active confirmed Diag Problem Gynecological examination normal (820676261145573) Routine gynecological examination (V72.31) Active confirmed Problem Screening for malignant neoplasm of colon (181954450) Special screening for malignant neoplasms, colon (V76.51) Active confirmed Major Vital Signs Temperature 97.9 degrees Fahrenheit 10/22/2024 Blood pressure diastolic 80 mm Hg 10/22/2024 Height 62.5 in 10/22/2024 Blood pressure systolic 128 mm Hg 10/22/2024 Weight 158 lbs 10/22/2024 BMI 28.43 kg/m2 10/22/2024 Encounters Encounter Location Date Provider Diagnosis [address] [place] [address] 10/22/2024 Coide Caal Encounter for gynecological examination (general) (routine) [...] pth 12/17/2014 MAMMOGRAM, SCREENING 12/17/2014 MAMMOGRAM, SCREENING 06/01/2018 MAMMOGRAM, SCREENING 08/26/2019 MAMMOGRAM, SCREENING 09/23/2020 MAMMOGRAM, SCREENING 10/08/2021 MAMMOGRAM, SCREENING 10/11/2022 MAMMOGRAM, SCREENING 10/17/2023 MAMMOGRAM, SCREENING 10/22/2024 MAMMOGRAM, SCREENING 05/09/2017 MAMMOGRAM, SCREENING 12/28/2015 Urinalysis 10/08/2021 THIN PREP,HPV,TRENT IF HPV+ (>29YR)(SCRN) 06/01/2018 BONE DENSITY 10/11/2022 BONE DENSITY 10/22/2024 PELVIC ULTRASOUND W/TRANSVAGINAL 020 Next Appt Details Provider Name:Codie alejandro, 10/24/2025 09:10:00 AM, [address], [address], [place], [address], Insurance Providers Payer Name Payer Address Payer Phone Subscriber Number Group Number Insured Name Patient Relationship to Insured Coverage Start Date Coverage End Date [employer] [place] [address] [address] [place] [address] [id number] BELLA MCFARLAND Self - patient is the insured Medical [...]
== END 2025-10-08 08:09 | disposition home or self-care (01) ==
LOC: HO.MAMMO 08:08
PROVIDERS: PCP Internal Medicine; Visit Provider Obstetrics & Gynecology Gynecology
DX: M81.0 Age-related osteoporosis without current pathological fracture (principal)
CPT/HCPCS: 77080

== ENCOUNTER → 2025-10-08 08:15 | Outpatient (BNV) | payer OTHER, SELFPAY | PROVIDERS: PCP Internal Medicine; Visit Provider Radiology Diagnostic Radiology | DX: E28.39 Other primary ovarian failure (principal) | CPT/HCPCS: 77080 ==

== ENCOUNTER 2025-11-03 05:00 | Emergency (ER) | payer OTHER, SELFPAY ==
--- NOTE | ~2025-11-03 | XR_ITS ---
CLINICAL HISTORY: chest pain, unsure if hiatal hernia 2 view chest x-ray Comparison: 04/03/2025 Findings: No consolidation or effusion. Heart size is normal. No acute fracture. IMPRESSION: 1. No acute findings. This document has been electronically signed by: Scott Bird MD on 11/03/2025 07:56:42
--- NOTE | 2025-11-03 05:01 | ECG_ITS ---
Test Reason : chest pain Blood Pressure : */* mmHG Vent. Rate : 77 BPM Atrial Rate : 77 BPM P-R Int : 138 ms QRS Dur : 88 ms QT Int : 380 ms P-R-T Axes : 25 11 57 degrees QTcB Int : 430 ms Normal sinus rhythm Normal ECG When compared with ECG of 03-Apr-2025 08:11, Nonspecific T wave abnormality now evident in Lateral leads Referred By: Generic ED Physician Electronically Signed By: Darryl Santana
[2025-11-03 05:07] VITALS: BMI 25.0
[2025-11-03 05:24] VITALS: BP 156/68; PULSE 82; RESP 18; TEMP 36.7; O2SAT 93
[2025-11-03 05:28] LABS: MANUAL DIFF FLAG NO
[2025-11-03 05:29] LABS: Hematocrit 41.9 % (37.0-47.0); Hemoglobin 14.3 g/dl (12.0-16.0); Imm Gran Abs Auto 0.01 X10*3/uL (0.00-0.03); Imm Gran Pct Auto 0.2 % (0.0-0.4); Lymphocytes Absolute Auto 2.3 X10*3/uL (1.2-4.9); Mean Corpuscular HGB Conc 34.1 g/dl (31.0-35.0); Mean Corpuscular Hemoglobin 30.6 pg (27.0-33.0); Mean Corpuscular Volume 89.5 fL (80.0-98.0); NRBC Abs Auto 0.000 X10*3/uL (0.0-0.012); NRBC Pct Auto 0.0 /100WBC (0.0-0.2); Platelet Count 236 X10*3/uL (160-400); Red Blood Count 4.68 X10*6/uL (4.20-5.50); White Blood Count 5.9 X10*3/uL (4.8-10.8)
[2025-11-03 05:41] LABS: Alanine Aminotransferase 23 U/L (0-31); Albumin Level 4.1 g/dL (3.5-5.0); Alkaline Phosphatase 64 U/L (39-117); Anion Gap 14 (12-20); Aspartate Amino Transferase 29 U/L (5-31); Blood Urea Nitrogen 12 mg/dL (9-16); Calcium 9.3 mg/dL (8.4-10.2); Carbon Dioxide 22 mmol/L (22-29); Chloride 112 mmol/L (96-108); Creatinine Clr Calc Pharmacy 66.3; Estimated Glomerular Filt Rate > 60; Potassium 3.9 mmol/L (3.3-5.1); Sodium 144 mmol/L (135-145); Total Protein 6.6 g/dL (6.5-8.0)
[2025-11-03 05:45] LABS: COVID-19 Test Negative (Negative); IDNOW Serial# 152EDE1D; IDNOW Serial# 16C4AD1C; Influenza B2 Negative (Negative)
[2025-11-03 05:49] LABS: Troponin-I High Sensitivity < 2.7 ng/L (<3.5-17.0)
--- NOTE | 2025-11-03 06:59 | ED_ITS ---
HPI - Chest Pain General Chief Complaint: Chest Pain Stated Complaint: CP Time Seen by Provider: 11/03/25 06:58 Source: patient, RN notes reviewed and old records reviewed Mode of arrival: ambulatory Limitations: no limitations History of Present Illness ED Provider: Lina AHN narrative: Patient is a 74-year-old female with history of CAD, HTN, GERD, HLD, diastasis recti presenting to the emergency department with complaint of chest pain which began around 132 2:00 a.m. this morning. Patient reports that she has not been sleeping well for some time. States she fell asleep around 930 then woke around 1:30-2 a.m. with chest pain. Has also been having nausea the past few days. States the chest pain improved when she got up from lying down and started walking around. Denies any vomiting. Denies recent cough or fevers. Reports associated palpitations with the episode of chest pain. Also notes that she has recently been having a twitching in her left upper arm, unsure if this is related to her current symptoms. Was supposed to see Cardiology on 10/20 but the appointment was rescheduled to the end of November. Also noted that GI wanted her to have an outpatient procedure at [facility] to look for esophageal spasms but has not scheduled that appointment yet. MD complaint: chest pain Related Data Home Medications ?Medication ?Instructions ?Recorded ?Confirmed timolol maleate 0.5 % eye drops 1 drp ophthalmic (eye) QAM 10/20/22 08/08/25 ascorbic acid 30 mg-collagen, 1 tab PO DAILY 06/03/24 08/08/25 hydrolyzed 833.3 mg tablet (Collagen Skin Renewal) multivitamin with calcium carb and 1 tab PO DAILY 05/2008/08/25 iron tablet minoxidil 2.5 mg tablet 1.25 mg PO DAILY 03/10/25 Previous Rx's ?Medication ?Instructions ?Recorded cholecalciferol (vitamin D3) 50 50 mcg PO DAILY #90 ca ps 08/10/22 mcg (2,000 unit) capsule metoprolol succinate 50 mg 50 mg PO DAILY #90 tabs tablet,extended release 24 hr aspirin 81 mg tablet,delayed 81 mg PO DAILY #90 tabs 0 03/27/25 release rosuvastatin 40 mg tablet 40 mg PO DAILY #90 tabs 05/20 pantoprazole 40 mg tablet,delayed 40 mg PO DAILY #90 t abs 09/02/25 release Allergies Allergy/AdvReac Type Severity Reaction Status Date / Time adhesive tape AdvReac Mild Unknown Verified 11/03/25 05:09 Review of Systems 2 Review of Systems: as per hpi Yes all other systems are reviewed and are negative Constitutional: Constitutional: Reports as per HPI [facility] Past Medical History Medical History (Updated 11/03/25 @ 10:07 by Liliam Mills NP) Diastasis recti Hypersomnia Snoring Balance disorder Gait instability Left lower quadrant pain Abdominal wall bulge Hyperlipidemia CAD (coronary artery disease) Osteoporosis Rectal pain Anxiety Abdominal wall hernia Abdominal pain Hx of breast cancer History of diverticulitis GERD (gastroesophageal reflux disease) History of snoring HTN (hypertension) Surgical History H/O right mastectomy H/O left mastectomy Hx of varicose vein stripping Hx of carpal tunnel repair Hx of hammer toe correction H/O partial resection of colon H/O esophagogastroduodenoscopy Hx of colonoscopy Family History Family History Father Alzheimer's dementia Unknown family medical history Mother CVD (cardiovascular disease) Myocardial infarction Maternal Grandmother Diabetes mellitus Maternal Grandfather No problems noted. Paternal Grandfather No problems noted. Paternal Grandmother No problems noted. Daughter No problems noted. Daughter No problems noted. Brother Substance use disorder Brother No problems noted. Brother No problems noted. Brother No problems noted. Brother Myocardial infarction Brother Throat cancer Myocardial infarction Maternal Aunt Stomach cancer Sister Myocardial infarction Social History Social History Household Members Other:: lives alone, exercise occasionally Housing: House Are you a primary resident care aid to a significant other at home: No Do you presently have visiting nurse or other home services: No Alcohol intake: current Alcohol intake frequency: holidays/special occasions only Alcohol type: beer Patient Tobacco Use Status: Former Tobacco user e-Cigarette/Vaping Use: Never Used service: No Current occupational status: employed Physical Exam 2 Vital Signs: Vital Signs: Last Vital Signs Temp 98.1 F 11/03/25 07:45 Pulse 74 11/03/25 07:45 Resp 16 11/03/25 07:45 BP 148/65 H 11/03/25 07:45 Pulse Ox 97 11/03/25 07:45 O2 Del Method Room Air 11/03/25 07:45 BMI result Body Mass Index 25.0 Vital signs have been reviewed and appear to be correct. Blood pressure normal. Heart rate normal. Respiratory rate normal. Temperature normal. Oxygen saturation normal. Const: General: cooperative, healthy appearing and no acute distress O rientation/consciousness: oriented to person, oriented to place, oriented to time and patient oriented x3 Limitations: no limitations HEENT: Head: Yes normocephalic and Yes atraumatic Ears: external ears normal General nose exam: Normal external nose present Face and sinus: Yes face symmetric Mouth: oropharynx normal and moist mucous membranes Throat: Yes uvula midline Eyes: Pupils: Equal, round and reactive pupils present Neck: Neck: Yes normal visual inspection and Yes supple Resp: Effort & Inspection: normal respiratory effort and able to speak in complete sentences Auscultation: clear to auscultation bilaterally Cardio: Rate: regular rate Rhythm: regular rhythm Heart sounds: S1 normal heart sound present and S2 normal heart sound present GI: Palpation (GI): Soft to palpation and nontender Auscultation: n ormoactive bowel sounds : General: Yes no CVA tenderness Back/Spine/Pelvis: Back: no CVA tenderness Skin: General skin exam: elasticity normal and turgor normal Neuro: General: oriented to person, oriented to place, oriented to time, patient oriented x3, moves all extremities, no focal motor deficits and CN's II- XI intact bilaterally Cranial nerves: Yes Equal, round and reactive pupils present Cognition (Neuro): normal cognition Extrem: General: Yes full ROM, Yes no pedal edema and Yes no calf tenderness Psych: Mental Status: mental status grossly normal Affect: normal affect Thought process: Normal thought process present Medical Decision Making Medical Decision Making MDM Narrative: Patient is a 74-year-old female with history of CAD, HTN, GERD, HLD, diastasis recti presenting to the emergency department with complaint of chest pain which began around 132 2:00 a.m. this morning. On exam patient is awake, A+Ox3, VS WNL, afebrile, normal neurological exam without focal deficits, physical exam findings as above. Given reported symptoms and physical exam findings, initial differential includes but is not limited to ACS/MT, GERD, PUD, esophageal spasms, musculoskeletal pain. Labs notable for negative troponin x2, otherwise unremarkable. X-ray chest notable for no acute abnormality, no evidence of pneumonia or pneumothorax. My interpretation is in agreement with the radiologist's interpretation. EKG shows normal sinus rhythm. HEART score of 3. Feel patient is stable for discharge for outpatient follow up. Advised close follow up with GI as well. Return precautions discussed. Patient verbalized understanding of and agreement with plan. Differential Diagnosis Differential Diagnoses: The differential diagnosis associated with the presentation includes as per the [facility] Admission/Observation Consideration of admission/observation: Escalation of care including admission/observation considered Patient would have been admitted to the hospital and transferred to appropriate facility had their clinical presentation warranted hospital admission. Lab Data [facility] Lab Attestation statement: I reviewed the patient's lab results. as per the [facility] 11/03/25 05:21 11/03/25 05:21 Labs: Lab Results 11/03/25 11/03/25 11/03/25 Range/Units 05:15 05:21 07:43 WBC 5.9 (4.8-10.8) X10*3/uL RBC 4.68 (4.20-5.50) X10*6/uL Hgb 14.3 (12.0-16.0) g/dl Hct 41.9 (37.0-47.0) % MCV 89.5 (80.0-98.0) fL MCH 30.6 (27.0-33.0) pg MCHC 34.1 (31.0-35.0) g/dl RDW 12.8 (11.0-16.0) % Plt Count 236 (160-400) X10*3/uL MPV 10.5 (9.4-12.3) fL Immature Gran % (Auto) 0.2 (0.0-0.4) % Neut % (Auto) 46.2 (45-73) % Lymph % (Auto) 39.3 (20-40) % Upson % (Auto) 10.0 (2-11) % Eos % (Auto) 3.1 (0-4) % Baso % (Auto) 1.2 (0-2) % Lymph # (Auto) 2.3 (1.2-4.9) X10*3/uL Upson # (Auto) 0.6 (0.1-1.2) X10*3/uL Eos # (Auto) 0.2 (0.0-0.4) X10*3/uL Baso # (Auto) 0.1 (0.0-0.2) X10*3/uL Abs Immat Gran (auto) 0.01 (0.00-0.03) X10*3/uL Absolute Neuts (auto) 2.7 (2.0-8.3) x10*3/uL Absolute Nucleated RBC 0.000 (0.0-0.012) X10*3/uL Nucleated RBC % (auto) 0.0 (0.0-0.2) /100WBC Sodium 144 (135-145) mmol/L Potassium 3.9 (3.3-5.1) mmol/L Chloride 112 H (96-108) mmol/L Carbon Dioxide 22 (22-29) mmol/L Anion Gap 14 (12-20) BUN 12 (9-16) mg/dL Creatinine 0.69 (0.5-1.4) mg/dL Estim Creat Clear Calc 66.3 Estimated GFR > 60 Random Glucose 117 H (60-115) mg/dL Calcium 9.3 (8.4-10.2) mg/dL Total Bilirubin 0.9 (0.0-1.0) mg/dL AST 29 (5-31) U/L ALT 23 (0-31) U/L Alkaline Phosphatase 64 (39-117) U/L Troponin I High Sens < 2.7 < 2.7 (<3.5-17.0) ng/L Total Protein 6.6 (6.5-8.0) g/dL Albumin 4.1 (3.5-5.0) g/dL COVID-19 (KHOI) Negative (Negative) COVID-19 Clin Com See Note Influenza Type A (ARTHUR) Negative (Negative) Influenza Type B (ARTHUR) Negative (Negative) Influenza A & B Note See Note Independent Interpretation I performed an independent interpretation of an: EKG (Normal sinus rhythm, rate 77 beats per minute, normal MD interval and QTC) and Plain X-Ray Interpretation: Chest x-ray is without acute abnormality, no evidence of pneumonia or pneumothorax Radiology Impression Discussion of test interpretation with radiology: I have reviewed the radiologist's reading. Radiologist Impression: 2 view chest x-ray Comparison: 04/03/2025 Findings: No consolidation or effusion. Heart size is normal. No acute fracture. IMPRESSION: 1. No acute findings. External Record Review External record reviewed: Inpatient record, Office record and Outpatient record Discharge Plan Discharge Clinical Impression: Chest pain Patient Disposition: Home, Self-Care Instructions: Chest Pain (DC), Noncardiac Chest Pain (ED) Additional Instructions: You were evaluated in the emergency department today for chest pain. 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 We also recommend that you follow up with Dr. Lara (gastroenterology). Please schedule an appointment for follow-up with your primary care physician this week. Return to the emergency department if you experience worsening or uncontrolled chest pain, shortness of breath, lightheadedness, feeling faint, loss of consciousness, nausea, vomiting, or any other concerning symptoms. Prescriptions: No Action cholecalciferol (vitamin D3) 50 mcg (2,000 unit) capsule 50 mcg PO DAILY Qty: 90 3RF metoprolol succinate 50 mg tablet extended release 24 hr 50 mg PO DAILY Qty: 90 3RF aspirin 81 mg tablet,delayed release (DR/EC) 81 mg PO DAILY Qty: 90 3RF rosuvastatin 40 mg tablet 40 mg PO DAILY Qty: 90 3RF pantoprazole 40 mg tablet,delayed release (DR/EC) 40 mg PO DAILY Qty: 90 0RF timolol maleate 0.5 % drops 1 drp ophthalmic (eye) QAM minoxidil 2.5 mg tablet 1.25 mg PO DAILY multivitamin-calcium carb-iron Tablet 1 tab PO DAILY Collagen Skin Renewal 30-833.3 mg tablet 1 tab PO DAILY Print Language: Lao
[2025-11-03 07:43] VITALS: PULSE 77
[2025-11-03 07:45] VITALS: BP 148/65; PULSE 74; RESP 16; TEMP 36.7; O2SAT 97
[2025-11-03 08:14] LABS: Troponin-I High Sensitivity < 2.7 ng/L (<3.5-17.0)
[2025-11-03 10:17] VITALS: BP 129/84; PULSE 85; RESP 15; TEMP 36.6; O2SAT 98
[2025-11-03 10:35] VITALS: BP 129/84; PULSE 85; RESP 15; TEMP 36.6; O2SAT 98
== END 2025-11-03 10:35 | disposition home or self-care (01) ==
PROVIDERS: Registered Nurse Emergency; Emergency Provider Student in an Organized Health Care Education/Training Program; PCP Internal Medicine
DX: R07.9 Chest pain, unspecified (principal); R11.0 Nausea; Z03.818 Encounter for observation for suspected exposure to other biological agents ruled out; I10 Essential (primary) hypertension; K21.9 Gastro-esophageal reflux disease without esophagitis; I25.10 Atherosclerotic heart disease of native coronary artery without angina pectoris; E78.5 Hyperlipidemia, unspecified; Z85.3 Personal history of malignant neoplasm of breast; Z87.19 Personal history of other diseases of the digestive system
CPT/HCPCS: 36415; 71046; 80053; 84484; 85025; 87502; 87635; 93005; 99283; 99285

== ENCOUNTER → 2025-11-03 05:01 | Outpatient (BNV) | payer OTHER, SELFPAY | PROVIDERS: Emergency Provider Student in an Organized Health Care Education/Training Program; PCP Internal Medicine; Visit Provider Internal Medicine Cardiovascular Disease | DX: R07.9 Chest pain, unspecified (principal) | CPT/HCPCS: 93010 ==

== ENCOUNTER → 2025-11-03 07:18 | Outpatient (BNV) | payer OTHER, SELFPAY | PROVIDERS: Emergency Provider Student in an Organized Health Care Education/Training Program; PCP Internal Medicine; Visit Provider Specialist | DX: R07.9 Chest pain, unspecified (principal) | CPT/HCPCS: 71046 ==